=== PATIENT | female | born 1970 | race Hispanic/Latino ===

== ENCOUNTER 2019-10-20 04:06 | Inpatient (IN) | payer OTHER ==
[~2019-10-20] VITALS: Ht 162.6 cm; Wt 80.1 kg
[2019-10-20] VITALS (15 sets, daily range): BP systolic 99–137; BP diastolic 60–88
[2019-10-20] MEDS ORDERED: SODIUM CHLORIDE 0.9% 1000ML 1,000 ML IV STA ×3 (04:18→04:50)
[2019-10-20] MEDS ORDERED: ACETAMINOPHEN 1000 MG/100 ML IV STA (04:18)
[2019-10-20] MEDS ORDERED: ACETAMINOPHEN 1000 MG/100 ML 100 ML IV ONE (04:24)
[2019-10-20] MEDS ORDERED: SODIUM CHLORIDE 0.9% 1000ML 1,000 ML ONE (04:26)
--- NOTE | 2019-10-20 04:26 | Emergency Department Note ---
History of Present Illnes History of Present Illness History of Present Illness This is a 49 year old female invalid patient with tracheostomy brought from [facility] for evaluation of hypoxia . Patient was noted to be desaturating at 78% and interventions such as suction and nebulizer was minimally successful in maintaining adequate oxygenation. Patient brought by EMS , patient alert . Historian: Manager Forms/EMS Arrival Mode: [facility] Treatment NEON PUMPER: IV, O2, See EMS Report History limited by: condition of the patient [employer] Technician Required: No Onset (how long ago): hour(s) (q) Severity: severe Duration (how long): hour(s) (1) Progression: worsening Chronicity: new Context: Reports recent illness Exacerbating factors: none Associated symptoms: Reports shortness of breath Past Medical/Family History Physician Review I have reviewed the patient's past medical and family history. Any updates have been documented here. Past Medical History Recent Fever: Yes Clinical Suspicion of Infectio: Yes New/Unexplained Change in Ment: No Past Medical History: Hypertension, Depression Other Medical History: respiratory failure Other Surgery: tracheostomy Social History Smoking Cessation: Former smoker Alcohol Use: None Any Illegal Drug Use: No Review of Systems ROS Narrative Unable to obtain ROS: critical patient Physical Exam Related Data Allergies: Coded Allergies: No Known Allergies (Unverified , 10/20/19) Triage Vital Signs Vital Signs Date Time Temp Pulse Resp B/P (MAP) Pulse Ox O2 Delivery O2 Flow Rate FiO2 10/20/19 04:10 133 27 100 10/20/19 04:15 102.7 134/97 Mechanical Ventilator 10/20/19 07:10 30.0 100 Vital signs reviewed: Yes Physical Exam CONSTITUTIONAL Constitutional: Present well-developed, Present well-nourished, Present obese, Present distressed HENT HENT: Present normocephalic, Present atraumatic, Present oropharynx clear/moist, Present nose normal HENT L/R: Present left ext ear normal, Present right ext ear normal EYES Eyes: Reports PERRL, Reports conjunctivae normal NECK Neck: Present ROM normal PULMONARY Pulmonary: Present other (decreased breathsounds with tachypnea) CARDIOVASCULAR Cardiovascular: Present heart sounds normal, Present tachycardia GASTROINTESTINAL Abdominal: Present soft, Present nontender, Present bowel sounds normal GENITOURINARY Genitourinary: Present exam deferred SKIN Skin: Present warm, Present dry MUSCULOSKELETAL Musculoskeletal: Present ROM normal NEUROLOGICAL Neurological: Present alert, Present oriented x 3, Present no gross motor or sensory deficits PSYCHOLOGICAL Psychological: Present mood/affect normal, Present judgement normal Results Laboratory Lab results reviewed: Yes Imaging Imaging results reviewed: Yes Impressions [place] [id number] Patient Name: NELSON QUINONES MR #: [id number] : 1970 Age/Sex: 49/F Req #: [id number] Adm Physician: KARLA HODGES MD Ordered by: ISRAEL MINOR DO Report #: [id number] Location: [facility] Room/Bed: [place] [address] Procedure: [id number] CT/CT CHEST WO Exam Date: 10/20/19 Exam Time: 614 REPORT STATUS: Signed EXAM: CT Chest WITHOUT contrast INDICATION: ^dx ^[id number] ^0615 ^Y COMPARISON: Same day chest x-ray TECHNIQUE: Chest was scanned utilizing a multidetector helical scanner from the lung apex through the level of the adrenal glands without administration of IV contrast. Absence of intravenous contrast decreases sensitivity for detection of lymphadenopathy and vascular pathology. Coronal and sagittal reformations were obtained. Routine protocol was performed. IV CONTRAST: None COMPLICATIONS: None RADIATION DOSE: Total DLP: 435.25 mGy*cm Estimated effective dose: (DLP x 0.014 x size factor) mSv CTDIvol has been reviewed. It is below the limits set by the Radiation Protocol Committee (RPC). FINDINGS: LINES/ TUBES: Tracheostomy tube in place with tip in mid to superior trachea. Percutaneous gastrostomy tube in place. LUNGS AND AIRWAYS: Diffuse bilateral airspace opacities. Intralobular septal thickening. Bronchiectasis, right lung greater than left. Anterior right middle lobe cysts/pneumatoceles. Airways are normal. PLEURA: Trace bilateral pleural effusions. Trace left pneumothorax. HEART AND MEDIASTINUM: The visualized thyroid gland is normal. Mediastinal lymphadenopathy. No axillary lymphadenopathy. The heart is borderline in size.. Small pericardial effusion. Main pulmonary artery measures 3.4 cm, suggestive of pulmonary hypertension. Mildly hypodense blood pool, indicative of anemia. UPPER ABDOMEN: Unremarkable. BONES: The visualized bony thorax is within normal limits. SOFT TISSUES: Unremarkable. IMPRESSION: Diffuse bilateral interstitial and airspace opacities, along with interlobular septal thickening, representing combination of edema and pneumonia. Trace bilateral pleural effusions. Trace left pneumothorax. Mediastinal lymphadenopathy. Borderline cardiomegaly and trace pericardial effusion. Enlargement of the MA trunk, suggestive of pulmonary hypertension. Findings discussed with Dr. Mcleod at 7:00 AM, 10/20/2019. Signed by: Dr. Donald Garcia MD on 10/20/2019 7:07 AM Dictated By: DONALD GARCIA MD 6 Transcribed By: KAVYA on 10/20/19706 COPY TO: ISRAEL MINOR DO~ Procedures ABG Interpretation ABG Results: ABG 1 Interpretation: respiratory acidosis Central Line Placement Central Line Location: right femoral MD Prep: mask, gown, gloves, other Central Line Prep: Povidone-Iodine 1% Central Line Lumen Inserted: triple Post Procedure: sutured in place, good blood return, all ports aspirated/flushed/capped, sterile dressing applied Post Procedure X-ray: tip of catheter in good condition Patient tolerated procedure: well Complications: none Critical Care Time Total Critical Care Time (min): 31 Critical care time exclusive o: separately billable procedures Critcal care necessary due to: sepsis Critcal care time spent by me: blood dram for specimens, develop tx plan w patient/surrogate, evaluation patient response to tx, examination of patient, obtaining hx from patient/surrogate, order/perform tx or interventions, order/review laboratory studies, order/review radiographic studies, pulse oximetry, review of old charts, vascular access procedures Assessment & Plan Medical Decision Making MDM Diff dx : tracheostomy obstruction, Sepsis, Pneumonia, COVID-19 URI, Fluid overload, PE Reassessment Reassessment time: 05:45 Reassessment Volume reassessment at bedside. Patient continues to be hypotensive despite aggressive fluid therapy. Plan to initiate vasopressor Levophed Assessment & Plan Final Impression: (1) Septic shock (2) Pneumonia (3) Pulmonary edema (4) Hypoxia Depart Disposition: ADMITTED Home Meds Reported Medications Hydrocodone/Acetaminophen (Lortab 10 mg-300 mg/15 ml Elxr) 473 Ml Solution, 5 ML PO Q4H PRN for SEVERE PAIN (7-10), ML 10/20/19 Ferrous Sulfate (FERROUS SULFATE) 325 Mg Tablet, 220 MG GT DAILY 10/20/19 Famotidine (PEPCID) 20 Mg Tablet, 20 MG PO BID, #60 TAB 10/20/19 Enoxaparin Sodium (ENOXAPARIN SODIUM) 40 Mg/0.4 Ml Disp.syrin, 40 MG SC, SYR 10/20/19 Clonazepam (CLONAZEPAM) 0.5 Mg Tablet, 0.5 MG PO Q8HR PRN for ANXIETY, TAB 10/20/19 Chlorhexidine Gluconate (Peridex) 473 Ml Mouthwash, 10 ML PO DAILY, ML 10/20/19 Chlorhexidine Gluconate (CHLORHEXIDINE GLUCONATE) 1 Each Towelette 10/20/19 Cetirizine Hcl (CETIRIZINE HCL) 10 Mg Tab.chew, 10 MG GT DAILY PRN for ALLERGY 10/20/19 Cefepime Hcl/D5w (CEFEPIME-DEXTROSE 1 GM/50 ML) 1 Gm/50 Ml Piggyback, 1 GM IVP Q8HR for 7 Days, #20 PIGGYBACK 10/20/19 Baclofen (BACLOFEN) 10 Mg Tablet, 10 MG PO BID PRN for MUSCLE SPASMS, TAB 10/20/19 Lorazepam (LORAZEPAM) 2 Mg/1 Ml Vial, 0.5 MG PO BID, VIAL 10/20/19 Dextran 70/Hypromellose (ARTIFICIAL TEARS EYE DROPS) 15 Ml Drops, 15 ML OP Q6H, #1 BOTTLE 10/20/19 Acetaminophen (ACETAMINOPHEN) 325 Mg Tablet, 325 MG PO Q4HR PRN for MILD PAIN (1-3) for 5 Days, TAB 10/20/19 Aripiprazole (ABILIFY) 5 Mg Tablet, 5 MG PO DAILY, #30 TAB 10/20/19 Medications in the ED Acetaminophen 100 ml @ ud STK-MED ONCE IV ; Start 10/20/19 at 04:24; Stop 10/20/19 at 04:18; Status DC Sodium Chloride 1,000 ml @ 0 mls/hr Q0M STAT IV ; Start 10/20/19 at 04:18; Stop 10/20/19 at 04:21; Status DC Piperacillin Sod/ Tazobactam Sod 100 ml @ 100 mls/hr Q6H IV ; Start 10/20/19 at 04:30; Stop 10/27/19 at 04:29; Status UNV Acetaminophen 1,000 mg NOW STAT IV ; Start 10/20/19 at 04:18; Stop 10/20/19 at 04:19; Status UNV Sodium Chloride 1,000 ml @ ud STK-MED ONCE .ROUTE ; Start 10/20/19 at 04:26; Stop 10/20/19 at 04:20; Status DC Piperacillin Sod/ Tazobactam Sod 0 ml @ ud STK-MED ONCE .ROUTE ; Start 10/20/19 at 04:27; Stop 10/20/19 at 04:20; Status DC ISRAEL MINOR DO Oct 20, 2019 04:26
[2019-10-20] MEDS ORDERED: PIPER-TAZ 3.375 GM 0 ML ONE (04:27)
[2019-10-20] MEDS ORDERED: PIPERACILLIN/TAZO 4.5 GM 100 ML IV SCH (04:30)
[2019-10-20 04:33] LABS: BASOPHILS % 0.2 % (0.0-1.0); EOSINOPHILS % 0.1 % (0.0-6.0); HEMATOCRIT 34.5 % (34.2-44.1); HEMOGLOBIN 10.6 g/dL (12.0-16.0); LYMPHOCYTES # (AUTO) 0.3 (1.0-3.2); LYMPHOCYTES % 1.5 % (18.0-39.1); MEAN CORPUSCULAR HEMOGLOBIN 27.5 pg (28-32); MEAN CORPUSCULAR HGB CONC 30.7 g/dL (31-35); MEAN CORPUSCULAR VOLUME 89.6 fL (81-99); MONOCYTES # (AUTO) 0.6 (0.2-0.8); MONOCYTES % 3.1 % (4.4-11.3); NEUTROPHILS # (AUTO) 17.4 (2.1-6.9); NEUTROPHILS % 93.8 % (38.7-80.0); PLATELET COUNT 232 x10e3/uL (140-360); RED BLOOD COUNT 3.85 x10e6/uL (3.6-5.1); RED CELL DISTRIBUTION WIDTH 17.2 % (11.7-14.4)
[2019-10-20 04:48] LABS: INR 1.14; PROTHROMBIN TIME 15.2 seconds (11.9-14.5)
[2019-10-20] MEDS ORDERED: NOREPINEPHRINE INJ 4MG/4ML 8 MG in DEXTROSE 5% 250ML 250 ML IV STA (04:50)
[2019-10-20 04:54] LABS: ALBUMIN 3.7 g/dL (3.5-5.0); ALBUMIN/GLOBULIN RATIO 0.8 (0.8-2.0); ANION GAP 19.7 mmol/L (8-16); CALCIUM 10.4 mg/dL (8.4-10.2); CREATININE, SERUM 1.55 mg/dL (0.57-1.11); POTASSIUM 4.7 mmol/L (3.5-5.1)
[2019-10-20] MEDS ORDERED: NOREPINEPHRINE 8 MG/D5W 250 ML 250 ML ONE ×2 (04:58→11:02)
[2019-10-20 05:00] LABS: CREATINE KINASE MB 3.4 ng/mL (0-5.0)
[2019-10-20 05:08] LABS: B-TYPE NATRIURETIC PEPTIDE2 2244.9 pg/mL (0-100)
--- NOTE | 2019-10-20 05:20 | NUR ---
bp 78/62. levophed increased to 15mcg/min.
--- NOTE | 2019-10-20 05:43 | NUR ---
bp 87/68. levophed increased to 20mcg/min.
[2019-10-20 06:25] LABS: COLOR,URINE YELLOW (YELLOW)
[2019-10-20 06:26] LABS: BILIRUBIN,URINE NEGATIVE (NEGATIVE); CLARITY,URINE SL CLOUDY (CLEAR); KETONES,URINE NEGATIVE (NEGATIVE); LEUKOCYTE ESTERASE ,URINE TRACE (NEGATIVE); NITRITE,URINE NEGATIVE (NEGATIVE); PROTEIN,URINE DIPSTICK >=300 (NEGATIVE); URINE UROBILINOGEN 0.2 mg/dL (0.2 - 1)
--- NOTE | 2019-10-20 06:50 | Diagnostic Imaging Report ---
EXAMINATION: CHEST SINGLE (PORTABLE) INDICATION: ^Y ^ERMD ORDER ^[id number] ^0450 ^Y COMPARISON: None FINDINGS: Right PICC in place. The tip is obscured. TUBES and LINES: Tracheostomy tube in place with tip at the level of the clavicles. LUNGS: Lungs are well inflated. Diffuse bilateral airspace opacities. PLEURA: Suspected small bilateral pleural effusions. No visible pneumothorax. HEART AND MEDIASTINUM: The cardiomediastinal silhouette is obscured. BONES AND SOFT TISSUES: No acute osseous lesion. Soft tissues are unremarkable. UPPER ABDOMEN: No free air under the diaphragm. IMPRESSION: Diffuse bilateral airspace opacities, representing severe edema and/or multifocal pneumonia. Small bilateral pleural effusions. Signed by: Dr. Donald Louise MD on 10/20/2019 6:46 AM
[2019-10-20 07:04] LABS: BACTERIA,URINE FEW /HPF; EPITHELIAL CELLS,URINE FEW /LPF; MUCUS,URINE FEW (RARE); RBC,URINE 0-5 /HPF (0-5); WBC,URINE (MAN) 21-50 /HPF (0-5)
--- NOTE | 2019-10-20 07:05 | NUR ---
bedside report received from Devon Baumann RN, vital signs are as follows BP 112/75, Temp 98.3, HR 99, O2 Sat 100
--- NOTE | 2019-10-20 07:10 | Diagnostic Imaging Report ---
EXAM: CT Chest WITHOUT contrast INDICATION: ^dx ^[id number] ^0615 ^Y COMPARISON: Same day chest x-ray TECHNIQUE: Chest was scanned utilizing a multidetector helical scanner from the lung apex through the level of the adrenal glands without administration of IV contrast. Absence of intravenous contrast decreases sensitivity for detection of lymphadenopathy and vascular pathology. Coronal and sagittal reformations were obtained. Routine protocol was performed. IV CONTRAST: None COMPLICATIONS: None RADIATION DOSE: Total DLP: 435.25 mGy*cm Estimated effective dose: (DLP x 0.014 x size factor) mSv CTDIvol has been reviewed. It is below the limits set by the Radiation Protocol Committee (RPC). FINDINGS: LINES/ TUBES: Tracheostomy tube in place with tip in mid to superior trachea. Percutaneous gastrostomy tube in place. LUNGS AND AIRWAYS: Diffuse bilateral airspace opacities. Intralobular septal thickening. Bronchiectasis, right lung greater than left. Anterior right middle lobe cysts/pneumatoceles. Airways are normal. PLEURA: Trace bilateral pleural effusions. Trace left pneumothorax. HEART AND MEDIASTINUM: The visualized thyroid gland is normal. Mediastinal lymphadenopathy. No axillary lymphadenopathy. The heart is borderline in size.. Small pericardial effusion. Main pulmonary artery measures 3.4 cm, suggestive of pulmonary hypertension. Mildly hypodense blood pool, indicative of anemia. UPPER ABDOMEN: Unremarkable. BONES: The visualized bony thorax is within normal limits. SOFT TISSUES: Unremarkable. IMPRESSION: Diffuse bilateral interstitial and airspace opacities, along with interlobular septal thickening, representing combination of edema and pneumonia. Trace bilateral pleural effusions. Trace left pneumothorax. Mediastinal lymphadenopathy. Borderline cardiomegaly and trace pericardial effusion. Enlargement of the MA trunk, suggestive of pulmonary hypertension. Findings discussed with Dr. Mcleod at 7:00 AM, 10/20/2019. Signed by: Dr. Donald Louise MD on 10/20/2019 7:07 AM
--- NOTE | 2019-10-20 07:49 | NUR ---
repeat lactic acid level of 3.4, per policy, no further repeat lactic acid levels to be drawn, VS are as follows BP or 126/76. HR 94, Temp 98.4, O2 Sat 100%
--- NOTE | 2019-10-20 07:52 | NUR ---
Dr. Melvin at bedside
[2019-10-20] MEDS ORDERED: VANCOMYCIN 1GM/NS 250 ML 250 ML IV ONE ×2 (08:00→13:15)
--- NOTE | 2019-10-20 08:15 | NUR ---
Right PICC Line removed per Dr. Melvin's orders, catheter tip sent to lab for cultures
--- NOTE | 2019-10-20 09:06 | Consultation ---
DATE OF CONSULTATION: Pulmonary Critical Care Consultation CHIEF COMPLAINT: Chronic respiratory failure with temperature, tachycardia, and sepsis. REFERRING PHYSICIAN: Dr. Ciro Grant. HISTORY OF PRESENT ILLNESS: The patient is a 49-year-old woman. She has a history of some chronic respiratory failure of unclear etiology. According to the medical record, she also had a previous episode of methicillin-resistant Staph aureus pneumonia. She was hospitalized recently at [facility] and subsequently transferred to the [facility]. At the [facility], she developed a worsening tachycardia and temperature. She was sent to our hospital for further evaluation. PAST SURGICAL HISTORY: Status post tracheostomy. PAST MEDICAL HISTORY: 1. Chronic respiratory failure. 2. Chronic neurological impairment. 3. Recent Staph aureus pneumonia. SOCIAL HISTORY: The patient came from [facility]. Her smoking and drinking history is unknown. ALLERGIES: NO REPORTED DRUG ALLERGIES. FAMILY HISTORY: Unknown. REVIEW OF SYSTEMS: The patient has had fevers. She is not responsive. Apparently, this is close to her baseline. She has a tracheostomy. She had a PICC line upon arrival. There was no reports of nausea, vomiting, or diarrhea. She had a Palm placed in our emergency department and has some urine output. PHYSICAL EXAMINATION: VITAL SIGNS: The blood pressure is 117/78, saturation is 98%. She is currently on a PRVC mode of ventilation at a rate of 20 with an FiO2 of 70%, and the tidal volume of 450. Her PEEP is set at 8. HEENT: Shows no facial swelling or erythema. LYMPHATIC: Shows no submandibular, cervical, or supraclavicular adenopathy. CARDIAC: Reveals there is a tracheostomy. The site is clean. There is no drainage. CARDIAC: Reveals regular rate and rhythm with normal S1, S2. LUNGS: Auscultation of lungs reveals crackles at the bases. There is no wheezing. ABDOMEN: Soft and nontender. There is no rebound or guarding. EXTREMITIES: Shows no leg edema. She has no rigidity. LABORATORY DATA: Lactic acid was initially 3.7 and is decreased to 3.4. BUN to creatinine ratio is 35 to 1.55. Other electrolytes are within normal limits. The BNP is 2244. Total bilirubin is 1.0. AST is 37. White blood cell count is 18.55, hemoglobin is 10.6, and the platelet count is 232. RADIOGRAPHIC DATA: Chest x-ray and chest CT showed bilateral diffuse airspace opacities. There is a trace left pneumothorax. There is some mediastinal adenopathy. There is some enlarged pulmonary artery. IMPRESSION: 1. Septic shock secondary to pneumonia or PICC line infection, urinary source. 2. Chronic respiratory failure. 3. Acute kidney injury. 4. Anemia, unspecified. 5. Acute on chronic heart failure unspecified. 6. Chronic neurological impairment. PLAN: 1. The patient has received 30 mL/kg of IV fluid. 2. Cultures of blood, urine, sputum have been performed. 3. Remove PICC line and send tip for culture. 4. Repeat chest x-ray at 3:00 p.m. to evaluate for any worsening pneumothorax. 5. Echocardiogram with Cardiology evaluation. The patient may also require some Lasix. 6. Repeat ABG. 7. Obtain records from [facility]. MD SOCORRO [facility]/MAREK /[id number]
[2019-10-20] MEDS ORDERED: MEROPENEM 1 GM VIAL ONE ×2 (09:15→22:29)
[2019-10-20] MEDS: HEPARIN SOD (PORCINE) 5,000 UNIT/ML VIAL SC SCH ×2 (09:16→22:24)
[2019-10-20] MEDS: MEROPENEM 1GRAM 1 GM in SODIUM CHLORIDE 0.9% 100 ML 100 ML IV SCH ×2 (09:16→22:30)
--- NOTE | 2019-10-20 11:06 | NUR ---
NEW BAG OF LEVOPHED STARTED, CURRENT RATE AT 20 MCH/HR
[2019-10-20] MEDS ORDERED: MIDAZOLAM HCL 2 MG/2 ML VIAL IV STA (12:00)
[2019-10-20] MEDS: MIDAZOLAM HCL 2 MG/2 ML VIAL IV NR (12:28)
[2019-10-20] MEDS: FAMOTIDINE 20 MG/2 ML VIAL IV SCH ×2 (13:29→18:38)
[2019-10-20] MEDS: MIDAZOLAM HCL 5MG/ML 10ML VIAL 100 ML IV PRN ×2 (13:29→20:20)
[2019-10-20] MEDS ORDERED: DEXTROSE 50% SYRINGE 50 ML IV PRN (14:15)
[2019-10-20 14:31] LABS: CREATINE KINASE MB 7.3 ng/mL (0-5.0)
[2019-10-20] MEDS: PIPERACILLIN/TAZO 4.5 GM 100 ML IV SCH ×2 (15:02→18:38)
[2019-10-20] MEDS ORDERED: NOREPINEPHRINE INJ 4MG/4ML 8 MG in DEXTROSE 5% 250ML 250 ML IV PRN (15:30)
[2019-10-20 16:20] LABS: ABG HCO3 24 mmol/L (22-26); ABG PCO2 37 mmHg (35-45); ABG PH 7.42 (7.35-7.45); ABG PO2 109 mmHg (80-105); ABG TCO2 25
[2019-10-20] MEDS: INSULIN REGULAR, HUMAN 100 UNIT/1 ML 3ML VIAL SQ SCH ×2 (16:30→20:19)
[2019-10-20] MEDS ORDERED: FENTANYL 50 MCG/HR PATCH TOP SCH (16:30)
[2019-10-20] MEDS ORDERED: ABILIFY5 MG PO (16:32)
[2019-10-20] MEDS ORDERED: ACETAMINOPHEN325 M1 PO (16:34)
[2019-10-20] MEDS ORDERED: ARTIFICIAL TEAR15 ML OP (16:38)
[2019-10-20] MEDS ORDERED: LORAZEPAM2 MG/1 M1 PO (16:41)
--- NOTE | 2019-10-20 16:41 | Diagnostic Imaging Report ---
EXAMINATION: CHEST SINGLE (PORTABLE) INDICATION: resp failure COMPARISON: Chest x-ray dated 10/20/2019. CT chest dated 10/20/2019. FINDINGS: TUBES and LINES: Right PICC not seen on this exam. Tracheostomy tube in place with tip at the level of the clavicles. LUNGS/PLEURA: Diffuse bilateral interstitial and airspace opacities representing combination of edema and pneumonia, unchanged. Trace bilateral pleural effusions and a small left pneumothorax with air seen on prior CT chest. HEART AND MEDIASTINUM: The cardiomediastinal silhouette is obscured. BONES AND SOFT TISSUES: No acute osseous lesion. Soft tissues are unremarkable. UPPER ABDOMEN: No free air under the diaphragm. IMPRESSION: No significant change in diffuse bilateral airspace opacities, representing severe edema and/or multifocal pneumonia. Unchanged small bilateral pleural effusions. Signed by: Kranthi Nation MD on 10/20/2019 4:38 PM
[2019-10-20] MEDS ORDERED: BACLOFEN10 MG PO (16:42)
[2019-10-20] MEDS ORDERED: CEFEPIME-D1 GM/50 ML IVP (16:44)
[2019-10-20] MEDS ORDERED: CLONAZEPAM0.5 MG PO (16:51)
[2019-10-20] MEDS ORDERED: ENOXAPARIN40 MG/0.4 SC (16:51)
[2019-10-20] MEDS ORDERED: CETIRIZINE HCL10 M1 GT (16:51)
[2019-10-20] MEDS ORDERED: PERIDEX473 M1 PO (16:51)
[2019-10-20] MEDS ORDERED: CHLORHEXIDINE1 EACH (16:51)
[2019-10-20] MEDS ORDERED: LORTAB 10 MG-3473 ML PO (16:57)
[2019-10-20] MEDS ORDERED: FERROUS SULFAT325 MG GT (16:57)
[2019-10-20] MEDS ORDERED: PEPCID20 MG PO (16:57)
[2019-10-20] MEDS ORDERED: MIDAZOLAM HCL 5 MG/ML VIAL ONE (19:17)
[2019-10-20 21:40] LABS: CREATINE KINASE MB 4.9 ng/mL (0-5.0)
[2019-10-20] MEDS ORDERED: SODIUM CHLORIDE 0.9% 100 ML ONE (22:29)
[2019-10-20] MEDS ORDERED: ARIPIPRAZOLE 5 MG TABLET PO ONE (23:45)
[2019-10-20] MEDS ORDERED: FENTANYL CITRATE INJ 2,000 MCG in SODIUM CHLORIDE 0.9% 250ML 210 ML IV PRN (23:45)
--- NOTE | 2019-10-20 23:53 | Diagnostic Imaging Report ---
EXAMINATION: CHEST SINGLE (PORTABLE) INDICATION: ^tachypnea ^Y COMPARISON: Same day x-ray FINDINGS: AP view TUBES and LINES: Stable tracheostomy tube. LUNGS: Lungs are well inflated. Unchanged diffuse bilateral airspace opacities. PLEURA: Small bilateral pleural effusions. No visible pneumothorax. HEART AND MEDIASTINUM: The cardiomediastinal silhouette is obscured. BONES AND SOFT TISSUES: No acute osseous lesion. Soft tissues are unremarkable. UPPER ABDOMEN: No free air under the diaphragm. IMPRESSION: No significant interval change from prior exam. Signed by: Dr. Donald Louise MD on 10/20/2019 11:49 PM
[2019-10-21] VITALS (23 sets, daily range): BP systolic 87–136; BP diastolic 53–94
[2019-10-21 00:08] LABS: BASOPHILS % 0.2 % (0.0-1.0); EOSINOPHILS # (AUTO) 0.1 (0.0-0.4); EOSINOPHILS % 0.4 % (0.0-6.0); HEMATOCRIT 28.4 % (34.2-44.1); HEMOGLOBIN 8.8 g/dL (12.0-16.0); LYMPHOCYTES # (AUTO) 0.8 (1.0-3.2); LYMPHOCYTES % 5.2 % (18.0-39.1); MEAN CORPUSCULAR HEMOGLOBIN 27.3 pg (28-32); MEAN CORPUSCULAR VOLUME 88.2 fL (81-99); MONOCYTES # (AUTO) 1.1 (0.2-0.8); MONOCYTES % 7.1 % (4.4-11.3); NEUTROPHILS # (AUTO) 13.4 (2.1-6.9); NEUTROPHILS % 86.3 % (38.7-80.0); PLATELET COUNT 218 x10e3/uL (140-360); RED BLOOD COUNT 3.22 x10e6/uL (3.6-5.1); RED CELL DISTRIBUTION WIDTH 17.4 % (11.7-14.4)
[2019-10-21] MEDS ORDERED: FENTANYL 2000MCG/NS 250 250 ML ONE (00:40)
[2019-10-21] MEDS ORDERED: MEROPENEM 1GM 100 ML IV ONE (05:52)
[2019-10-21 05:57] LABS: ALANINE AMINOTRANSFERASE 46 IU/L (0-55); ALBUMIN 3.3 g/dL (3.5-5.0); ALBUMIN/GLOBULIN RATIO 0.8 (0.8-2.0); ALKALINE PHOSPHATASE 134 IU/L (40-150); ANION GAP 14.7 mmol/L (8-16); BLOOD UREA NITROGEN 17 mg/dL (7-26); BUN/CREATININE RATIO 20 (6-25); CALCIUM 9.5 mg/dL (8.4-10.2); CARBON DIOXIDE 22 mmol/L (22-29); CHLORIDE 106 mmol/L (98-107); CREATININE, SERUM 0.84 mg/dL (0.57-1.11); EST GLOMERULAR FILTRATION RATE > 60 ML/MIN (60-); GLUCOSE 153 mg/dL (74-118); POTASSIUM 3.7 mmol/L (3.5-5.1); SODIUM 139 mmol/L (136-145)
[2019-10-21] MEDS: MEROPENEM 1GRAM 1 GM in SODIUM CHLORIDE 0.9% 100 ML 100 ML IV SCH (07:12)
[2019-10-21] MEDS: MIDAZOLAM HCL 5MG/ML 10ML VIAL 100 ML IV PRN ×2 (07:13→07:15)
--- NOTE | 2019-10-21 08:23 | Diagnostic Imaging Report ---
EXAMINATION: CHEST SINGLE (PORTABLE) INDICATION: resp failure COMPARISON: Chest x-ray dated 10/20/2019. FINDINGS: AP view TUBES and LINES: Stable tracheostomy tube. LUNGS: Lungs are well inflated. Unchanged diffuse bilateral airspace opacities. PLEURA: Unchanged bilateral pleural effusions. No visible pneumothorax. HEART AND MEDIASTINUM: The cardiomediastinal silhouette is obscured. BONES AND SOFT TISSUES: No acute osseous lesion. Soft tissues are unremarkable. UPPER ABDOMEN: No free air under the diaphragm. IMPRESSION: No significant interval change from prior exam. Signed by: Kranthi Nation MD on 10/21/2019 8:20 AM
[2019-10-21] MEDS: INSULIN REGULAR, HUMAN 100 UNIT/1 ML 3ML VIAL SQ SCH ×4 (09:09→21:25)
[2019-10-21] MEDS: ARIPIPRAZOLE 5 MG TABLET PO SCH (09:10)
[2019-10-21] MEDS: FAMOTIDINE 20 MG/2 ML VIAL IV SCH ×2 (09:10→17:25)
[2019-10-21] MEDS: HEPARIN SOD (PORCINE) 5,000 UNIT/ML VIAL SC SCH (09:11)
[2019-10-21] MEDS: ACETAMINOPHEN 325 MG TAB PO PRN ×3 (10:00→20:49)
[2019-10-21 10:57] LABS: ABG HCO3 26 mmol/L (22-26); ABG PCO2 59 mmHg (35-45); ABG PH 7.27 (7.35-7.45); ABG PO2 59 mmHg (80-105); ABG TCO2 28
[2019-10-21] MEDS: MEROPENEM 1GM 100 ML IV SCH ×2 (14:43→21:49)
[2019-10-21] MEDS: VANCOMYCIN 1GM/NS 250 ML 250 ML IV SCH (14:43)
--- NOTE | 2019-10-21 15:11 | Progress Note ---
DATE: SUBJECTIVE: The patient is more awake today, but complains of anxiety. She is requiring Versed at 5 mg along with fentanyl intravenously. She remains on a mechanical ventilator with a PRVC set at a rate of 20 and tidal volume of 400. FiO2 is set at 85% and PEEP is set at 10. She is breathing over the vent in the mid 20s. Her Levophed is down to 10 mcg. PHYSICAL EXAMINATION: VITAL SIGNS: The patient is afebrile. The blood pressure is 96/63 and pulse is 101. Saturation is 94%. HEENT: Shows no facial swelling or erythema. LYMPHATIC: Shows no submandibular, cervical, or supraclavicular adenopathy. CARDIAC: Reveals regular rate and rhythm with normal S1 and S2. LUNGS: Auscultation of lungs reveals clear breath sounds bilaterally. There is no wheezing. ABDOMEN: Soft and nontender. There is no rebound or guarding. EXTREMITIES: Show no leg edema or calf tenderness. There is no cyanosis or clubbing. SKIN: Shows no rashes. NEUROLOGICAL: Shows no focal abnormalities. LABORATORY DATA: White blood cell count is 15.6 and the hemoglobin is 8.8. The platelet count is 218. The BUN to creatinine ratio is 17 to 0.84. The other electrolytes are within normal limits. The albumin is 3.3. MICROBIOLOGICAL DATA: Catheter tip is growing Staph aureus. Blood cultures are still pending. Sputum is showing gram-negative rods. IMPRESSION: 1. [id number] respiratory failure. 2. Gram-negative giana pneumonia with severe sepsis, present on admission. 3. Staph aureus bacteremia with severe sepsis, present on admission. 4. Acute kidney injury. 5. Anemia, unspecified. 6. Mvgua-ut-qbufclp heart failure, unspecified. PLAN: 1. Continue current ventilator settings and monitor ABGs. 2. Continue vancomycin and meropenem. 3. Await echocardiogram results. 4. Repeat blood cultures and await final sputum sensitivities. 5. Tracheostomy changed today. 6. Continue Versed and fentanyl in addition to Abilify. 7. Enteral feedings. 8. Lovenox for DVT prophylaxis. Greater than 35 minutes in direct critical care time. Jorge Luis Melvin MD [facility] /[id number]
[2019-10-21] MEDS: FENTANYL 2000MCG/NS 250 250 ML IV PRN (15:36)
--- NOTE | 2019-10-21 16:00 | NUR ---
MD STEINBERG AWARE OF LOW URINE OUTPUT, ELEVATED TEMP AND INCREASING HEART RATE. 500CC BOLUS ORDERED. RN WILL CONTINUE TO MONITOR FOR CHANGES.
[2019-10-21] MEDS ORDERED: LACTATED RINGER'S 500 ML INJ ONE (16:15)
[2019-10-21] MEDS: ENOXAPARIN SOD INJ 40 MG/0.4 ML SYR SC SCH (17:25)
[2019-10-21] MEDS: MIDAZOLAM HCL 2 MG/2 ML VIAL IV NR (17:25)
[2019-10-22] VITALS (25 sets, daily range): BP systolic 85–125; BP diastolic 52–89
[2019-10-22] MEDS: VANCOMYCIN 1GM/NS 250 ML 250 ML IV SCH ×2 (01:13→15:18)
[2019-10-22] MEDS: ACETAMINOPHEN 325 MG TAB PO PRN ×3 (01:14→17:33)
[2019-10-22] MEDS: MIDAZOLAM HCL 5MG/ML 10ML VIAL 100 ML IV PRN ×2 (02:54→13:54)
[2019-10-22] MEDS: MEROPENEM 1GM 100 ML IV SCH ×3 (05:31→21:07)
--- NOTE | 2019-10-22 06:34 | Diagnostic Imaging Report ---
EXAMINATION: CHEST SINGLE (PORTABLE) INDICATION: ^resp failure ^[id number] ^0550 COMPARISON: 10/21/2019 FINDINGS: AP view TUBES and LINES: Stable tracheostomy tube. LUNGS: Lungs are well inflated. Redemonstration of diffuse bilateral airspace opacities. PLEURA: No pneumothorax. Suspected small bilateral pleural effusions. HEART AND MEDIASTINUM: The cardiomediastinal silhouette is obscured. BONES AND SOFT TISSUES: No acute osseous lesion. Soft tissues are unremarkable. UPPER ABDOMEN: No free air under the diaphragm. IMPRESSION: No interval change from prior exam. Signed by: Dr. Donald Louise MD on 10/22/2019 6:30 AM
[2019-10-22 07:14] LABS: BASOPHILS # (AUTO) 0.1 (0.0-0.1); BASOPHILS % 0.4 % (0.0-1.0); EOSINOPHILS # (AUTO) 0.3 (0.0-0.4); HEMATOCRIT 31.5 % (34.2-44.1); HEMOGLOBIN 8.9 g/dL (12.0-16.0); LYMPHOCYTES # (AUTO) 1.4 (1.0-3.2); LYMPHOCYTES % 9.5 % (18.0-39.1); MEAN CORPUSCULAR HEMOGLOBIN 26.8 pg (28-32); MEAN CORPUSCULAR HGB CONC 28.3 g/dL (31-35); MEAN CORPUSCULAR VOLUME 94.9 fL (81-99); MONOCYTES # (AUTO) 1.1 (0.2-0.8); MONOCYTES % 7.5 % (4.4-11.3); NEUTROPHILS # (AUTO) 11.1 (2.1-6.9); NEUTROPHILS % 78.3 % (38.7-80.0); PLATELET COUNT 274 x10e3/uL (140-360); RED BLOOD COUNT 3.32 x10e6/uL (3.6-5.1); RED CELL DISTRIBUTION WIDTH 18.1 % (11.7-14.4)
[2019-10-22] MEDS: INSULIN REGULAR, HUMAN 100 UNIT/1 ML 3ML VIAL SQ SCH ×4 (07:17→22:17)
[2019-10-22 07:21] LABS: ALBUMIN 3.3 g/dL (3.5-5.0); ALBUMIN/GLOBULIN RATIO 0.8 (0.8-2.0); ANION GAP 15.6 mmol/L (8-16); CREATININE, SERUM 1.09 mg/dL (0.57-1.11); POTASSIUM 4.6 mmol/L (3.5-5.1)
[2019-10-22 07:45] LABS: ABG HCO3 27 mmol/L (22-26); ABG PCO2 71 mmHg (35-45); ABG PH 7.18 (7.35-7.45); ABG PO2 50 mmHg (80-105); ABG TCO2 29
[2019-10-22 09:30] LABS: ABG HCO3 27 mmol/L (22-26); ABG PCO2 64 mmHg (35-45); ABG PH 7.24 (7.35-7.45); ABG PO2 96 mmHg (80-105); ABG TCO2 29
[2019-10-22] MEDS: FAMOTIDINE 20 MG/2 ML VIAL IV SCH ×2 (10:10→17:00)
[2019-10-22] MEDS: ARIPIPRAZOLE 5 MG TABLET PO SCH (10:10)
[2019-10-22] MEDS ORDERED: DEXMEDETOMIDINE HCL 200 MCG in SODIUM CHLORIDE 0.9% 50ML 48 ML IV PRN (13:30)
--- NOTE | 2019-10-22 13:50 | NUR ---
Per MD Ike Gregorio was consulted for infectious disease. RN called ID office and spoke with Sivan zhang consult.
[2019-10-22] MEDS: FENTANYL 2000MCG/NS 250 250 ML IV PRN (13:55)
--- NOTE | 2019-10-22 14:44 | NUR ---
INFECTIOUS DISEASE CONSULT DR. BOO CC: Bacteremia HPI: This is a 49 year old female well [facility]. She has a PMH of anoxic brain injury and chronic trach. Of note, she was on trach co llar [facility], and is vent dependent here. She was admitted to [facility] with worsening respiratory status. She was found to be septic on admission. She was admitted with septic shock present upon arrival to the ED. We were consulted for the antibiotic management. PMH: Anoxic brain injury, Acute on chronic hypercapnic/hypoxic resp. fx, trach status PAST SURGICAL HX: trach/peg SOCIAL HX: non contributory ROS unobtainable due to trach/PEG ALL 14 POINT ROS NEG UNLESS OTHERWISE NOTED PHYSICAL EXAM GENERAL: sedated, trach status, vent in ICU HEENT: chronically ill appearing, atraumatic, normocephalic CV: s1, s2, without s3, s4 CHEST: rhonchi, shiley 6 ABD: soft, non-tender, PEG EXT: no joint swelling NEURO: unable to obtain LABS: reviewed RADIOLOGY: reviewed IMPRESSION: 1. Aspiration PNA vs HAP 2. Bacteremia- coag neg staph and enterococcus -PICC line present on admission 3. Pseudomonas 4. chronic trach 5. anemia of chronic disease 6. anoxic brain injury 7. acute on chronic respiratory failure PLAN: Vanco/Merrem, line removal, blood cultures repeat in 48 hrs. Plan for 14 days of both ABT if repeat blood cultures are negative DISCUSSED WITH RT/RN Leda Fowler MSN, ADMINISTRATIVE OFFICE MANAGER, [facility]
[2019-10-22] MEDS ORDERED: VASOPRESSIN 60 UNIT in DEXTROSE 5% 50ML 57 ML IV SCH (15:15)
[2019-10-22] MEDS: CLONAZEPAM 0.5 MG TAB PO SCH ×2 (15:18→21:07)
--- NOTE | 2019-10-22 16:20 | NUR ---
Nutrition Intervention Note RD Recommendation(s) for Physician: -Recommend to continue Vital AF 1.2 and increase goal rate to 50 mL/hr (provides 1440 kcal, 90 g protein) -Water/fluid management per MD Plan of Care: RD following, monitoring for tolerance and adequacy, tube feed recommendation Nutrition reason for involvement: Nutrition Risk Trigger, enteral nutrition RD Assessment (10/22/19) Pt is a 49 year old female admitted with septic shock and pneumonia. Pt is from a LTAC facility. Pt is mechanically ventilated and has a tracheostomy. Unable to obtain nutrition history from pt. There are no previous weights in chart. Pt is receiving Vital AF 1.2 @ 30 mL/hr through PEG tube. Recommendations provided. RD to manage TF order per Dr. Melvin. Will continue to monitor. Principal Problems/Diagnoses: septic shock and pneumonia. PMH: Chronic respiratory failure, Chronic neurological impairment, Recent Staph aureus pneumonia. GI: last recorded BM 10/20, round abdomen Skin: intact Labs: (10/21) Na 138, K 4.6, BUN 23, Cr 1.09, Glu 182 Meds: norepinephrine, pepcid, insulin, antibiotic, fentanyl Ht: 64 inches Wt: 160 lbs BMI: 27.5 kg/m2 IBW: 120 lbs Malnutrition Evaluation (10/22/19) The patient does not meet criteria for a specified degree of malnutrition. Unable to fully assess at this time. Will re-evaluate at follow-up as appropriate. Nutrition Prescription (Diet Order): Vital AF 1.2 @ 30 mL/hr (provides 864 kcal, 54 g protein) Estimated Nutritional Needs: 5950-8118 calories/day (18-20 kcal/kg CBW) 87-145 g protein/day (1.2-2g pro/kg CBW) Diet Adequacy: Not meeting calorie needs, Not meeting protein needs Tolerance: Tolerating TF Diet Education Needs Assessment: Diet education not indicated, patient is mechanically ventilated Nutrition Care Level: moderate Nutrition Diagnosis: Inadequate oral intake related to trach/mechanical ventilation as evidenced by pt requiring enteral nutrition. Goal: Patient will meet 75-100% of estimated needs by follow up Progress: N/A Interventions: - Composition, Rate, Route, Recommended Modifications, Collaboration with other providers Monitoring/Evaluation: -Total energy intake, Total protein intake, Formula/Solution, Weight change Signed: Devi Nelson RD, LD
[2019-10-22] MEDS: ENOXAPARIN SOD INJ 40 MG/0.4 ML SYR SC SCH (17:00)
[2019-10-22] MEDS: VASOPRESSIN 60 UNIT in DEXTROSE 5% 50ML 57 ML IV SCH (17:32)
[2019-10-23] VITALS (30 sets, daily range): BP systolic 91–146; BP diastolic 48–106
[2019-10-23] MEDS: ACETAMINOPHEN 325 MG TAB PO PRN ×3 (00:23→14:20)
[2019-10-23] MEDS: VANCOMYCIN 1GM/NS 250 ML 250 ML IV SCH ×2 (03:13→14:20)
[2019-10-23] MEDS: MEROPENEM 1GM 100 ML IV SCH ×3 (05:07→21:42)
[2019-10-23 05:51] LABS: BASOPHILS # (AUTO) 0.1 (0.0-0.1); BASOPHILS % 0.3 % (0.0-1.0); EOSINOPHILS # (AUTO) 0.1 (0.0-0.4); EOSINOPHILS % 0.4 % (0.0-6.0); HEMATOCRIT 30.7 % (34.2-44.1); LYMPHOCYTES # (AUTO) 1.5 (1.0-3.2); MEAN CORPUSCULAR HEMOGLOBIN 27.9 pg (28-32); MEAN CORPUSCULAR HGB CONC 29.3 g/dL (31-35); MONOCYTES # (AUTO) 1.3 (0.2-0.8); MONOCYTES % 8.2 % (4.4-11.3); NEUTROPHILS % 79.4 % (38.7-80.0); PLATELET COUNT 292 x10e3/uL (140-360); RED BLOOD COUNT 3.23 x10e6/uL (3.6-5.1); RED CELL DISTRIBUTION WIDTH 17.7 % (11.7-14.4)
[2019-10-23 06:21] LABS: ALBUMIN 3.3 g/dL (3.5-5.0); ALBUMIN/GLOBULIN RATIO 0.8 (0.8-2.0); ANION GAP 15.4 mmol/L (8-16); CALCIUM 9.4 mg/dL (8.4-10.2); CREATININE, SERUM 0.99 mg/dL (0.57-1.11); POTASSIUM 5.4 mmol/L (3.5-5.1)
[2019-10-23] MEDS: DEXMEDETOMIDINE 200MCG/NS 50ML 50 ML IV PRN ×2 (07:00→12:25)
--- NOTE | 2019-10-23 08:53 | NUR ---
FROM [facility]
[2019-10-23] MEDS ORDERED: SODIUM CHLORIDE 0.9% 500ML 500 ML IV ONE (09:00)
[2019-10-23] MEDS ORDERED: SODIUM BICARBONATE 8.4% INJ 50 ML SYR IV ONE (09:15)
[2019-10-23 09:18] LABS: ABG HCO3 25 mmol/L (22-26); ABG PCO2 65 mmHg (35-45); ABG PH 7.23 (7.35-7.45); ABG PO2 68 mmHg (80-105); ABG TCO2 27
[2019-10-23] MEDS: INSULIN REGULAR, HUMAN 100 UNIT/1 ML 3ML VIAL SQ SCH ×4 (09:25→21:35)
[2019-10-23] MEDS: SERTRALINE HCL 50 MG TAB PO SCH (09:25)
[2019-10-23] MEDS: FAMOTIDINE 20 MG/2 ML VIAL IV SCH ×2 (09:25→17:00)
[2019-10-23] MEDS: CLONAZEPAM 0.5 MG TAB PO SCH ×3 (09:25→20:34)
[2019-10-23] MEDS: ARIPIPRAZOLE 5 MG TABLET PO SCH (09:25)
--- NOTE | 2019-10-23 10:00 | NUR ---
MD LOZANO AWARE OF INCREASED TEMPS, HR AND LOW BLOOD PRESSURE. 500CC BOLUS ORDERED
--- NOTE | 2019-10-23 14:49 | NUR ---
WOUND CARE CONSULT 49 YO FEMALE HX OF SEPTIC SHOCK ,PNEU CHARLETTE 15 0N MODERATE PUP STATUS AND INTERVENTIONS ALTERNATING PRESSURE MATTRESS LABS: WBC- 16.40 HGB- 9 GLUCOSE-186 SKIN ASSESSMENT COMPLETE PATIENT PRESENTS WITH RED IRRITATED SACRAL CREASE R/T MOISTURE RECOMMENDATIONS: NURSING TO CONTINUE TO MONITOR PATIENT AND KEEP SKIN CLEAN AND FREE FROM LOOSE STOOL OR IRRITATING MOISTURE AND CONTINUE TO FOLLOW MODERATE PUP INTERVENTIONS NURSING TO CONTINUE TO GET PATIENT OUT OF BED FOR MEALS AND MUCH TOLERATED NURSING TO CLEAN RED IRRITATED SACRAL CREASE WITH NORMAL SALINE DAILY AND APPLY VENELEX OINTMENT TO .. AND COVER WITH ALLEVYN FOAM DRESSING Addendum: 10/23/19 at 1453 by Ezra Fuentes RN Amended: Links added.
--- NOTE | 2019-10-23 16:01 | NUR ---
progress note patient is worse on vent on vasopressors with fever resp failure noncommunicative HEENT NOT PALE nort icteric chest rhonchi cor S1S2 ABDOMEN SOFT diffuse discomfort ext no edema sepsis r/o intraabdominal infection \too ill for CT ABDOMEN DISCUSSED
[2019-10-23] MEDS ORDERED: DIATRIZOATE MEGL/DIATRIZOA SOD 30 ML BTL PO ONE (16:43)
[2019-10-23] MEDS: ENOXAPARIN SOD INJ 40 MG/0.4 ML SYR SC SCH (17:00)
[2019-10-23] MEDS: VASOPRESSIN 60 UNIT in DEXTROSE 5% 50ML 57 ML IV SCH (17:01)
[2019-10-23] MEDS: FENTANYL 2000MCG/NS 250 250 ML IV PRN (17:01)
--- NOTE | 2019-10-23 18:00 | NUR ---
MD BOO AWARE OF INCREASED TEMPS, HR, LOW BLOOD PRESSURE AND PRESSOR USE. PT WAS PLACED ON COOLING BLANKET IN MORNING TO HELP DECREASE TEMPS. MD BOO ALSO MADE AWARE OF LOW URINE OUTPUT. ORDERED CT SCAN OF ABDOMEN AND PELVIS. PT TOLERATED CT SCAN WELL. RN WILL CONTINUE TO MONITOR.
--- NOTE | 2019-10-23 18:06 | Progress Note ---
DATE: SUBJECTIVE: Ms. Dick remains in intensive care unit. She is having fever. She is extremely ill today. I called the daughter to discuss with her that the patient apparently in 2016 she was diagnosed with colon cancer. She received surgery as well as chemo. She did well she was told and then in 2018, she was diagnosed with lung cancer. In January 06, she was admitted for surgery. Apparently during her stay, she had a very prolonged hospitalization and complication. She had to be intubated again. She was in coma for six months according to the family. She had to be trached and the patient was transferred recently to [facility] and she was transferred here for altered mental status. The patient, who does not really provide any further information. She was transferred here. We started IV antibiotic. She was bacteremic. PHYSICAL EXAMINATION: GENERAL: Today, she is intubated and sedated. HEENT: She is not icteric. NECK: Supple. CHEST: Rhonchi. HEART: S1, S2. ABDOMEN: Soft. IMPRESSION: 1. Sepsis on admission, bacteremia with MRSA, line related, present on admission, Enterococcus bacteremia, pneumonia, aspiration pneumonia, probably Pseudomonas aeruginosa, aspiration. She is currently on vancomycin, currently on meropenem. I am concerned at present in she is deteriorating, concerned about an abdominal sepsis. We will get CT abdomen and pelvis. She is extremely ill followed by elevated liver enzyme today could be from sepsis, anemia of chronic disease. 2. Metabolic encephalopathy, anoxic brain injury probably. We will recheck CBC. Recheck Chem panel in the morning. CAT scan of the abdomen and pelvis today. Discussed with the family at length. Answered all their questions. MD CARLOS Braswell/MAREK /[id number]
[2019-10-23] MEDS ORDERED: IOPAMIDOL 370 MG/ML 200 ML INFUS..BTL INJ ONE (18:39)
--- NOTE | 2019-10-23 18:43 | Diagnostic Imaging Report ---
EXAM: CT Abdomen and Pelvis WITH contrast INDICATION: Abdominal pain concerning for infection. COMPARISON: Multiple prior chest x-rays including most recent on 10/22/2019. TECHNIQUE: Abdomen and pelvis were scanned utilizing a multidetector helical scanner from the lung base to the pubic symphysis after administration of IV contrast. Coronal and sagittal reformations were obtained. Routine protocol was performed. Scan was performed when during portal venous phase. IV CONTRAST: 100 mL of Isovue 370 ORAL CONTRAST: None COMPLICATIONS: None RADIATION DOSE: Total DLP: 845.84 mGy*cm Estimated effective dose: (DLP x 0.015 x size factor) mSv CTDIvol has been reviewed. It is below the limits set by the Radiation Protocol Committee (RPC). Dose modulation, iterative reconstruction, and/or weight based adjustment of the mA/kV was utilized to reduce the radiation dose to as low as reasonably achievable. FINDINGS: LINES and TUBES: Right femoral venous central catheter. LOWER THORAX: There is diffuse groundglass and consolidative opacity at the lung bases compatible with known multifocal pneumonia. The right ventricle appears larger than the left ventricle. No filling defects identified within the partially imaged pulmonary arteries. HEPATOBILIARY: The liver is diffuse hypodense compared to the spleen, consistent with diffuse hepatic diffuse hepatic steatosis. No focal hepatic lesions. No biliary ductal dilation. GALLBLADDER: No radio-opaque stones or sludge. No wall thickening. SPLEEN: No splenomegaly. PANCREAS: No focal masses or ductal dilatation. ADRENALS: No adrenal nodules KIDNEYS/URETERS: Kidneys enhance symmetrically. No hydronephrosis. No cystic or solid mass lesions. There is a nonobstructive stone in the inferior pole the left kidney. GI TRACT: There are postoperative changes of partial colectomy. No abnormal distention, wall thickening, or evidence of bowel obstruction. Appendix is not visualized, however no secondary signs of appendicitis. PELVIC ORGANS/BLADDER: The urinary bladder is decompressed with a Palm catheter in place. There is small amount of free fluid in the pelvis around the uterus and urinary bladder. There is an ill-defined focus of hyperdensity in the uterine fundus (series 4 image 81). LYMPH NODES: No lymphadenopathy. VESSELS: Unremarkable. PERITONEUM / RETROPERITONEUM: Small amount of free fluid in the lower abdomen. No free air. BONES: There are mild degenerative changes in the spine. SOFT TISSUES: Punctate soft tissue density in the anterior subcutaneous tissues, likely self injection. IMPRESSION: 1. No evidence of intra-abdominal abscess. 2. Small amount of free fluid in the lower abdomen and pelvis surrounding the uterus and urinary bladder is indeterminate. This can be correlated with urinalysis and dedicated pelvic ultrasound if clinically indicated. 3. Diffuse groundglass and consolidative opacity at the lung bases compatible with known multifocal pneumonia. 4. Findings suggestive of right ventricular strain in the partially imaged heart, which is indeterminate. No filling defects identified within the partially imaged pulmonary arteries. Consider cardiac workup. 5. Nonobstructive left nephrolithiasis. 6. Indeterminate, ill-defined focus of hyperdensity in the uterine fundus which likely represents calcified fibroid. Signed by: Lucho Archibald MD on 10/23/2019 6:39 PM
--- NOTE | 2019-10-23 19:00 | NUR ---
Bedside Report Received. Patient in bed with HOB elevated. PUPILS 2mm and Sluggish. Patient noted on Vent Fio2 80% PEEP8 20RR 400 TV. Patient noted on Cooling [place] with a Temperature of 99.6 Patient noted on Levophed at 20mcg/min Precedex at 0.7 mcg xkg xhr Vasopressin at 0.07 units/min and Fentanyl at 50mcg. Safety Maintained. Will continue to Monitor Patient.
--- NOTE | 2019-10-23 22:00 | NUR ---
Patient temperature Noted dropping from 99.6 to 97.6 SET POINT was 98.2 on the MACHINE. Charge NURSE at bedside helping. WARMING blanket with OMKAR-HUGGER applied to Patient. Will continue to monitor Patient.
--- NOTE | 2019-10-23 23:00 | NUR ---
Core temperature from VARGAS probe 96.5 Oral temperature from Thermometer 97.5 Will continue to Monitor Closely. Safety Maintained.
[2019-10-24] VITALS (23 sets, daily range): BP systolic 83–122; BP diastolic 29–90
[2019-10-24] MEDS: VANCOMYCIN 1GM/NS 250 ML 250 ML IV SCH ×2 (01:10→13:26)
[2019-10-24] MEDS: ACETAMINOPHEN 325 MG TAB PO PRN (04:01)
[2019-10-24 04:50] LABS: BASOPHILS # (AUTO) 0.2 (0.0-0.1); BASOPHILS % 0.6 % (0.0-1.0); EOSINOPHILS # (AUTO) 0.1 (0.0-0.4); EOSINOPHILS % 0.6 % (0.0-6.0); HEMATOCRIT 29.6 % (34.2-44.1); HEMOGLOBIN 8.6 g/dL (12.0-16.0); LYMPHOCYTES # (AUTO) 1.2 (1.0-3.2); LYMPHOCYTES % 4.6 % (18.0-39.1); MEAN CORPUSCULAR HGB CONC 29.1 g/dL (31-35); MEAN CORPUSCULAR VOLUME 93.1 fL (81-99); MONOCYTES # (AUTO) 1.8 (0.2-0.8); MONOCYTES % 7.1 % (4.4-11.3); NEUTROPHILS # (AUTO) 20.7 (2.1-6.9); NEUTROPHILS % 82.3 % (38.7-80.0); PLATELET COUNT 229 x10e3/uL (140-360); RED BLOOD COUNT 3.18 x10e6/uL (3.6-5.1); RED CELL DISTRIBUTION WIDTH 17.9 % (11.7-14.4)
[2019-10-24 05:11] LABS: ANION GAP 18.1 mmol/L (8-16); CREATININE, SERUM 1.04 mg/dL (0.57-1.11); POTASSIUM 5.1 mmol/L (3.5-5.1)
[2019-10-24] MEDS ORDERED: NOREPINEPHRINE 8 MG/D5W 250 ML 250 ML ONE (05:32)
[2019-10-24] MEDS: MEROPENEM 1GM 100 ML IV SCH ×3 (06:06→21:40)
--- NOTE | 2019-10-24 07:00 | NUR ---
Bedside Report given to RN. No acute changes noted VSS. BP 108/88 MAP 96 HR 110 Sat 96% RR 18
[2019-10-24 07:28] LABS: ANISOCYTOSIS SLIGHT; BAND NEUTROPHILS % (MANUAL) 1 %; LYMPHOCYTES % (MANUAL) 7 % (19-48); MONOCYTES % (MANUAL) 4 % (3.4-9.0); MYELOCYTES % (MANUAL) 3 % (0-0); NEUTROPHILS % (MANUAL) 85 % (40-74); NUCLEATED RED BLOOD CELLS 1; PLATELET ESTIMATE ADEQUATE; PLATELET MORPHOLOGY COMMENT NORMAL
[2019-10-24 07:29] LABS: RBC MORPHOLOGY COMMENT NORMAL
[2019-10-24 08:13] LABS: ABG PCO2 57 mmHg (35-45); ABG PH 7.22 (7.35-7.45)
[2019-10-24 08:14] LABS: ABG HCO3 23 mmol/L (22-26); ABG PO2 68 mmHg (80-105); ABG TCO2 25
--- NOTE | 2019-10-24 08:24 | Diagnostic Imaging Report ---
EXAM: CHEST SINGLE (PORTABLE) DATE: 10/24/2019 5:00 AM INDICATION: ARDS COMPARISON: 10/22/2019 FINDINGS: Tracheostomy cannula identified in stable position. Again identified are airspace opacities throughout the lungs bilaterally, similar to the prior examination. There is no evidence for pneumothorax or significant bony pleural effusion. The cardiomediastinal silhouette is partially obscured but appears grossly stable in appearance. No acute osseous abnormality is identified. IMPRESSION: No significant interval change from 10/22/2019. Signed by: Dr. Noel Paez MD on 10/24/2019 8:20 AM
[2019-10-24] MEDS ORDERED: SODIUM CHLORIDE 0.9% 500ML 500 ML IV ONE (09:00)
[2019-10-24] MEDS: SERTRALINE HCL 50 MG TAB PO SCH (09:21)
[2019-10-24] MEDS: CLONAZEPAM 0.5 MG TAB PO SCH ×3 (09:21→21:40)
[2019-10-24] MEDS: FAMOTIDINE 20 MG/2 ML VIAL IV SCH ×2 (09:21→17:20)
[2019-10-24] MEDS: ARIPIPRAZOLE 5 MG TABLET PO SCH (09:21)
[2019-10-24] MEDS: BALSAM PERU/CASTOR OIL 60 GM OINT...G. TP SCH (09:21)
[2019-10-24] MEDS: INSULIN REGULAR, HUMAN 100 UNIT/1 ML 3ML VIAL SQ SCH ×4 (09:22→21:00)
--- NOTE | 2019-10-24 09:37 | Diagnostic Imaging Report ---
EXAM: US PELVIS COMPLETE NON OB DATE: 10/24/2019 8:38 AM INDICATION: Abnormal CT COMPARISON: CT abdomen/pelvis from 10/23/2019 FINDINGS: Transabdominal images were obtained of the pelvis. Please note the examination is limited secondary to body habitus and decompressed urinary bladder. The uterus measures 9.4 x 4.0 x 4.3 cm. No focal uterine lesion is identified sonographically to correlate with a hyperdense focus noted within the uterine fundus on the recent prior CT examination. The endometrial stripe is not well visualized transabdominally. The ovaries are not visualized transabdominally which may be secondary to their small size and overlying bowel gas. No abnormal adnexal masses are identified. IMPRESSION: Limited transabdominal pelvic ultrasound examination demonstrates no focal abnormality within the uterus. Nonvisualization of the ovaries which may be secondary to their small size/overlying bowel gas. Signed by: Dr. Noel Paez MD on 10/24/2019 9:33 AM
[2019-10-24] MEDS: DEXMEDETOMIDINE 200MCG/NS 50ML 50 ML IV PRN ×2 (15:56→15:57)
[2019-10-24] MEDS ORDERED: NOREPINEPHRINE 8 MG/D5W 250 ML 250 ML IV PRN (16:15)
[2019-10-24] MEDS: ENOXAPARIN SOD INJ 40 MG/0.4 ML SYR SC SCH (17:20)
[2019-10-24] MEDS: VASOPRESSIN 60 UNIT in DEXTROSE 5% 50ML 57 ML IV SCH (18:16)
[2019-10-24] MEDS: FLUCONAZOLE 200 MG/100 ML 100 ML IV SCH (18:16)
--- NOTE | 2019-10-24 19:00 | NUR ---
Bedside Report Received. Patient in bed with HOB elevated at 30 degrees. PUPILS 2mm and Sluggish. Patient noted on Vent Fio2 80% PEEP8 24RR 380TV. Patient noted on Cooling [place] with a Temperature of 98.7 WITH A SET point OF 75F* Patient noted ON Precedex at 1 mcg/kg/hr Vasopressin at 0.07 units/min and Fentanyl at 75 mcg.on Levophed at 22mcg/min Vital at 20cc via PEG TUBE. Palm draining clear yellow urine by Mcnabb. Safety Maintained.
[2019-10-24] MEDS: FENTANYL 2000MCG/NS 250 250 ML IV PRN (23:54)
[2019-10-25] VITALS (24 sets, daily range): BP systolic 48–122; BP diastolic 28–85
[2019-10-25] MEDS: DEXMEDETOMIDINE 200MCG/NS 50ML 50 ML IV PRN ×3 (01:24→23:18)
[2019-10-25] MEDS: VANCOMYCIN 1GM/NS 250 ML 250 ML IV SCH (01:57)
[2019-10-25] MEDS: NOREPINEPHRINE INJ 4MG/4ML 16 MG in DEXTROSE 5% 250ML 250 ML IV SCH ×2 (02:02→20:30)
[2019-10-25 04:51] LABS: BASOPHILS # (AUTO) 0.1 (0.0-0.1); BASOPHILS % 0.2 % (0.0-1.0); EOSINOPHILS # (AUTO) 0.1 (0.0-0.4); EOSINOPHILS % 0.2 % (0.0-6.0); LYMPHOCYTES # (AUTO) 1.2 (1.0-3.2); LYMPHOCYTES % 3.6 % (18.0-39.1); MEAN CORPUSCULAR HEMOGLOBIN 26.9 pg (28-32); MEAN CORPUSCULAR HGB CONC 28.6 g/dL (31-35); MEAN CORPUSCULAR VOLUME 94.3 fL (81-99); MONOCYTES # (AUTO) 3.1 (0.2-0.8); MONOCYTES % 9.3 % (4.4-11.3); NEUTROPHILS # (AUTO) 26.3 (2.1-6.9); PLATELET COUNT 194 x10e3/uL (140-360); RED BLOOD COUNT 2.97 x10e6/uL (3.6-5.1); RED CELL DISTRIBUTION WIDTH 18.5 % (11.7-14.4)
[2019-10-25] MEDS: MEROPENEM 1GM 100 ML IV SCH ×3 (05:25→22:29)
[2019-10-25 05:26] LABS: ANION GAP 22.1 mmol/L (8-16); CALCIUM 8.9 mg/dL (8.4-10.2); CREATININE, SERUM 1.15 mg/dL (0.57-1.11)
[2019-10-25 05:40] LABS: POTASSIUM 6.1 mmol/L (3.5-5.1)
[2019-10-25 05:55] LABS: ALBUMIN 3.3 g/dL (3.5-5.0); ALKALINE PHOSPHATASE 184 IU/L (40-150); BILIRUBIN,DIRECT 1.2 mg/dL (0.0-0.5)
--- NOTE | 2019-10-25 07:15 | NUR ---
Report given to RN. SEBASTIAN curran. Order received from DR MATTHEW for POTASSIUM 6.1 10 units of REGULAR INSULIN IV D50x2 CALCIUM GLUCONATE 1gm.
[2019-10-25 07:28] LABS: ALANINE AMINOTRANSFERASE > 4113 IU/L (0-55)
[2019-10-25] MEDS: INSULIN REGULAR, HUMAN 100 UNIT/1 ML 3ML VIAL SQ SCH ×3 (07:30→18:34)
[2019-10-25] MEDS ORDERED: INSULIN REGULAR, HUMAN 100 UNIT/1 ML 3ML VIAL IV ONE (07:45)
[2019-10-25] MEDS ORDERED: CALCIUM GLUCONATE 10% INJ 4.65 MEQ in SODIUM CHLORIDE 0.9% 50ML 50 ML IV ONE (07:45)
[2019-10-25] MEDS ORDERED: DEXTROSE 50% SYRINGE 50 ML IV ONE (07:45)
[2019-10-25] MEDS: CLONAZEPAM 0.5 MG TAB PO SCH ×3 (08:35→14:48)
[2019-10-25] MEDS: ARIPIPRAZOLE 5 MG TABLET PO SCH (08:35)
[2019-10-25] MEDS: FAMOTIDINE 20 MG/2 ML VIAL IV SCH ×2 (08:35→18:33)
[2019-10-25] MEDS: BALSAM PERU/CASTOR OIL 60 GM OINT...G. TP SCH (08:35)
[2019-10-25] MEDS: SERTRALINE HCL 50 MG TAB PO SCH (08:35)
--- NOTE | 2019-10-25 09:02 | Diagnostic Imaging Report ---
EXAMINATION: CHEST SINGLE (PORTABLE) INDICATION: ARDS COMPARISON: Chest radiograph of 10/24/2019 FINDINGS: LINES/TUBES:Tracheostomy tube unchanged. EKG leads overlie the chest. LUNGS:The lung volumes remain low. Unchanged bilateral airspace opacities. PLEURA:No pleural effusion or pneumothorax. MEDIASTINUM:The cardiomediastinal silhouette appears normal in size and shape. BONES/SOFT TISSUES:No acute osseous injury. ABDOMEN:No free air under the diaphragm. IMPRESSION: No significant interval change. Signed by: Shashi Norris MD on 10/25/2019 8:59 AM
[2019-10-25 09:28] LABS: ANISOCYTOSIS SLIGHT; HYPOCHROMASIA SLIGHT; LYMPHOCYTES % (MANUAL) 3 % (19-48); MONOCYTES % (MANUAL) 9 % (3.4-9.0); MYELOCYTES % (MANUAL) 3 % (0-0); NEUTROPHILS % (MANUAL) 85 % (40-74); NUCLEATED RED BLOOD CELLS 6; PLATELET ESTIMATE ADEQUATE
[2019-10-25 09:29] LABS: PLATELET MORPHOLOGY COMMENT FEW LARGE; POLYCHROMASIA FEW; RBC MORPHOLOGY COMMENT ABNORMAL
--- NOTE | 2019-10-25 09:39 | Progress Note ---
DATE: SUBJECTIVE: Ms. Dick remains on ventilator, intubated, sedated. Temperature 99.1, heart rate 109, respiration on the ventilator. LABORATORY DATA: Reviewed. White count went up to 25.1, hemoglobin 8.6. Sodium 136, potassium 5.1 with a creatinine of 1.04. CAT scan of abdomen and pelvis, no evidence of an abscess. Diffuse consolidation in the lung base. PHYSICAL EXAMINATION: GENERAL: She is noncommunicative. VITAL SIGNS: Stable, afebrile. HEENT: Normocephalic. NECK: Supple. CHEST: Crackles. HEART: S1 and S2. ABDOMEN: Soft. Bowel sounds present. EXTREMITIES: No edema. SKIN: No rash. IMPRESSION: Respiratory failure, bacteremia, line infection, present on admission. She is currently on vancomycin and meropenem. Recheck CBC. Recheck chem panel. Check blood cultures. She grew Pseudomonas from the sputum. Catheter tip showed MRSA Enterococcus. We will recheck CBC, recheck chem panel, blood cultures. Start on Diflucan for fungal infection. History of cancer, history of anoxic encephalopathy. Prognosis is poor. MD CARLOS Braswell/MAREK /[id number]
[2019-10-25] MEDS ORDERED: SOD POLYSTYRENE SULFONATE SUSP 15 GM/60 ML BTL PO ONE ×2 (09:45→16:15)
[2019-10-25] MEDS ORDERED: LACTULOSE SYRUP 20 GM/30 ML UDC PO ONE ×2 (09:45→16:15)
[2019-10-25] MEDS: PHENYLEPHRINE 10MG/ML VIAL 40 MG in DEXTROSE 5% 250ML 250 ML IV SCH (11:00)
--- NOTE | 2019-10-25 14:50 | NUR ---
Tube feeding on hold after shift stacker reported high residuals. PEG tube placed on LIS and 500cc of fluid pulled from stomach. Pt remained NPO except 100cc with AM medication. RN checked residuals again at 1430 and pt had >300cc removed. RN held oral medications and pt remains NPO at this time. RN will discuss findings with .
[2019-10-25] MEDS ORDERED: MINERAL OIL 132 ML BTL PR ONE (16:15)
[2019-10-25] MEDS ORDERED: FUROSEMIDE INJ 10 MG/ML 2 ML VIAL IV ONE (16:15)
--- NOTE | 2019-10-25 16:16 | NUR ---
discussed with family
--- NOTE | 2019-10-25 17:05 | NUR ---
Nutrition Intervention Note RD Recommendation(s) for Physician: -Recommend to resume Vital AF 1.2 when appropriate and increase goal rate to 50 mL/hr (provides 1440 kcal, 90 g protein) -Water/fluid management per MD Plan of Care: RD following, monitoring for tolerance and adequacy, tube feed recommendation Nutrition reason for involvement: follow up RD Assessment 10/24: Follow up. Chart reviewed. Pt remains on the ventilator and is sedated. Per nursing note, pts tube feeding has been on hold at this time due to high residuals. 550 mL residuals were recorded yesterday. Recommend increasing resuming TF medically appropriate. Will continue to monitor (10/22/19) Pt is a 49 year old female admitted with septic shock and pneumonia. Pt is from a LTAC facility. Pt is mechanically ventilated and has a tracheostomy. Unable to obtain nutrition history from pt. There are no previous weights in chart. Pt is receiving Vital AF 1.2 @ 30 mL/hr through PEG tube. Recommendations provided. RD to manage TF order per Dr. Melvin. Will continue to monitor. Principal Problems/Diagnoses: septic shock and pneumonia. PMH: Chronic respiratory failure, Chronic neurological impairment, Recent Staph aureus pneumonia. GI: last recorded BM 10/20, round abdomen Skin: intact Labs: 10/24: Na 134, K 5.5, BUN 49, Cr 1.15, Glu 141, Total Bili1.8, Direct Bili 1.2, AST > 4202, ALT > 4113 (10/21) Na 138, K 4.6, BUN 23, Cr 1.09, Glu 182 Meds: insulin, pepcid, antibiotic, norepinephrine, fentanyl, vasopressin, Ht: 64 inches Wt: 185 lbs (10/23) 160 lbs (10/19) Suspect possible weight error BMI: 27.5 kg/m2 using wt of 160 lbs IBW: 120 lbs Malnutrition Evaluation (10/22/19) The patient does not meet criteria for a specified degree of malnutrition at this time. Will re-evaluate at follow-up as appropriate. Nutrition Prescription (Diet Order): Vital AF 1.2 @ 20 mL/hr Estimated Nutritional Needs: 2499-5508 calories/day (18-20 kcal/kg CBW) 87-145 g protein/day (1.2-2g pro/kg CBW) Diet Adequacy: Not meeting calorie needs, Not meeting protein needs Tolerance: tube feeding is off Diet Education Needs Assessment: Diet education not indicated, patient is mechanically ventilated Nutrition Care Level: moderate Nutrition Diagnosis: Inadequate oral intake related to trach/mechanical ventilation as evidenced by pt requiring enteral nutrition. Goal: Patient will meet 75-100% of estimated needs by follow up Progress: goal not met Interventions: - Composition, Rate, Route, Recommended Modifications Monitoring/Evaluation: -Total energy intake, Total protein intake, Formula/Solution, Weight change Signed: Devi Nelson RD, LD
--- NOTE | 2019-10-25 17:20 | Diagnostic Imaging Report ---
EXAM: 2 view of the abdomen. COMPARISON: CT of the abdomen on 10/23/2019. INDICATION: Obstipation. FINDINGS: Lines/tubes: There is a Palm catheter projecting over the pelvis. Right femoral central venous catheter. Bowel: Nonobstructive bowel gas pattern. There is contrast material within the entire colon. Abnormal calcification: None. Pneumoperitoneum: None. Bones: Multilevel degenerative disease of the spine. Soft tissues: Within normal limits. Others: The partially imaged lower lungs demonstrate multifocal patchy airspace opacities. IMPRESSION: 1. Nonobstructive bowel gas pattern with contrast material throughout the entire colon. 2. Multifocal patchy airspace opacities in the partially imaged lower lungs. Signed by: Lucho Archibald MD on 10/25/2019 5:17 PM
--- NOTE | 2019-10-25 18:12 | Progress Note ---
DATE: SUBJECTIVE: Today again, I talked with the family. The patient is really not doing well at all. She is getting progressively worse. She is on multiple vasopressors. She is intubated and sedated. Her potassium was elevated earlier. She is showing sign of ischemic changes in both toes and fingers. The patient is noncommunicative. The patient was currently on meropenem and we had stopped the vancomycin because her potassium was elevated. The patient is currently intubated and sedated, on vasopressors, on the ventilator. Discussed with medical team. PHYSICAL EXAMINATION: HEENT: She is not icteric. NECK: Supple. CHEST: Clear. HEART: S1, S2. ABDOMEN: Soft. Bowel sounds present. EXTREMITIES: No edema, but there are signs of ischemic changes as mentioned above. IMPRESSION: Sepsis with septic shock, multiorgan failure. Continue meropenem. Continue fluconazole. Her white count is getting progressively worse. Discussed with family, her daughter, she is aware of her grim prognosis. We will follow. MD CARLOS Braswell/MODL /[id number]
[2019-10-25] MEDS: METOCLOPRAMIDE HCL 10 MG/2ML VIAL IV SCH (18:33)
[2019-10-25] MEDS: ENOXAPARIN SOD INJ 40 MG/0.4 ML SYR SC SCH (18:33)
[2019-10-25] MEDS: FLUCONAZOLE 200 MG/100 ML 100 ML IV SCH (18:33)
--- NOTE | 2019-10-25 22:15 | NUR ---
Dr. Hickey updated on current pt condition. O2 sats remain 88-90% with FiO2 at 100%. Notified MD of current VS, BP, and UO and drips. MD ordered to increase sedation and increase PEEP to 10. RT notified of changes per MD.
[2019-10-25] MEDS: ACETAMINOPHEN 325 MG TAB PO PRN (22:29)
[2019-10-25] MEDS: FENTANYL 2000MCG/NS 250 250 ML IV PRN (23:30)
[2019-10-26] VITALS (26 sets, daily range): BP systolic 88–128; BP diastolic 54–76
[2019-10-26] MEDS: METOCLOPRAMIDE HCL 10 MG/2ML VIAL IV SCH ×4 (00:17→17:05)
[2019-10-26] MEDS: VASOPRESSIN 60 UNIT in DEXTROSE 5% 50ML 57 ML IV SCH ×2 (01:35→01:48)
[2019-10-26] MEDS: DEXMEDETOMIDINE 200MCG/NS 50ML 50 ML IV PRN ×4 (01:45→20:14)
[2019-10-26] MEDS: NOREPINEPHRINE INJ 4MG/4ML 16 MG in DEXTROSE 5% 250ML 250 ML IV SCH (05:00)
[2019-10-26 05:49] LABS: BASOPHILS # (AUTO) 0.1 (0.0-0.1); BASOPHILS % 0.2 % (0.0-1.0); EOSINOPHILS # (AUTO) 0.2 (0.0-0.4); EOSINOPHILS % 0.4 % (0.0-6.0); HEMATOCRIT 26.1 % (34.2-44.1); HEMOGLOBIN 7.6 g/dL (12.0-16.0); LYMPHOCYTES # (AUTO) 1.5 (1.0-3.2); LYMPHOCYTES % 3.9 % (18.0-39.1); MEAN CORPUSCULAR HGB CONC 29.1 g/dL (31-35); MEAN CORPUSCULAR VOLUME 96.3 fL (81-99); MONOCYTES # (AUTO) 2.9 (0.2-0.8); MONOCYTES % 7.7 % (4.4-11.3); NEUTROPHILS # (AUTO) 28.6 (2.1-6.9); NEUTROPHILS % 75.3 % (38.7-80.0); PLATELET COUNT 171 x10e3/uL (140-360); RED BLOOD COUNT 2.71 x10e6/uL (3.6-5.1); RED CELL DISTRIBUTION WIDTH 18.9 % (11.7-14.4)
[2019-10-26] MEDS: INSULIN REGULAR, HUMAN 100 UNIT/1 ML 3ML VIAL SQ SCH ×4 (06:00→17:06)
[2019-10-26 06:02] LABS: ANION GAP 18.9 mmol/L (8-16); CALCIUM 8.8 mg/dL (8.4-10.2); CREATININE, SERUM 1.16 mg/dL (0.57-1.11); POTASSIUM 5.9 mmol/L (3.5-5.1)
[2019-10-26] MEDS: MEROPENEM 1GM 100 ML IV SCH ×2 (06:20→14:42)
[2019-10-26 06:34] LABS: BAND NEUTROPHILS % (MANUAL) 6 %; EOSINOPHILS % (MANUAL) 1 % (0-7); LYMPHOCYTES % (MANUAL) 4 % (19-48); METAMYELOCYTES % (MANUAL) 4 % (0-0); MONOCYTES % (MANUAL) 5 % (3.4-9.0); MYELOCYTES % (MANUAL) 2 % (0-0); NEUTROPHILS % (MANUAL) 78 % (40-74); NUCLEATED RED BLOOD CELLS 11
[2019-10-26 06:35] LABS: ANISOCYTOSIS SLIGHT; HYPOCHROMASIA SLIGHT; MICROCYTOSIS SLIGHT; PLATELET ESTIMATE ADEQUATE; PLATELET MORPHOLOGY COMMENT NORMAL; POLYCHROMASIA FEW; RBC MORPHOLOGY COMMENT NORMAL
[2019-10-26] MEDS: ARIPIPRAZOLE 5 MG TABLET PO SCH (09:27)
[2019-10-26] MEDS: BALSAM PERU/CASTOR OIL 60 GM OINT...G. TP SCH (09:27)
[2019-10-26] MEDS: FAMOTIDINE 20 MG/2 ML VIAL IV SCH ×2 (09:27→17:05)
[2019-10-26] MEDS: SERTRALINE HCL 50 MG TAB PO SCH (09:27)
[2019-10-26] MEDS ORDERED: LACTULOSE SYRUP 20 GM/30 ML UDC PO PRN (09:45)
[2019-10-26] MEDS ORDERED: LACTULOSE SYRUP 20 GM/30 ML UDC PO ONE ×2 (10:00→10:30)
--- NOTE | 2019-10-26 10:14 | Diagnostic Imaging Report ---
EXAMINATION: CHEST SINGLE (PORTABLE) INDICATION: ARDS COMPARISON: Chest radiograph 10/25/2019 FINDINGS: LINES/TUBES:Tracheostomy unchanged. EKG leads overlie the chest. LUNGS:The lung volumes remain low. Unchanged bilateral interstitial and airspace opacities. PLEURA:Likely small bilateral pleural effusions. No pneumothorax. MEDIASTINUM:The cardiomediastinal silhouette appears unchanged in size and shape. BONES/SOFT TISSUES:No acute osseous injury. ABDOMEN:No free air under the diaphragm. IMPRESSION: Unchanged bilateral interstitial and airspace opacities. Likely small bilateral pleural effusions. No pneumothorax. Signed by: Shashi Norris MD on 10/26/2019 10:11 AM
[2019-10-26] MEDS ORDERED: SOD POLYSTYRENE SULFONATE SUSP 15 GM/60 ML BTL PR ONE ×2 (10:15→10:30)
[2019-10-26] MEDS ORDERED: SODIUM BICARBONATE 8.4% INJ 50 ML SYR IV ONE (10:15)
[2019-10-26] MEDS ORDERED: SOD POLYSTYRENE SULFONATE SUSP 15 GM/60 ML BTL PO ONE (10:15)
[2019-10-26] MEDS ORDERED: DEXTROSE 50% SYRINGE 50 ML IV ONE (10:30)
[2019-10-26] MEDS ORDERED: INSULIN REGULAR, HUMAN 100 UNIT/1 ML 3ML VIAL IV ONE (10:30)
[2019-10-26] MEDS: PHENYLEPHRINE 10MG/ML VIAL 40 MG in DEXTROSE 5% 250ML 250 ML IV SCH (11:00)
[2019-10-26] MEDS ORDERED: ALBUMIN 5% 250ML 500 ML IV ONE (11:15)
[2019-10-26] MEDS ORDERED: BUMETANIDE INJ 0.25MG/ML 4ML VIAL IV ONE (11:20)
--- NOTE | 2019-10-26 12:00 | Consultation ---
DATE OF CONSULTATION: 10/26/2019 HISTORY OF PRESENT ILLNESS: A 49-year-old female with significant past medical history of lung cancer, colon cancer, anoxic brain injury, prior sepsis, multiorgan failure with anoxic brain injury at [facility], tracheostomy and PEG tube placement, presented with severe sepsis, septic shock. Renal has been consulted for refractory hyperkalemia as well as acute kidney injury, decreased urine output. History predominantly from notes and also I spoke to Francheska, the patient's daughter. The patient is completely unresponsive, comatose, intubated on Levophed 30 mcg. She is currently lying supine, in no apparent distress. Has evidence of cyanosis involving both hands, symmetric acrocyanosis predominantly as well as acrocyanosis of bilateral feet with mostly livedo reticular pattern, cyanotic toes and cyanotic fingertips. LABORATORY DATA: Show sodium 135, potassium 5.9, bicarbonate 17, BUN 55, creatinine 1.16, blood sugar 165 with anion gap of 19 and a blood gas 7.2, 257, 68 and 23. CBC shows white count 37,000, hemoglobin 7.6 with a platelet count of 171. Has had blood cultures done, shows Enterococcus species, Staphylococcus Simulans. Catheter tip shows Staphylococcus aureus. Sputum culture positive Pseudomonas aeruginosa. Chest x-ray by my exam shows evidence of ARDS. ALLERGIES: NO APPARENT DRUG ALLERGIES. CURRENT MEDICATIONS: The patient is on meropenem 1 g IV q.8. I have discussed with ID. He is going to adjust the dose. Vancomycin has been held. She is on Levophed as mentioned, Tylenol p.r.n. Abilify has been stopped. Clonazepam has been stopped. She is on enoxaparin subcutaneous. She is on Levophed 30 mcg/kg/minute. SOCIAL HISTORY: Lives at [facility]. Has a daughter, who makes decisions for her. PAST MEDICAL HISTORY: As above. Here, she underwent CT abdomen and pelvis with IV contrast. Her last vancomycin level was 47.8. Vancomycin has been held. Urinalysis initials 1.020 pH with 0-5 rbc, 21-50 wbc, dipstick positive proteins. PHYSICAL EXAMINATION: GENERAL: The patient unresponsive. HEENT: Pupils dilated, fixed. Tracheostomy noted. LUNGS: Harsh vesicular breath sounds. Air entry good bilaterally. No rales. HEART: S1 and S2 audible. Tachycardic rhythm. ABDOMEN: Soft, slightly distended. Flanks full, nontender. No masses. EXTREMITIES: Lower extremity, no edema. Acrocyanosis as mentioned above. IMPRESSION: Acute tubular necrosis, multifactorial, sepsis, multiorgan failure, septic shock, Pseudomonas pneumonia, bacteremia, lines changed, overall critically ill, extremely poor prognosis. PLAN: Diuretic trial, stress resuscitate volume, IV albumin. Start IV bicarbonate, Bumex drip, Kayexalate, lactulose, dextrose insulin, treatment of hyperkalemia. If refractory, may need dialysis. Discussed with daughter. The patient is an extremely poor candidate for dialysis, which I have explained to daughter. She is going to think about it. I will speak to the nurse to see if we can allow her to come and visit her mother. Overall, multiple comorbidities and extremely poor prognosis. Discussed with primary care, Dr. Marcial and Dr. Gregorio. MD YOLIS Sam/MODL /[id number]
[2019-10-26 12:02] LABS: ABG PCO2 78 mmHg (35-45); ABG PH 7.11 (7.35-7.45); ABG PO2 121 mmHg (80-105)
[2019-10-26 12:03] LABS: ABG HCO3 25 mmol/L (22-26); ABG TCO2 27
[2019-10-26] MEDS: BUMETANIDE 10 MG in SODIUM CHLORIDE 0.9% 100 ML 60 ML IV SCH ×2 (12:23→22:44)
[2019-10-26] MEDS: SODIUM BICARBONATE 8.4% SYRING 150 ML in DEXTROSE 5% 1,000 ML IV SCH ×2 (13:59→22:44)
[2019-10-26] MEDS: FENTANYL 2000MCG/NS 250 250 ML IV PRN (14:42)
[2019-10-26 16:04] LABS: CALCIUM 8.1 mg/dL (8.4-10.2); CREATININE, SERUM 1.08 mg/dL (0.57-1.11)
[2019-10-26] MEDS: ENOXAPARIN SOD INJ 40 MG/0.4 ML SYR SC SCH (17:05)
[2019-10-26 17:21] LABS: ABG HCO3 25 mmol/L (22-26); ABG PCO2 63 mmHg (35-45); ABG PH 7.21 (7.35-7.45); ABG PO2 92 mmHg (80-105); ABG TCO2 27
--- NOTE | 2019-10-26 18:37 | Progress Note ---
DATE: SUBJECTIVE: Ms. Dick remains intubated and sedated with acute kidney injury today. Discussed with Dr. Junior. The patient's condition is progressing, deteriorating. There are ischemic changes noted in her toes, I think this is progressing. The patient with septic shock. She is currently on Levophed at 30 mcg. LABORATORY DATA: Reviewed. Her sodium is 135, potassium 5.9, creatinine of 1.16. White count 37,000. PHYSICAL EXAMINATION: GENERAL: She is intubated and sedated. VITAL SIGNS: Stable. Currently afebrile. HEENT: She is not icteric. NECK: Supple. CHEST: Crackles. HEART: S1, S2. ABDOMEN: Soft. Her blood cultures on October 23 came back negative. Her white count is 37,000, which is worse today. Hemoglobin is 7.6. Sodium 41, potassium 4.0 with creatinine 1.08. IMPRESSION: 1. Sepsis, septic shock progressing getting worse, not responsive to treatment. 2. Acute kidney injury. We have to assume that she is having ischemic gut, also ischemic liver injury cannot probably explain her fever. She did have bacteremias with Staphylococcus simulans, line infection and MRSA all that seems to be doing okay at the present time. Her blood cultures are negative. I am concerned that her white count is progressing. It could be either ischemic or again and/or some point infection acute kidney injury. I am going to discontinue meropenem. We will change to daptomycin and cefepime. Reassess. Prognosis remains extremely poor. Family aware. We will follow. MD CARLOS Braswell/MODAlfredo /[id number]
[2019-10-26] MEDS: DAPTOMYCIN IV SCH (18:42)
[2019-10-26] MEDS: SODIUM CHLORIDE 0.9% IV SCH (18:42)
[2019-10-26 21:58] LABS: ANION GAP 13.9 mmol/L (8-16); CALCIUM 8.6 mg/dL (8.4-10.2); CREATININE, SERUM 1.05 mg/dL (0.57-1.11)
[2019-10-26 22:00] LABS: POTASSIUM 2.9 mmol/L (3.5-5.1)
[2019-10-26] MEDS: ACETAMINOPHEN 325 MG TAB PO PRN (22:19)
[2019-10-26] MEDS: POTASSIUM CHLORIDE 20MEQ/100ML 200 ML IV SCH (22:44)
--- NOTE | 2019-10-26 23:53 | NUR ---
Patient's core temperature at 102.2 F, after PRN Tylenol administration. Cooling blanket and ice pack initiated.
[2019-10-27] VITALS (25 sets, daily range): BP systolic 85–116; BP diastolic 52–67
[2019-10-27] MEDS: METOCLOPRAMIDE HCL 10 MG/2ML VIAL IV SCH ×4 (00:23→16:26)
[2019-10-27] MEDS: POTASSIUM CHLORIDE 20MEQ/100ML 200 ML IV SCH (00:27)
[2019-10-27 04:43] LABS: BASOPHILS # (AUTO) 0.1 (0.0-0.1); BASOPHILS % 0.5 % (0.0-1.0); EOSINOPHILS # (AUTO) 0.2 (0.0-0.4); EOSINOPHILS % 1.2 % (0.0-6.0); HEMATOCRIT 24.8 % (34.2-44.1); HEMOGLOBIN 7.3 g/dL (12.0-16.0); LYMPHOCYTES # (AUTO) 0.6 (1.0-3.2); LYMPHOCYTES % 4.6 % (18.0-39.1); MEAN CORPUSCULAR HGB CONC 29.4 g/dL (31-35); MEAN CORPUSCULAR VOLUME 91.9 fL (81-99); MONOCYTES % 7.5 % (4.4-11.3); NEUTROPHILS % 78.6 % (38.7-80.0); PLATELET COUNT 121 x10e3/uL (140-360); RED CELL DISTRIBUTION WIDTH 18.7 % (11.7-14.4)
[2019-10-27 05:05] LABS: ANION GAP 21.7 mmol/L (8-16); BLOOD UREA NITROGEN 40 mg/dL (7-26); BUN/CREATININE RATIO 47 (6-25); CALCIUM 8.4 mg/dL (8.4-10.2); CARBON DIOXIDE 29 mmol/L (22-29); CHLORIDE 99 mmol/L (98-107); CREATININE, SERUM 0.85 mg/dL (0.57-1.11); EST GLOMERULAR FILTRATION RATE > 60 ML/MIN (60-); GLUCOSE 193 mg/dL (74-118); SODIUM 147 mmol/L (136-145)
[2019-10-27 05:07] LABS: POTASSIUM 2.7 mmol/L (3.5-5.1)
[2019-10-27] MEDS: INSULIN REGULAR, HUMAN 100 UNIT/1 ML 3ML VIAL SQ SCH ×4 (05:52→17:22)
[2019-10-27] MEDS: POTASSIUM CHLORIDE 20MEQ/100ML 400 ML IV SCH ×4 (05:58→10:45)
--- NOTE | 2019-10-27 07:36 | Diagnostic Imaging Report ---
EXAMINATION: CHEST SINGLE (PORTABLE) INDICATION: ARDS. COMPARISON: Multiple prior chest radiographs including most recent on 10/25/2019. FINDINGS: TUBES and LINES: Tracheostomy which terminates approximately 5 cm above the jessica is unchanged. LUNGS: No interval change in multifocal interstitial and airspace opacities throughout both lungs. PLEURA: Probable small bilateral pleural effusion. No pneumothorax. HEART AND MEDIASTINUM: The cardiomediastinal silhouette is unchanged. BONES AND SOFT TISSUES: No acute osseous lesion. Soft tissues are unchanged. UPPER ABDOMEN: No free air under the diaphragm. IMPRESSION: 1. No significant interval change in multifocal airspace and interstitial opacities compatible with multifocal pneumonia with superimposed ARDS. 2. Probable small bilateral pleural effusion. Signed by: Lucho Archibald MD on 10/27/2019 7:33 AM
[2019-10-27] MEDS: FAMOTIDINE 20 MG/2 ML VIAL IV SCH ×2 (09:00→16:03)
[2019-10-27] MEDS: SERTRALINE HCL 50 MG TAB PO SCH (09:00)
[2019-10-27] MEDS: BALSAM PERU/CASTOR OIL 60 GM OINT...G. TP SCH (09:00)
[2019-10-27] MEDS: BUMETANIDE 10 MG in SODIUM CHLORIDE 0.9% 100 ML 60 ML IV SCH ×2 (09:00→16:03)
[2019-10-27] MEDS: PHENYLEPHRINE 10MG/ML VIAL 40 MG in DEXTROSE 5% 250ML 250 ML IV SCH (11:00)
[2019-10-27 11:44] LABS: ANION GAP 18.2 mmol/L (8-16); BLOOD UREA NITROGEN 34 mg/dL (7-26); BUN/CREATININE RATIO 43 (6-25); CALCIUM 8.3 mg/dL (8.4-10.2); CARBON DIOXIDE 37 mmol/L (22-29); CHLORIDE 96 mmol/L (98-107); EST GLOMERULAR FILTRATION RATE > 60 ML/MIN (60-); GLUCOSE 174 mg/dL (74-118); POTASSIUM 3.2 mmol/L (3.5-5.1); SODIUM 148 mmol/L (136-145)
[2019-10-27] MEDS: SODIUM BICARBONATE 8.4% SYRING 150 ML in DEXTROSE 5% 1,000 ML IV SCH (11:48)
--- NOTE | 2019-10-27 13:26 | Progress Note ---
DATE: 10/27/2019 CHIEF COMPLAINT/HISTORY OF PRESENT ILLNESS: This is a 49-year-old woman, whose primary treating diagnosis is Sepsis and inagf-vb-mosokni respiratory failure. The patient has bilateral Pseudomonasaeruginosa pneumonia as well as Enterococcus faecalis bacteremia. The patient is improving clinically with intravenous daptomycin for Enterococcus faecalis bacteremia and with meropenem in regard to pseudomonal pneumonia. The patient's BUN and creatinine today 34 and 0.8, respectively. The patient's potassium is 3.2, but she is on intravenous Bumex drip. The patient's white blood cell count today is 12,700 with 78% segmenters. The patient is on intravenous norepinephrine for blood pressure support. She is producing adequate amount of urine. Chest film performed today revealed multifocal airspace interstitial opacities consistent with multifocal pneumonia. REVIEW OF SYSTEMS: As per HPI. PHYSICAL EXAMINATION: GENERAL: She is somnolent. The patient is minimally arousable, but she does not follow directions. VITAL SIGNS: Height 5 feet 4 inches. Weight 180 pounds, BMI 33. Blood pressure is 90/55 (the patient is on norepinephrine), pulse 86, respiratory rate is 22, temperature 99.7, and oxygen saturation 98%. She is on a ventilator with FiO2 of 75%, she is on AC mode. INTEGUMENT: Skin is warm and dry. She does have numerous tattoos. HEENT: Anicteric sclerae. Moist mucous membranes. NECK: Supple. She has a tracheostomy tube in place, which is connected to ventilator. CARDIOVASCULAR: Tachycardic rate, regular rhythm. The patient has crackles in bilateral lung roldan. ABDOMEN: Soft. She has a PEG tube in place (high residuals, thus it is not being used). EXTREMITIES: No edema or deformity. NEUROLOGIC: No gross focal deficits appreciated, but she is minimally responsive to stimuli. DIAGNOSES: 1. Sepsis secondary to Enterococcus faecalis bacteremia. 2. Sepsis secondary to Pseudomonas aeruginosa pneumonia. 3. Wvfzm-lc-otqcwsz respiratory failure. 4. Acute renal insufficiency secondary to acute tubular necrosis, resolving. 5. Hypokalemia secondary to intravenous loop diuretics namely Bumex. 6. Anemia secondary to chronic disease. PLAN: 1. Continue intravenous daptomycin for the patient's Enterococcus faecalis bacteremia. 2. Continue intravenous meropenem for the patient's Pseudomonas aeruginosa pneumonia. 3. Continue intravenous vasopressin, namely norepinephrine. 4. Follow renal function. 5. Replete potassium level. 6. Follow renal function and electrolytes. 7. Poor overall prognosis. I spent 35 minutes in the care of this intensive care unit patient. MD SERVANDO Rios/MAREK /[id number] MTDGer
[2019-10-27] MEDS: MEROPENEM 500MG/ NS 50ML 50 ML IV SCH ×2 (13:29→21:45)
[2019-10-27] MEDS ORDERED: POTASSIUM CHLORIDE 20MEQ/100ML 200 ML IV ONE (13:30)
[2019-10-27 15:19] LABS: ABG PCO2 65 mmHg (35-45); ABG PH 7.48 (7.35-7.45)
[2019-10-27 15:20] LABS: ABG HCO3 48 mmol/L (22-26); ABG PO2 75 mmHg (80-105); ABG TCO2 50
--- NOTE | 2019-10-27 15:37 | Progress Note ---
DATE: 10/27/2019 SUBJECTIVE: With tracheostomy. On pressors, on IV antibiotics, good output with bumetanide. OBJECTIVE: VITAL SIGNS: Temperature is 99.7, blood pressure is 90/55, pulse 87, on pressors on and off. CHEST: Occasional rhonchi. NEURO: Sedate. SKIN: Showing early gangrenous changes/discoloration in the digits. EXTREMITIES: Remain cool. NEURO: Appears obtunded. LABORATORY DATA: White count 12,000, hemoglobin 7.3, and platelets are 121,000. K is up to 3.2, sodium 148, creatinine 0.8, and BUN 34. ASSESSMENT AND PLAN: 1. Fluid overload. 2. Hypophosphatemia. 3. Hypokalemia. 4. Good response to bumetanide. 5. Cut down the Bumex drip to 0.5 mg an hour. Potassium replacement has already been ordered, I believe. 6. Recheck labs. 7. Replace phosphorus. MD JENNIFER Ocasio/MODL /[id number]
[2019-10-27] MEDS: VASOPRESSIN 60 UNIT in DEXTROSE 5% 50ML 57 ML IV SCH (16:03)
[2019-10-27] MEDS: ENOXAPARIN SOD INJ 40 MG/0.4 ML SYR SC SCH (16:03)
[2019-10-27] MEDS ORDERED: POTASSIUM PHOSPHATE 20 MM in SODIUM CHLORIDE 0.9% 250ML 250 ML IV SCH (16:30)
--- NOTE | 2019-10-27 16:42 | Progress Note ---
DATE: SUBJECTIVE: Ms. Dick remains in intensive care unit, intubated and sedated. OBJECTIVE: VITAL SIGNS: Stable. HEENT: Normocephalic. NECK: Supple. CHEST: Few rhonchi. HEART: S1 and S2. ABDOMEN: Soft. Bowel sounds present. EXTREMITIES: There is sign of early ischemia. LABORATORY DATA: The patient's white count did go down to 12.7 and hemoglobin 7.3. Her sodium 138 and potassium 3.2. IMPRESSION: Sepsis septic shock, respiratory failure, pneumonia, healthcare-associated pneumonia, bacteremia, and line infection, present on admission. The patient with acute kidney injury, Pseudomonas aeruginosa pneumonia, coagulase-negative Staph bacteremia, line-related. Sepsis and septic shock, slowly getting better. She is currently on meropenem and daptomycin. Continue supportive care. Continue with antibiotic as ordered for the time being, probably do 15 days of meropenem and 10 days of daptomycin. MD CARLOS Braswell/MODL /[id number]
[2019-10-27 17:44] LABS: ANION GAP 17.1 mmol/L (8-16); BLOOD UREA NITROGEN 30 mg/dL (7-26); BUN/CREATININE RATIO 41 (6-25); CALCIUM 8.2 mg/dL (8.4-10.2); CHLORIDE 93 mmol/L (98-107); CREATININE, SERUM 0.74 mg/dL (0.57-1.11); EST GLOMERULAR FILTRATION RATE > 60 ML/MIN (60-); GLUCOSE 136 mg/dL (74-118); POTASSIUM 3.1 mmol/L (3.5-5.1); SODIUM 148 mmol/L (136-145)
[2019-10-27 17:48] LABS: CARBON DIOXIDE 41 mmol/L (22-29)
[2019-10-27] MEDS: NOREPINEPHRINE INJ 4MG/4ML 16 MG in DEXTROSE 5% 250ML 250 ML IV SCH (18:30)
--- NOTE | 2019-10-27 18:45 | NUR ---
Critical CO2 reported to MD Renner. Jenniffer Hendricks. MD Renner stated that he would readdress in morning after repeat labs.
[2019-10-27] MEDS: DEXMEDETOMIDINE 200MCG/NS 50ML 50 ML IV PRN (20:19)
[2019-10-27] MEDS: DAPTOMYCIN IV SCH (21:03)
[2019-10-27] MEDS: SODIUM CHLORIDE 0.9% IV SCH (21:03)
[2019-10-27] MEDS ORDERED: MAGNESIUM SULFATE 2GM/50ML 50 ML IV ONE ×2 (22:00→23:15)
[2019-10-27] MEDS: FENTANYL 2000MCG/NS 250 250 ML IV PRN (22:44)
[2019-10-28] VITALS (25 sets, daily range): BP systolic 80–119; BP diastolic 46–67
[2019-10-28] MEDS: METOCLOPRAMIDE HCL 10 MG/2ML VIAL IV SCH ×5 (00:01→23:51)
[2019-10-28] MEDS: INSULIN REGULAR, HUMAN 100 UNIT/1 ML 3ML VIAL SQ SCH ×5 (00:14→23:52)
[2019-10-28] MEDS: ACETAMINOPHEN 325 MG TAB PO PRN ×3 (02:31→21:54)
[2019-10-28] MEDS: MEROPENEM 500MG/ NS 50ML 50 ML IV SCH ×3 (05:13→21:53)
[2019-10-28 05:39] LABS: BASOPHILS % 0.4 % (0.0-1.0); EOSINOPHILS # (AUTO) 0.1 (0.0-0.4); EOSINOPHILS % 0.6 % (0.0-6.0); HEMATOCRIT 27.1 % (34.2-44.1); HEMOGLOBIN 7.9 g/dL (12.0-16.0); LYMPHOCYTES # (AUTO) 0.8 (1.0-3.2); LYMPHOCYTES % 8.6 % (18.0-39.1); MEAN CORPUSCULAR HEMOGLOBIN 26.8 pg (28-32); MEAN CORPUSCULAR HGB CONC 29.2 g/dL (31-35); MEAN CORPUSCULAR VOLUME 91.9 fL (81-99); MONOCYTES # (AUTO) 1.1 (0.2-0.8); MONOCYTES % 11.4 % (4.4-11.3); NEUTROPHILS # (AUTO) 6.9 (2.1-6.9); NEUTROPHILS % 72.9 % (38.7-80.0); PLATELET COUNT 115 x10e3/uL (140-360); RED BLOOD COUNT 2.95 x10e6/uL (3.6-5.1)
[2019-10-28 06:54] LABS: ALANINE AMINOTRANSFERASE 1870 IU/L (0-55); ALBUMIN 2.8 g/dL (3.5-5.0); ALBUMIN/GLOBULIN RATIO 0.8 (0.8-2.0); ALKALINE PHOSPHATASE 204 IU/L (40-150); ANION GAP 16.5 mmol/L (8-16); BLOOD UREA NITROGEN 30 mg/dL (7-26); BUN/CREATININE RATIO 38 (6-25); CHLORIDE 90 mmol/L (98-107); CREATININE, SERUM 0.79 mg/dL (0.57-1.11); EST GLOMERULAR FILTRATION RATE > 60 ML/MIN (60-); GLUCOSE 149 mg/dL (74-118); SODIUM 151 mmol/L (136-145)
[2019-10-28 07:00] LABS: POTASSIUM 2.5 mmol/L (3.5-5.1)
[2019-10-28 07:01] LABS: CARBON DIOXIDE 47 mmol/L (22-29)
[2019-10-28 07:31] LABS: ABG HCO3 56 mmol/L (22-26); ABG PCO2 65 mmHg (35-45); ABG PH 7.54 (7.35-7.45); ABG PO2 79 mmHg (80-105); ABG TCO2 50
[2019-10-28] MEDS: SERTRALINE HCL 50 MG TAB PO SCH (08:26)
[2019-10-28] MEDS: FAMOTIDINE 20 MG/2 ML VIAL IV SCH ×2 (08:26→18:02)
[2019-10-28] MEDS ORDERED: POTASSIUM CHLORIDE 20MEQ/100ML 200 ML IV ONE ×4 (08:30→16:00)
[2019-10-28 08:36] LABS: BAND NEUTROPHILS % (MANUAL) 1 %; LYMPHOCYTES % (MANUAL) 6 % (19-48); MONOCYTES % (MANUAL) 6 % (3.4-9.0); MYELOCYTES % (MANUAL) 1 % (0-0); NEUTROPHILS % (MANUAL) 86 % (40-74); NUCLEATED RED BLOOD CELLS 9
[2019-10-28 08:38] LABS: HYPOCHROMASIA SLIGHT
[2019-10-28 08:39] LABS: ANISOCYTOSIS MODERATE; PLATELET ESTIMATE SLIGHTLY DECREASED; PLATELET MORPHOLOGY COMMENT FEW LARGE; POLYCHROMASIA FEW; RBC MORPHOLOGY COMMENT ABNORMAL
[2019-10-28] MEDS ORDERED: ACETAZOLAMIDE SODIUM 500 MG/VIAL IV ONE (10:00)
[2019-10-28] MEDS: BALSAM PERU/CASTOR OIL 60 GM OINT...G. TP SCH (11:00)
[2019-10-28] MEDS: MIDODRINE 2.5 MG TAB PO SCH ×2 (11:53→16:26)
[2019-10-28 12:18] LABS: ABG PH 7.49 (7.35-7.45)
[2019-10-28 12:19] LABS: ABG HCO3 54 mmol/L (22-26); ABG PCO2 71 mmHg (35-45); ABG PO2 65 mmHg (80-105); ABG TCO2 50
--- NOTE | 2019-10-28 12:35 | Progress Note ---
DATE: 10.28.19 SUBJECTIVE: Off Bumex drip, still with good output. Some swelling. Sodium has been rising, presumably on account of free water losses from the recovering kidney. Creatinine is 0.8. LABORATORY DATA: K is 2.5. Serum CO2 is quite elevated. We have stopped her bicarb drip, which was started originally because she was acidotic. Part of CO2 elevation is from the loop diuretic. PHYSICAL EXAMINATION: GENERAL: Lying in ICU bed. VITAL SIGNS: Temperature is 100.6, pulse 92, blood pressure 99/64. CHEST: Rhonchi. EXTREMITIES: Edema. SKIN: Cool with early gangrenous changes on the extremities. LABORATORY DATA: A pH 7.54, serum CO2 is 47, K is 2.5, calcium is 8, phosphorus 2.3, Mag is 2.0. ASSESSMENT: 1. Acute kidney injury, improved. 2. ATN. 3. Fluid overload with good diuresis. 4. Consequent alkalosis, which is multifactorial. 5. Severe hypokalemia from loop diuretic and potentially any urinary losses due to recovery in GFR. PLAN: 1. One dose of Diamox. Aggressive potassium replacement. Increase free water to 200 mL q.4 hours. 2. Hold the loop diuretic. 3. A.m. chemistries. 4. Add midodrine 10 mg t.i.d. MD DORIS OcasioK/JOHANNYL /[id number] MTDD
[2019-10-28 15:08] LABS: ANION GAP 11.1 mmol/L (8-16); BLOOD UREA NITROGEN 30 mg/dL (7-26); BUN/CREATININE RATIO 36 (6-25); CHLORIDE 92 mmol/L (98-107); CREATININE, SERUM 0.83 mg/dL (0.57-1.11); EST GLOMERULAR FILTRATION RATE > 60 ML/MIN (60-); GLUCOSE 116 mg/dL (74-118); SODIUM 149 mmol/L (136-145)
[2019-10-28 15:21] LABS: CARBON DIOXIDE 49 mmol/L (22-29); POTASSIUM 3.1 mmol/L (3.5-5.1)
--- NOTE | 2019-10-28 15:59 | NUR ---
progress note the patient seen and examined's chart reviewed discussed with medical team patient seems to be a little better today his is a 49-year-old woman, whose primary treating diagnosis is septic shock secondary to Enterococcus faecalis bacteremia and Pseudomonas aeruginosa pneumonia. The patient's sputum culture revealed Pseudomonas aeruginosa and blood culture revealed Enterococcus faecalis bacteremia. The patient also experiencing acute on chronic respiratory failure, is on ventilator. The patient has persistently hypokalemia because she is on intravenous loop diuretic namely Bumex. Potassium this morning was 2.5. Magnesium this morning was 2.0. 0.79 respectively. White blood cell count today is 9500 with 86% segmented neutrophils and 1% bands. Hemoglobin 7.9 g/dL. Chest film performed yesterday on October 27, 2019, revealed multifocal airspace and interstitial opacities compatible with multifocal pneumonia. REVIEW OF SYSTEMS:could not be obtained As per HPI. PHYSICAL EXAMINATION: patient is in intensive care unit intubated and sedated GENERAL: She is on a ventilator via tracheostomy tube. She is minimally responsive. The patient does not follow commands. VITAL SIGNS: Height is 5 feet 4 inches, weight is 108 pounds, and BMI 33. Blood pressure currently is 90/60, heart rate 120, oxygen saturation is 100% on FiO2 65% via ventilator connected to a tracheostomy tube. Temperature 100.6, highest temperature over the last 24 hours is 100.9 at 4 o'clock this morning. Respiratory rate is 24. INTEGUMENT: Skin is warm and dry. The patient has numerous tattoos. The patient has minimal skin breakdown in the sacral area, but no decubitus ulcer is appreciated. HEENT: Anicteric sclerae. Moist mucous membranes. NECK: Supple with a tracheostomy tube in place connected to the ventilator. CARDIOVASCULAR: Tachycardia rate with regular rhythm. LUNGS: The patient has crackles in the bilateral lung roldan. ABDOMEN: Soft. She has a PEG tube in place. EXTREMITIES: No edema or deformity. NEUROLOGIC: No gross focal deficits appreciated, but the patient is minimally responsive to stimuli. DIAGNOSES: sepsis and septic shock Respiratory failure Concern about fungal infection Pneumonia PLAN: 1continue with supportive care as ordered continue with the current dose of IV antibiotics he seems to be getting better We will follow
[2019-10-28] MEDS: NOREPINEPHRINE INJ 4MG/4ML 16 MG in DEXTROSE 5% 250ML 250 ML IV SCH (18:30)
[2019-10-28] MEDS: SODIUM CHLORIDE 0.9% IV SCH (20:20)
[2019-10-28] MEDS: DAPTOMYCIN IV SCH (20:20)
[2019-10-28] MEDS ORDERED: POTASSIUM CHLORIDE 20MEQ/100ML 200 ML ONE (20:35)
[2019-10-28] MEDS: DEXMEDETOMIDINE 200MCG/NS 50ML 50 ML IV PRN (21:54)
--- NOTE | 2019-10-28 23:46 | Progress Note ---
DATE: 10/28/2019 CHIEF COMPLAINT/HISTORY OF PRESENT ILLNESS: This is a 49-year-old woman, whose primary treating diagnosis is septic shock secondary to Enterococcus faecalis bacteremia and Pseudomonas aeruginosa pneumonia. The patient's sputum culture revealed Pseudomonas aeruginosa and blood culture revealed Enterococcus faecalis bacteremia. The patient also experiencing acute on chronic respiratory failure, is on ventilator. The patient has persistently hypokalemia because she is on intravenous loop diuretic namely Bumex. Potassium this morning was 2.5. Magnesium this morning was 2.0. The patient's sodium is 151. The patient's BUN and creatinine 13 and 0.79 respectively. White blood cell count today is 9500 with 86% segmented neutrophils and 1% bands. Hemoglobin 7.9 g/dL. Chest film performed yesterday on October 27, 2019, revealed multifocal airspace and interstitial opacities compatible with multifocal pneumonia. REVIEW OF SYSTEMS: As per HPI. PHYSICAL EXAMINATION: GENERAL: She is on a ventilator via tracheostomy tube. She is minimally responsive. The patient does not follow commands. VITAL SIGNS: Height is 5 feet 4 inches, weight is 180 pounds, and BMI 33. Blood pressure currently is 90/60, heart rate 120, oxygen saturation is 100% on FiO2 65% via ventilator connected to a tracheostomy tube. Temperature 100.6, highest temperature over the last 24 hours is 100.9 at 4 o'clock this morning. Respiratory rate is 24. INTEGUMENT: Skin is warm and dry. The patient has numerous tattoos. The patient has minimal skin breakdown in the sacral area, but no decubitus ulcer is appreciated. HEENT: Anicteric sclerae. Moist mucous membranes. NECK: Supple with a tracheostomy tube in place connected to the ventilator. CARDIOVASCULAR: Tachycardia rate with regular rhythm. LUNGS: The patient has crackles in the bilateral lung roldan. ABDOMEN: Soft. She has a PEG tube in place. EXTREMITIES: No edema or deformity. NEUROLOGIC: No gross focal deficits appreciated, but the patient is minimally responsive to stimuli. DIAGNOSES: 1. Septic shock secondary to Enterococcus faecalis bacteremia. 2. Septic shock secondary to Pseudomonas aeruginosa pneumonia. 3. Mrljq-bw-abcnags respiratory failure. 4. Acute renal insufficiency secondary to acute tubular necrosis, resolved. 5. Hypokalemia secondary to intravenous loop diuretics namely Bumex. 6. Anemia secondary to chronic disease. PLAN: 1. I discussed the patient's poor prognosis with Dr. Raúl Marcial, the [employer], who stated that the patient is actually improving clinically. 2. Continue intravenous antibiotics for the patient's Enterococcus faecalis bacteremia and Pseudomonas aeruginosa pneumonia. 3. Replete potassium level. 4. We will follow electrolytes and renal function. 5. Continue vasopressin in the form of norepinephrine. 6. Poor overall prognosis. I spent 35 minutes in the care of this patient. MD SERVANDO Rios/MAREK /[id number] MTDD
[2019-10-29] VITALS (25 sets, daily range): BP systolic 83–124; BP diastolic 54–88
[2019-10-29 05:44] LABS: BASOPHILS # (AUTO) 0.1 (0.0-0.1); BASOPHILS % 0.4 % (0.0-1.0); EOSINOPHILS # (AUTO) 0.4 (0.0-0.4); EOSINOPHILS % 2.6 % (0.0-6.0); HEMATOCRIT 30.2 % (34.2-44.1); HEMOGLOBIN 8.5 g/dL (12.0-16.0); LYMPHOCYTES # (AUTO) 1.8 (1.0-3.2); LYMPHOCYTES % 11.5 % (18.0-39.1); MEAN CORPUSCULAR HEMOGLOBIN 26.8 pg (28-32); MEAN CORPUSCULAR HGB CONC 28.1 g/dL (31-35); MEAN CORPUSCULAR VOLUME 95.3 fL (81-99); MONOCYTES # (AUTO) 1.2 (0.2-0.8); NEUTROPHILS # (AUTO) 11.2 (2.1-6.9); PLATELET COUNT 171 x10e3/uL (140-360); RED BLOOD COUNT 3.17 x10e6/uL (3.6-5.1); RED CELL DISTRIBUTION WIDTH 20.1 % (11.7-14.4)
[2019-10-29 05:49] LABS: INR 1.3; PROTHROMBIN TIME 16.8 seconds (11.9-14.5)
[2019-10-29] MEDS: METOCLOPRAMIDE HCL 10 MG/2ML VIAL IV SCH ×4 (05:51→23:31)
[2019-10-29] MEDS: MEROPENEM 500MG/ NS 50ML 50 ML IV SCH ×3 (05:51→22:55)
[2019-10-29] MEDS: INSULIN REGULAR, HUMAN 100 UNIT/1 ML 3ML VIAL SQ SCH ×3 (06:00→17:41)
[2019-10-29 06:03] LABS: ALANINE AMINOTRANSFERASE 1303 IU/L (0-55); ALBUMIN 2.7 g/dL (3.5-5.0); ALBUMIN/GLOBULIN RATIO 0.7 (0.8-2.0); ALKALINE PHOSPHATASE 194 IU/L (40-150); ANION GAP 12.3 mmol/L (8-16); BLOOD UREA NITROGEN 28 mg/dL (7-26); BUN/CREATININE RATIO 35 (6-25); CHLORIDE 94 mmol/L (98-107); CREATININE, SERUM 0.81 mg/dL (0.57-1.11); EST GLOMERULAR FILTRATION RATE > 60 ML/MIN (60-); GLUCOSE 98 mg/dL (74-118); POTASSIUM 3.3 mmol/L (3.5-5.1); SODIUM 150 mmol/L (136-145)
[2019-10-29 06:09] LABS: CARBON DIOXIDE 47 mmol/L (22-29)
[2019-10-29 06:18] LABS: MAGNESIUM 1.5 MG/DL (1.3-2.1); PHOSPHORUS 2.1 MG/DL (2.3-4.7)
[2019-10-29] MEDS ORDERED: POTASSIUM CHLORIDE 20MEQ/100ML 200 ML IV ONE (07:15)
--- NOTE | 2019-10-29 07:48 | Diagnostic Imaging Report ---
EXAMINATION: CHEST SINGLE (PORTABLE) INDICATION: ARDS. COMPARISON: Chest x-ray 10/27/2019, 10/26/2019 FINDINGS: TUBES and LINES: Tracheostomy which terminates approximately 5 cm above the jessica. The tracheostomy tube is obliquely oriented, and tents the left lateral trachea. The tracheostomy balloon significantly distended the trachea. LUNGS: No interval change in multifocal interstitial and airspace opacities throughout both lungs. PLEURA: Probable small bilateral pleural effusion. No pneumothorax. HEART AND MEDIASTINUM: The cardiomediastinal silhouette is unchanged. BONES AND SOFT TISSUES: No acute osseous lesion. Soft tissues are unchanged. UPPER ABDOMEN: No free air under the diaphragm. IMPRESSION: 1. The tracheostomy tube is obliquely oriented, and tents the left lateral trachea, and may exert pressure on the left lateral wall of the trachea, consider repositioning. Also the tracheostomy balloon significantly distended trachea. 2. No significant interval change in multifocal airspace and interstitial opacities compatible with multifocal pneumonia with superimposed ARDS. 3. Probable small bilateral pleural effusion. Signed by: Kev Gomez DO on 10/29/2019 7:45 AM
[2019-10-29] MEDS: MIDODRINE 2.5 MG TAB PO SCH ×3 (08:17→16:08)
[2019-10-29] MEDS: FAMOTIDINE 20 MG/2 ML VIAL IV SCH ×2 (08:17→16:08)
[2019-10-29] MEDS: BALSAM PERU/CASTOR OIL 60 GM OINT...G. TP SCH (08:18)
[2019-10-29] MEDS: SERTRALINE HCL 50 MG TAB PO SCH (08:18)
[2019-10-29] MEDS ORDERED: POTASSIUM PHOSPHATE 20 MM in SODIUM CHLORIDE 0.9% 250ML 250 ML IV ONE (09:00)
[2019-10-29] MEDS ORDERED: ACETAZOLAMIDE SODIUM 500 MG/VIAL IV ONE (09:00)
[2019-10-29 11:31] LABS: BAND NEUTROPHILS % (MANUAL) 5 %; EOSINOPHILS % (MANUAL) 1 % (0-7); LYMPHOCYTES % (MANUAL) 3 % (19-48); MONOCYTES % (MANUAL) 4 % (3.4-9.0); NEUTROPHILS % (MANUAL) 87 % (40-74); NUCLEATED RED BLOOD CELLS 4
[2019-10-29 11:33] LABS: ANISOCYTOSIS MODERATE; PLATELET ESTIMATE ADEQUATE; PLATELET MORPHOLOGY COMMENT FEW LARGE; POLYCHROMASIA FEW; RBC MORPHOLOGY COMMENT ABNORMAL
--- NOTE | 2019-10-29 12:29 | Progress Note ---
DATE: SUBJECTIVE: Blood pressure is somewhat better. Remains on the ventilator. Tracheostomy in place. Still having fevers. OBJECTIVE: VITAL SIGNS: Temperature 100, pulse 110, blood pressure 102/68. CHEST: Scattered rhonchi. EXTREMITIES: Edema plus discoloration in the digits. NEUROLOGIC: Sedated. ABDOMEN: Appears soft. LABORATORY DATA: Sputum showing Pseudomonas. Blood culture showing Staph aureus on the catheter tip as well as enterococcus in the blood. Urine output is 2.4 L. White count is 15,000, increased since yesterday, hemoglobin 8.5, platelets are 171,000. Sodium 150, potassium 3.3, serum CO2 is a little better at 47, creatinine 0.8, BUN 81. Magnesium is 1.5, phosphorus is low at 2.1. ASSESSMENT: 1. Hypophosphatemia. 2. Hypernatremia. 3. Hyperkalemia. 4. Alkalosis. hypernatremia from the loop diuretics, most likely had some ATN with recovery during which time often electrolyte and free water losses can be quite heavy coming down. PLAN: 1. Increase free water to 300cc q4 so close _ 2 L of free water a day. 2. One more dose of potassium phosphate IV. 3. Add Diamox 250 mg b.i.d. for the time being. 4. Serial labs. 5. Replace electrolytes on an ongoing basis. 6. Overall prognosis appears to be poor. MD JENNIFER Ocasio/MAREK /[id number] DEE
[2019-10-29] MEDS ORDERED: LEVALBUTEROL HCL SOLN NEBU 0.63 MG/3 ML NEB INH PRN (15:30)
[2019-10-29 16:44] LABS: ALBUMIN 2.7 g/dL (3.5-5.0); BILIRUBIN,DIRECT 1.6 mg/dL (0.0-0.5)
[2019-10-29] MEDS ORDERED: DEXMEDETOMIDINE 200MCG/NS 50ML 50 ML IV PRN (16:45)
[2019-10-29] MEDS: FLUCONAZOLE 200 MG/100 ML 100 ML IV SCH (16:55)
[2019-10-29] MEDS: FENTANYL 2000MCG/NS 250 250 ML IV PRN (17:41)
[2019-10-29] MEDS: NOREPINEPHRINE INJ 4MG/4ML 16 MG in DEXTROSE 5% 250ML 250 ML IV SCH (18:30)
[2019-10-29] MEDS: LINEZOLID 600 MG/D5W 300ML 300 ML IV SCH (18:31)
--- NOTE | 2019-10-29 19:00 | NUR ---
Bedside Report Received. Patient in bed with HOB elevated at 30 degrees. PUPILS 2mm and Sluggish. Patient noted on Vent Fio2 65% PEEP10 20RR 380 TV. Upper and Lower Extremities noted with Frostbite-like symptoms. Patient noted ON Precedex at 0.2 mcg/kg/hr and Fentanyl at 50 mcg.on Levophed at 2mcg/min Vital at 30cc via PEG TUBE. RECTAL TUBE noted. Palm noted draining clear yellow urine by gravity. VITAL SIGNS stable. Safety Maintained Will continue to MONITOR.
--- NOTE | 2019-10-29 19:37 | Progress Note ---
DATE: SUBJECTIVE: Ms. Dick remains in intensive care unit. She seems a bit better respiratory pink. Also, we are trying to wean down her vasopressors. She remains noncommunicative however. PHYSICAL EXAMINATION: VITAL SIGNS: Stable. Her temperature 100.2, heart rate 83, respiration of 19, blood pressure HEENT: Normocephalic. NECK: Supple. CHEST: Few rhonchi. HEART: S1, S2. ABDOMEN: Soft. EXTREMITIES: No edema. SKIN: No rash. LABORATORY DATA: Her repeat blood cultures, there is no growth. Her white count is 15.6 today, hemoglobin 8.5. IMPRESSION: Respiratory failure, fever today. The patient is currently on meropenem, daptomycin, as well as Diflucan. I am concerned about her low fever, high white count. Also, she has elevated liver enzyme. We will recheck liver enzyme. I am going to change her to Zyvox because of concern about pneumonia. The blood culture is negative. I will add Diflucan and recheck CBC and observe her temperature. MD CARLOS Braswell/MODL /[id number]
--- NOTE | 2019-10-29 22:00 | NUR ---
No acute changes noted. Will continue to monitor. Safety Maintained. PICC line placed by PICC TEAM On L ARM. VSS.
--- NOTE | 2019-10-29 22:53 | Diagnostic Imaging Report ---
EXAMINATION: CHEST XRAY LINE PLACEMENT INDICATION: PICC LINE PLACEMENT COMPARISON: Radiograph from today at 5:46 AM. FINDINGS: TUBES and LINES: The tip of a left PICC projects over the distal SVC. Unchanged tracheostomy tube. LUNGS: Multifocal bilateral interstitial and patchy airspace opacities are seen throughout both lungs, not significantly changed.. PLEURA: Small bilateral pleural effusions. HEART AND MEDIASTINUM: Not well delineated due to adjacent airspace disease. Surgical clips project over the left hilum. IMPRESSION: Left PICC tip projects over the distal SVC. No pneumothorax. Otherwise, unchanged bilateral lung disease with small pleural effusions. Signed by: Jus Razo MD on 10/29/2019 10:50 PM
[2019-10-30] VITALS (25 sets, daily range): BP systolic 77–126; BP diastolic 49–79
[2019-10-30] MEDS: INSULIN REGULAR, HUMAN 100 UNIT/1 ML 3ML VIAL SQ SCH ×4 (02:52→17:44)
[2019-10-30] MEDS: MEROPENEM 500MG/ NS 50ML 50 ML IV SCH ×3 (05:00→21:14)
[2019-10-30] MEDS: LINEZOLID 600 MG/D5W 300ML 300 ML IV SCH ×2 (05:00→17:31)
[2019-10-30] MEDS: METOCLOPRAMIDE HCL 10 MG/2ML VIAL IV SCH ×3 (05:00→17:31)
[2019-10-30 05:13] LABS: ANION GAP 13.9 mmol/L (8-16); BLOOD UREA NITROGEN 30 mg/dL (7-26); BUN/CREATININE RATIO 36 (6-25); CALCIUM 8.1 mg/dL (8.4-10.2); CHLORIDE 94 mmol/L (98-107); CREATININE, SERUM 0.83 mg/dL (0.57-1.11); EST GLOMERULAR FILTRATION RATE > 60 ML/MIN (60-); GLUCOSE 172 mg/dL (74-118); MAGNESIUM 1.4 MG/DL (1.3-2.1); POTASSIUM 3.9 mmol/L (3.5-5.1); SODIUM 145 mmol/L (136-145)
[2019-10-30 05:17] LABS: CARBON DIOXIDE 41 mmol/L (22-29)
[2019-10-30] MEDS: FAMOTIDINE 20 MG/2 ML VIAL IV SCH ×2 (08:18→16:29)
[2019-10-30] MEDS: MIDODRINE 2.5 MG TAB PO SCH ×3 (08:18→16:29)
[2019-10-30] MEDS: SERTRALINE HCL 50 MG TAB PO SCH (08:18)
--- NOTE | 2019-10-30 09:15 | Progress Note ---
DATE: 10/30/2019 SUBJECTIVE: Remains with good output. Still quite swollen. Tracheostomy in place. She is net positive. Part of that is free water because sodium was running high. Urine output was about 1050. OBJECTIVE: GENERAL: Appears sedated. Tracheostomy in place. VITAL SIGNS: Temperature 99.4, blood pressure 126/75. CHEST: Occasional rhonchi. EXTREMITIES: Edema + +. : With Palm. ASSESSMENT: 1. Acute kidney injury, better. 2. Fluid overload. 3. Health-care associated pneumonia. 4. Sepsis on pressors whose requirement is decreasing. 5. Chronic neurological impairment based on records. PLAN: From renal standpoint, given the Diamox. Her pCO2 is running a bit high that may cause further renal vasoconstriction, which she will need to watch for. She is already on a thiazide. Add low-dose metolazone. We will follow along. MD JENNIFER Ocasio/MAREK /[id number]
[2019-10-30 10:08] LABS: ABG HCO3 46 mmol/L (22-26); ABG PCO2 80 mmHg (35-45); ABG PH 7.36 (7.35-7.45); ABG PO2 49 mmHg (80-105); ABG TCO2 48
[2019-10-30 10:09] LABS: BASOPHILS # (AUTO) 0.1 (0.0-0.1); BASOPHILS % 0.3 % (0.0-1.0); EOSINOPHILS # (AUTO) 0.8 (0.0-0.4); EOSINOPHILS % 4.3 % (0.0-6.0); HEMATOCRIT 31.1 % (34.2-44.1); HEMOGLOBIN 8.4 g/dL (12.0-16.0); LYMPHOCYTES # (AUTO) 2.6 (1.0-3.2); LYMPHOCYTES % 14.8 % (18.0-39.1); MEAN CORPUSCULAR HEMOGLOBIN 26.8 pg (28-32); MEAN CORPUSCULAR VOLUME 99.4 fL (81-99); MONOCYTES # (AUTO) 1.6 (0.2-0.8); MONOCYTES % 9.2 % (4.4-11.3); NEUTROPHILS # (AUTO) 12.2 (2.1-6.9); NEUTROPHILS % 68.9 % (38.7-80.0); PLATELET COUNT 198 x10e3/uL (140-360); RED BLOOD COUNT 3.13 x10e6/uL (3.6-5.1); RED CELL DISTRIBUTION WIDTH 20.6 % (11.7-14.4)
[2019-10-30 10:33] LABS: ANION GAP 14.2 mmol/L (8-16); BLOOD UREA NITROGEN 29 mg/dL (7-26); BUN/CREATININE RATIO 36 (6-25); CALCIUM 8.2 mg/dL (8.4-10.2); CHLORIDE 94 mmol/L (98-107); CREATININE, SERUM 0.81 mg/dL (0.57-1.11); EST GLOMERULAR FILTRATION RATE > 60 ML/MIN (60-); GLUCOSE 146 mg/dL (74-118); POTASSIUM 4.2 mmol/L (3.5-5.1); SODIUM 146 mmol/L (136-145)
[2019-10-30 10:40] LABS: CARBON DIOXIDE 42 mmol/L (22-29)
[2019-10-30] MEDS: CLONAZEPAM 0.5 MG TAB PO SCH ×2 (10:41→20:05)
[2019-10-30] MEDS ORDERED: ACETAZOLAMIDE SODIUM 500 MG/VIAL IV ONE (11:15)
--- NOTE | 2019-10-30 13:06 | Diagnostic Imaging Report ---
TECHNIQUE: Frontal view of the chest. INDICATION: ^resp failure ^[id number] ^1240 ^Y COMPARISON: Prior day. DISCUSSION: Limited evaluation due to portable technique. Lines and hardware: Stable left PICC. Stable tracheostomy tube with tip ending at the upper trachea at the level of the left*clavicular joint. Multiple overlying EKG leads are again noted. Heart and mediastinum: Cardiomediastinal silhouette and hilar contours are secured by a [place] airspace disease. Lungs and pleura: Left greater than right diffuse interstitial and patchy airspace opacities are noted. Negative for large pneumothorax. Small pleural effusions are noted. Soft tissues and bones: No acute abnormality. IMPRESSION: 1. Stable exam compared to 10/29/2019 demonstrating left greater than right multifocal interstitial and airspace opacities. Small pleural effusions are noted. 2. Unchanged appearance of the tracheostomy tube and left PICC. Signed by: Feliciano Baig MD on 10/30/2019 1:03 PM
--- NOTE | 2019-10-30 15:10 | NUR ---
Nutrition Intervention Note RD Recommendation(s) for Physician: -Recommend continue to advance TF of Vital AF to goal rate of 50 mL/hr (provides 1440 kcal, 90 g protein) -Water/fluid management per MD Plan of Care: RD following, monitoring for tolerance and adequacy, tube feed recommendation Nutrition reason for involvement: follow up RD Assessment 10/29: Follow up. Pt remains on vent via trach and sedated with Precedex. Pt currently on Levophed at 2 mcg/min. Pt currently tolerating TF via PEG at 30 ml/hr, recommend advancing as tolerated to goal rate. Pt discussed during MDR. Chart reviewed. Will continue to monitor. 10/24: Follow up. Chart reviewed. Pt remains on the ventilator and is sedated. Per nursing note, pts tube feeding has been on hold at this time due to high residuals. 550 mL residuals were recorded yesterday. Recommend increasing resuming TF medically appropriate. Will continue to monitor (10/22/19) Pt is a 49 year old female admitted with septic shock and pneumonia. Pt is from a LTAC facility. Pt is mechanically ventilated and has a tracheostomy. Unable to obtain nutrition history from pt. There are no previous weights in chart. Pt is receiving Vital AF 1.2 @ 30 mL/hr through PEG tube. Recommendations provided. RD to manage TF order per Dr. Melvin. Will continue to monitor. Principal Problems/Diagnoses: septic shock and pneumonia. PMH: Chronic respiratory failure, Chronic neurological impairment, Recent Staph aureus pneumonia. I/O: 3319/1968 GI: last BM 10/29- liquid stool Skin: sacrum breakdown Labs: 10/29: Na 146, K 4.2, BUN 29, Cr 0.81, Gluc 146 10/24: Na 134, K 5.5, BUN 49, Cr 1.15, Glu 141, Total Bili1.8, Direct Bili 1.2, AST > 4202, ALT > 4113 (10/21) Na 138, K 4.6, BUN 23, Cr 1.09, Glu 182 Meds: reglan, klonopin, zoloft, pepcid, pepcid, abx, insulin, seroquel, oxycontin, lactulose IVF/Drips: Levophed at 2 mcg/min, Fentanyl drip, Precedex drip Ht: 64 inches Wt: 191. lb () 185 lbs (10/23) 160 lbs (10/19) Suspect possible weight error BMI: 27.5 kg/m2 using wt of 160 lbs IBW: 120 lbs Malnutrition Evaluation (10/30/19) The patient does not meet criteria for a specified degree of malnutrition at this time. Will re-evaluate at follow-up as appropriate. Intake adequacy: TF not meeting needs x 5 days Wt loss: unable to evaluate Fat loss: none observed, ample skinfold thickness Muscle loss: none observed, shoulder round Edema: +1 generalized edema Functional status; unable to evaluate- intubated and sedated Nutrition Prescription (Diet Order): Vital AF 1.2 20 mL/hr, infusing at 30 ml/hr (864 kcal and 54 gm protein) Estimated Nutritional Needs: 3493-3354 calories/day (18-20 kcal/kg CBW) 87-145 g protein/day (1.2-2g pro/kg CBW) Diet Adequacy: Not meeting calorie needs, Not meeting protein needs Tolerance: tolerating TF at 30 ml/hr Diet Education Needs Assessment: Diet education not indicated, patient is mechanically ventilated Nutrition Care Level: moderate Nutrition Diagnosis: Inadequate oral intake related to trach/mechanical ventilation as evidenced by pt requiring enteral nutrition. Goal: Patient will meet 75-100% of estimated needs by follow up Progress: goal not met Interventions: - Composition, Rate, Route, Recommended Modifications Monitoring/Evaluation: -Total energy intake, Total protein intake, Formula/Solution, Weight change Signed: Gricel Sutton RD, LD, CNSC
[2019-10-30] MEDS: FLUCONAZOLE 200 MG/100 ML 100 ML IV SCH (16:29)
[2019-10-30] MEDS ORDERED: OXYCODONE HCL 10 MG TAB CR PO SCH (17:00)
[2019-10-30] MEDS ORDERED: QUETIAPINE FUMARATE 25 MG TAB PO SCH (17:00)
[2019-10-30 17:21] LABS: ABG HCO3 44 mmol/L (22-26); ABG PCO2 71 mmHg (35-45); ABG PO2 80 mmHg (80-105); ABG TCO2 46
[2019-10-30] MEDS: BALSAM PERU/CASTOR OIL 60 GM OINT...G. TP SCH (17:43)
[2019-10-30] MEDS: NOREPINEPHRINE INJ 4MG/4ML 16 MG in DEXTROSE 5% 250ML 250 ML IV SCH (18:30)
[2019-10-30] MEDS: OXYCODONE HCL 10 MG TAB CR PO SCH (20:05)
[2019-10-30] MEDS: QUETIAPINE FUMARATE 25 MG TAB PO SCH (20:05)
--- NOTE | 2019-10-30 23:36 | NUR ---
infectious disease progress note The patient remains in intensive care unit intubated noncommunicative her vitals are stable afebrile Her physical examination she is noncommunicative vitals stable HEENT normocephalic neck supple chest crackles heart and seems to show thoughts are present extremities no edema skin there is no rash Patient sepsis on admission Bacteremia on admission Pneumonia and on admission Concern about anoxic brain injury Rodney failure History of colon cancer history of lung cancer Acute on chronic kidney disease her WBC is worse today repeat blood culture still pending Continue antibiotic as ordered continue supportive care
[2019-10-31] VITALS (26 sets, daily range): BP systolic 79–100; BP diastolic 26–78
[2019-10-31] MEDS: INSULIN REGULAR, HUMAN 100 UNIT/1 ML 3ML VIAL SQ SCH ×4 (00:38→19:01)
[2019-10-31] MEDS: METOCLOPRAMIDE HCL 10 MG/2ML VIAL IV SCH ×4 (00:38→18:56)
[2019-10-31 05:47] LABS: BASOPHILS # (AUTO) 0.1 (0.0-0.1); BASOPHILS % 0.4 % (0.0-1.0); EOSINOPHILS # (AUTO) 1.3 (0.0-0.4); HEMATOCRIT 30.9 % (34.2-44.1); HEMOGLOBIN 8.4 g/dL (12.0-16.0); LYMPHOCYTES # (AUTO) 2.3 (1.0-3.2); LYMPHOCYTES % 13.8 % (18.0-39.1); MEAN CORPUSCULAR HEMOGLOBIN 27.5 pg (28-32); MEAN CORPUSCULAR HGB CONC 27.2 g/dL (31-35); MEAN CORPUSCULAR VOLUME 101.3 fL (81-99); MONOCYTES # (AUTO) 1.1 (0.2-0.8); MONOCYTES % 6.5 % (4.4-11.3); NEUTROPHILS # (AUTO) 11.5 (2.1-6.9); NEUTROPHILS % 68.8 % (38.7-80.0); PLATELET COUNT 183 x10e3/uL (140-360); RED BLOOD COUNT 3.05 x10e6/uL (3.6-5.1); RED CELL DISTRIBUTION WIDTH 20.3 % (11.7-14.4)
[2019-10-31 06:08] LABS: ANION GAP 11.7 mmol/L (8-16); BLOOD UREA NITROGEN 26 mg/dL (7-26); BUN/CREATININE RATIO 34 (6-25); CALCIUM 8.3 mg/dL (8.4-10.2); CHLORIDE 92 mmol/L (98-107); CREATININE, SERUM 0.76 mg/dL (0.57-1.11); EST GLOMERULAR FILTRATION RATE > 60 ML/MIN (60-); GLUCOSE 152 mg/dL (74-118); POTASSIUM 3.7 mmol/L (3.5-5.1); SODIUM 141 mmol/L (136-145)
[2019-10-31] MEDS: LINEZOLID 600 MG/D5W 300ML 300 ML IV SCH ×2 (06:28→18:56)
[2019-10-31] MEDS: MEROPENEM 500MG/ NS 50ML 50 ML IV SCH ×3 (06:28→22:01)
[2019-10-31 06:33] LABS: CARBON DIOXIDE 41 mmol/L (22-29)
--- NOTE | 2019-10-31 07:42 | Diagnostic Imaging Report ---
TECHNIQUE: Frontal view of the chest. INDICATION: 49-year-old woman with respiratory failure. COMPARISON: Chest radiograph 10/30/2019. FINDINGS: LINES/TUBES: Unchanged. LUNGS: No significant change in diffuse bilateral airspace opacities, left greater than right. PLEURA: Unchanged questionable small bilateral pleural effusions. No pneumothorax. HEART AND MEDIASTINUM: The cardiomediastinal silhouette is unchanged. SOFT TISSUES AND BONES: Unremarkable. IMPRESSION: No significant change since 10/30/2019. Signed by: Emilie Galloway MD on 10/31/2019 7:39 AM
[2019-10-31] MEDS: FAMOTIDINE 20 MG/2 ML VIAL IV SCH ×2 (08:35→16:09)
[2019-10-31] MEDS: MIDODRINE 2.5 MG TAB PO SCH ×3 (08:35→16:09)
[2019-10-31] MEDS: ACETAZOLAMIDE 250 MG TAB PO SCH ×2 (08:36→16:09)
[2019-10-31] MEDS: SERTRALINE HCL 50 MG TAB PO SCH (08:38)
[2019-10-31] MEDS: BALSAM PERU/CASTOR OIL 60 GM OINT...G. TP SCH (08:38)
[2019-10-31] MEDS: QUETIAPINE FUMARATE 25 MG TAB PO SCH ×3 (09:00→20:09)
[2019-10-31] MEDS: CLONAZEPAM 0.5 MG TAB PO SCH ×3 (09:00→20:08)
[2019-10-31] MEDS: OXYCODONE HCL 10 MG TAB CR PO SCH ×2 (09:00→20:09)
[2019-10-31 09:24] LABS: ABG HCO3 42 mmol/L (22-26); ABG PCO2 66 mmHg (35-45); ABG PH 7.42 (7.35-7.45); ABG PO2 99 mmHg (80-105); ABG TCO2 44
--- NOTE | 2019-10-31 11:32 | Progress Note ---
DATE: 10/31/2019 SUBJECTIVE: Remains on ventilator. Overall, swelling is improved. PCO2s were high. PHYSICAL EXAMINATION: GENERAL: She is awake. VITAL SIGNS: Temperature 97.6, pulse 74, blood pressure 87/56. CHEST: With rhonchi. EXTREMITIES: Trace to 1+ edema. NEURO: Awake. Occasionally moves hand. LABORATORY DATA: Last pCO2 was 71, creatinine 0.76, BUN 26 and serum CO2 is 41, pH was 7.40, anion gap is essentially in the normal range. ASSESSMENT: Acute kidney injury, improved. Fluid overload improving. Hypernatremia, better. PLAN: Continue free water and SERIAL chemistries. Limited Diamox. However, would also consider trying to blow off the pCO2 assuming respiratory mechanics will allow for this.( high p co2 can worsen fluid retention additionally ) Overall prognosis remains poor. This may certainly reasonable to consider palliative care. MD DORIS OcasioK/MODL /[id number] MTDD
[2019-10-31] MEDS ORDERED: OXYCODONE HCL 10 MG TAB CR PO PRN (13:45)
[2019-10-31] MEDS ORDERED: OXYCODONE HCL IR 5 MG TAB PO PRN (13:45)
[2019-10-31] MEDS ORDERED: SODIUM CHLORIDE 0.9% 250ML 250 ML ONE (14:04)
--- NOTE | 2019-10-31 15:00 | Progress Note ---
DATE: SUBJECTIVE: The patient has improved off sedation. More awake, alert, following all commands, completely oriented. OBJECTIVE: VITAL SIGNS: Temperature 97.6, pulse of 74, blood pressure 96/60, has been afebrile since 10/28. CHEST: Clear to auscultation bilaterally. HEART: S1 and S2 audible. ABDOMEN: Soft. The patient has a PEG tube. EXTREMITIES: Bilateral lower extremity edema and also has ischemia and cyanosis of the extremities due to vasopressors. ASSESSMENT/PLAN: Ms. Dick is a 49-year-old female with septic shock, which is resolving. The patient has markedly improved. I will continue the patient on current antibiotics. I will discontinue fentanyl. Precedex will be discontinued as well. We will reduce the dose of Klonopin and change oxycodone to p.r.n. The patient would benefit from LTAC. The patient is not weanable from the ventilator and she is vent-dependent. Currently on FiO2 of 60% and saturating well. MD ALLEY Betts/MODL /[id number]
[2019-10-31] MEDS: FLUCONAZOLE 200 MG/100 ML 100 ML IV SCH (16:09)
[2019-10-31] MEDS: NOREPINEPHRINE INJ 4MG/4ML 16 MG in DEXTROSE 5% 250ML 250 ML IV SCH (20:08)
--- NOTE | 2019-10-31 20:51 | Progress Note ---
DATE: SUBJECTIVE: Ms. Dick remains in intensive care unit, intubated. She seems to be a little more alert. Vitals also seem to be better. Remains on the ventilator. PHYSICAL EXAMINATION: GENERAL: She currently follows simple commands. VITAL SIGNS: Stable, afebrile. HEENT: She is not icteric. NECK: Supple. CHEST: Few crackles at the bases. HEART: S1, S2. ABDOMEN: Soft. Bowel sounds present. EXTREMITIES: No edema. SKIN: No rash. IMPRESSION: Sepsis on admission, line infection, present on admission pneumonia on admission. The patient is slowly getting better. Repeated blood cultures negative. Her white count is 16.63 with a hemoglobin of 8.4. She is currently on fluconazole, meropenem, and linezolid. To finish in 14 days. Continue supportive care. MD CARLOS Braswell/MAREK /[id number]
[2019-11-01] VITALS (24 sets, daily range): BP systolic 81–107; BP diastolic 49–82
[2019-11-01] MEDS: METOCLOPRAMIDE HCL 10 MG/2ML VIAL IV SCH ×5 (00:36→23:08)
[2019-11-01] MEDS: INSULIN REGULAR, HUMAN 100 UNIT/1 ML 3ML VIAL SQ SCH ×4 (00:37→17:41)
[2019-11-01] MEDS: MEROPENEM 500MG/ NS 50ML 50 ML IV SCH ×3 (05:10→21:01)
[2019-11-01] MEDS: LINEZOLID 600 MG/D5W 300ML 300 ML IV SCH ×2 (05:11→17:22)
[2019-11-01 05:16] LABS: ANION GAP 12.1 mmol/L (8-16); BLOOD UREA NITROGEN 23 mg/dL (7-26); BUN/CREATININE RATIO 30 (6-25); CALCIUM 8.1 mg/dL (8.4-10.2); CARBON DIOXIDE 38 mmol/L (22-29); CHLORIDE 95 mmol/L (98-107); CREATININE, SERUM 0.76 mg/dL (0.57-1.11); EST GLOMERULAR FILTRATION RATE > 60 ML/MIN (60-); GLUCOSE 142 mg/dL (74-118); MAGNESIUM 1.4 MG/DL (1.3-2.1); PHOSPHORUS 4.1 MG/DL (2.3-4.7); POTASSIUM 3.1 mmol/L (3.5-5.1); SODIUM 142 mmol/L (136-145)
[2019-11-01] MEDS: MIDODRINE 2.5 MG TAB PO SCH ×3 (07:40→15:25)
[2019-11-01] MEDS: OXYCODONE HCL 10 MG TAB CR PO SCH (08:54)
[2019-11-01] MEDS: SERTRALINE HCL 50 MG TAB PO SCH (08:54)
[2019-11-01] MEDS: BALSAM PERU/CASTOR OIL 60 GM OINT...G. TP SCH (08:54)
[2019-11-01] MEDS: QUETIAPINE FUMARATE 25 MG TAB PO SCH ×2 (08:54→21:01)
[2019-11-01] MEDS: CLONAZEPAM 0.5 MG TAB PO SCH (08:54)
[2019-11-01] MEDS: FAMOTIDINE 20 MG/2 ML VIAL IV SCH ×2 (08:54→17:22)
[2019-11-01] MEDS: ACETAZOLAMIDE 250 MG TAB PO SCH ×2 (08:54→17:22)
--- NOTE | 2019-11-01 11:10 | Progress Note ---
DATE: SUBJECTIVE: The patient is arousable. Still having occasional sleepy episode. Overall, breathing much better. White cell count is down to 16, hemoglobin is 8.4, that was yesterday's lab. Renal function is improving. PHYSICAL EXAMINATION: VITAL SIGNS: Temperature 97.9, pulse of 76, blood pressure 95/64, respiratory rate is 18, and O2 saturation 98%, 60%. HEENT: Head is atraumatic and normocephalic. Tracheostomy. CHEST: Clear. ABDOMEN: Soft. NEUROLOGIC: Awake and alert. Arousable, but sleepy. LABORATORY DATA: Sodium 142, potassium 3.1, and bicarb 38. White cell count of 16,000 and hemoglobin 8.4. Blood gas has improved, was done yesterday. ASSESSMENT/PLAN: Ms. Dick is a 49-year-old female with septic shock, gradually improving, more awake and alert. I will discontinue the Klonopin and just continue to the Seroquel and oxycodone. The patient would benefit from LTAC evaluation. Renal failure has improved as well. The patient is vent-dependent and may need prolonged weaning either at [facility], SNF, or LTAC. MD ALLEY Betts/MAREK /[id number]
[2019-11-01] MEDS ORDERED: POTASSIUM CHLORIDE 20MEQ/100ML 100 ML IV ONE (12:00)
--- NOTE | 2019-11-01 13:46 | Progress Note ---
DATE: 11.01.19 SUBJECTIVE: Remains awake, somewhat uncomfortable. She is net negative. Serum CO2 slowly coming down. OBJECTIVE: VITAL SIGNS: Temperature 97.9, pulse 68, blood pressure 87/60. CHEST: Occasional rhonchi. EXTREMITIES: Edema. NEURO: Awake. GENERAL APPEARS: Uncomfortable. NECK: Tracheostomy. LABORATORY DATA: White count 94003, hemoglobin 8.4, platelets are 183. Sodium is down to 142, K 3.1, serum CO2 38, last pH 7.42. ASSESSMENT: 1. Acute kidney injury, improved. 2. Fluid overload. 3. Mild hypokalemia. 4. Increase serum CO2 in part compensation for high pCO2. Anion gap is not increased at this time. PLAN: Continue low-dose Diamox, add low-dose Lasix via feeding tube. We will follow along. MD JENNIFER Ocasio/MAREK /[id number] MTDGer
[2019-11-01] MEDS: FLUCONAZOLE 200 MG/100 ML 100 ML IV SCH (17:22)
--- NOTE | 2019-11-01 17:33 | NUR ---
INFECTIOUS DISEASE PROGRESS NOTE DR. JANEE GREGORIO SUBJECTIVE: Ms. Dick remains in intensive care unit, intubated. She seems to be a little more alert. Vitals also seem to be better. Remains on the ventilator. ROS: unable to obtain due to condition PHYSICAL EXAMINATION: GENERAL: She currently follows simple commands. VITAL SIGNS: Stable, afebrile. HEENT: She is not icteric. NECK: Supple. CHEST: Few crackles at the bases. HEART: S1, S2. ABDOMEN: Soft. Bowel sounds present. EXTREMITIES: No edema. SKIN: No rash. RADIOLOGY: reviewed LABS: reviewed IMPRESSION: Sepsis on admission secondary to line infection Pnuemonia present on admission MANOLO Septic Shock PLAN: currently on fluconazole, meropenem, and linezolid To finish in 14 days Continue supportive care Leda Fowler MSN, [employer], AGACNP- Janee Gregorio M.D
[2019-11-01] MEDS: NOREPINEPHRINE INJ 4MG/4ML 16 MG in DEXTROSE 5% 250ML 250 ML IV SCH (19:33)
[2019-11-02] VITALS (20 sets, daily range): BP systolic 83–103; BP diastolic 55–64
[2019-11-02] MEDS: INSULIN REGULAR, HUMAN 100 UNIT/1 ML 3ML VIAL SQ SCH ×5 (00:02→23:17)
[2019-11-02] MEDS: MEROPENEM 500MG/ NS 50ML 50 ML IV SCH ×3 (05:29→22:21)
[2019-11-02] MEDS: METOCLOPRAMIDE HCL 10 MG/2ML VIAL IV SCH ×4 (05:29→23:16)
[2019-11-02] MEDS: LINEZOLID 600 MG/D5W 300ML 300 ML IV SCH ×2 (05:29→17:22)
[2019-11-02] MEDS: ACETAZOLAMIDE 250 MG TAB PO SCH ×2 (07:47→17:22)
[2019-11-02] MEDS: BALSAM PERU/CASTOR OIL 60 GM OINT...G. TP SCH (07:47)
[2019-11-02] MEDS: MIDODRINE 2.5 MG TAB PO SCH ×3 (07:47→17:22)
[2019-11-02] MEDS: FUROSEMIDE INJ 10 MG/ML 2 ML VIAL IV SCH (07:47)
[2019-11-02] MEDS: FAMOTIDINE 20 MG/2 ML VIAL IV SCH ×2 (07:47→17:22)
[2019-11-02] MEDS: SERTRALINE HCL 50 MG TAB PO SCH (07:47)
[2019-11-02] MEDS: QUETIAPINE FUMARATE 25 MG TAB PO SCH ×2 (07:47→22:21)
[2019-11-02 08:19] LABS: BASOPHILS % 0.3 % (0.0-1.0); EOSINOPHILS # (AUTO) 0.2 (0.0-0.4); EOSINOPHILS % 1.9 % (0.0-6.0); HEMATOCRIT 27.2 % (34.2-44.1); HEMOGLOBIN 7.5 g/dL (12.0-16.0); LYMPHOCYTES % 8.4 % (18.0-39.1); MEAN CORPUSCULAR HEMOGLOBIN 27.2 pg (28-32); MEAN CORPUSCULAR HGB CONC 27.6 g/dL (31-35); MEAN CORPUSCULAR VOLUME 98.6 fL (81-99); MONOCYTES # (AUTO) 0.8 (0.2-0.8); MONOCYTES % 6.8 % (4.4-11.3); NEUTROPHILS # (AUTO) 9.1 (2.1-6.9); NEUTROPHILS % 80.7 % (38.7-80.0); PLATELET COUNT 193 x10e3/uL (140-360); RED BLOOD COUNT 2.76 x10e6/uL (3.6-5.1); RED CELL DISTRIBUTION WIDTH 21.7 % (11.7-14.4)
[2019-11-02 08:36] LABS: ANION GAP 15.2 mmol/L (8-16); BLOOD UREA NITROGEN 19 mg/dL (7-26); BUN/CREATININE RATIO 25 (6-25); CARBON DIOXIDE 34 mmol/L (22-29); CHLORIDE 94 mmol/L (98-107); CREATININE, SERUM 0.77 mg/dL (0.57-1.11); EST GLOMERULAR FILTRATION RATE > 60 ML/MIN (60-); GLUCOSE 159 mg/dL (74-118); POTASSIUM 3.2 mmol/L (3.5-5.1); SODIUM 140 mmol/L (136-145)
[2019-11-02] MEDS ORDERED: FUROSEMIDE 40 MG TAB PO SCH (09:00)
[2019-11-02] MEDS ORDERED: POTASSIUM CHLORIDE 20MEQ/15ML UDC NG ONE (09:00)
--- NOTE | 2019-11-02 10:16 | NUR ---
ORDERS REC'D FOR LTAC EVAL PT STILL ON PRESSORS ANNE CALLED NEXT OF [facility] [employer], RAYMUNDO QUINONES AT [phone]; NO ANSWER AND VOICE MAIL NOT SET UP CHECKED WITH [facility] AND ICU NURSE TO SEE IF THEY HAD DIFFERENT CONTACT NUMBERS; HOWEVER THE ONLY NUMBER THEY HAVE IS [facility]'Michael RODRÍGUEZ WILL CONTINUE TO REACH RAYMUNDO FOR CHOICE
--- NOTE | 2019-11-02 10:25 | Progress Note ---
DATE: 11.05.19 SUBJECTIVE: Remains on ventilator. Tracheostomy in place. Pressors have been weaned down progressively. She has been in some pain. History of metastatic cancer per records. She is net negative. OBJECTIVE: VITAL SIGNS: Temperature is 98.2, blood pressure 116/60, pulse 98. CHEST: Occasional rhonchi. EXTREMITIES: Edema. SKIN: With gangrenous changes. NEURO: Sleepy at this time, got opiate. ASSESSMENT: 1. Acute kidney injury, improved. Septic shock, improving. 2. Fluid overload. PLAN: 1. Continue low-dose Lasix IV. Her sodium has improved (she was hyponatremic). 2. Replace potassium. 3. Monitor for worsening alkalosis. Stefano Renner MD VKK/MODL /[id number] MTDD
--- NOTE | 2019-11-02 12:00 | Progress Note ---
DATE: SUBJECTIVE: The patient is somewhat sleepy, has received oxycodone, but otherwise off all sedation and breathing much better. On mechanical ventilator, FiO2 of 60%. She is on pressure control mode. PHYSICAL EXAMINATION: VITAL SIGNS: Temperature 97.6, pulse of 91, and blood pressure 93/57. CHEST: Clear to auscultation. Occasional crackles. The patient has a tracheostomy. HEART: S1-S2 audible. ABDOMEN: Soft. EXTREMITIES: No pedal edema. LABORATORY DATA: White count of 11,000, hemoglobin is 7.5, and platelets 193. Chemistry reviewed. Chest x-ray on shows improvement. ASSESSMENT/PLAN: Ms. Dick is a 49-year-old female. She is chronically vent dependent, came in with septic shock, now resolving. Current problems: 1. Septic shock that is resolved. Repeat blood culture is negative. On antibiotics per Infectious Disease recommendation. 2. Acute on chronic hypoxic hypercapnic respiratory failure. The patient is improving, still on mechanical ventilatory support. The patient is ventilator dependent. We will benefit from LTAC. 3. Wean the vasopressors as tolerated. Midodrine has been started. We will reduce the dose of oxycodone. Continue the patient on Seroquel. Overall, the patient is comfortable. Critical care time spent 45 minutes. MD ALLEY Betts/MAREK /[id number]
--- NOTE | 2019-11-02 12:58 | NUR ---
ATTEMPTED TO REACH RAYMUNDO AGAIN AT ABOVE NUMBER NO ANSWER AND VOICE MAIL NOT SET UP NOTIFIED NURSE PINEDA THAT IF SHE SPEAKS WITH FAMILY TODAY TO GIVE THEM MY NUMBER SO I CAN GET CHOICE FOR LTAC
--- NOTE | 2019-11-02 15:09 | NUR ---
CM SPOKE WITH DAUGHTER RAYMUNDO AND GAVE CHOICE FOR [facility], COMPLETED CHOICE FILED CHOICE, FAXED CLINICALS TO [facility] ADMISSIONS AND TEXTED REP THAT ON WAY. MOT STARTED AND PUT WITH PACKET IN CM OFFICE.
--- NOTE | 2019-11-02 15:28 | NUR ---
Nutrition Intervention Note RD Recommendation(s) for Physician: -Recommend to advance TF of Vital AF to goal rate of 50 mL/hr (provides 1440 kcal, 90 g protein) -Water/fluid management per MD Plan of Care: RD following, monitoring for tolerance and adequacy, tube feed recommendation Nutrition reason for involvement: follow up RD Assessment 11/01: Follow up. Chart reviewed. LTAC is being discussed per chart. Pt remains on mechanical ventilation. Pt is tolerating TF @ 30 mL/hr. Recommend advancing to goal rate of 50 mL/hr. Will continue to monitor. 10/29: Follow up. Pt remains on vent via trach and sedated with Precedex. Pt currently on Levophed at 2 mcg/min. Pt currently tolerating TF via PEG at 30 ml/hr, recommend advancing as tolerated to goal rate. Pt discussed during MDR. Chart reviewed. Will continue to monitor. 10/24: Follow up. Chart reviewed. Pt remains on the ventilator and is sedated. Per nursing note, pts tube feeding has been on hold at this time due to high residuals. 550 mL residuals were recorded yesterday. Recommend increasing resuming TF medically appropriate. Will continue to monitor (10/22/19) Pt is a 49 year old female admitted with septic shock and pneumonia. Pt is from a LTAC facility. Pt is mechanically ventilated and has a tracheostomy. Unable to obtain nutrition history from pt. There are no previous weights in chart. Pt is receiving Vital AF 1.2 @ 30 mL/hr through PEG tube. Recommendations provided. RD to manage TF order per Dr. Melvin. Will continue to monitor. Principal Problems/Diagnoses: septic shock and pneumonia. PMH: Chronic respiratory failure, Chronic neurological impairment, Recent Staph aureus pneumonia. I/O: 1270/2300 GI: liquid stool (11/01), soft/large/round abdomen Skin: sacrum breakdown Labs: 10/31: Na 140, K 3.2, BUN 19, Cr 0.77, Glu 159, Ca 8.0 10/29: Na 146, K 4.2, BUN 29, Cr 0.81, Gluc 146 10/24: Na 134, K 5.5, BUN 49, Cr 1.15, Glu 141, Total Bili1.8, Direct Bili 1.2, AST > 4202, ALT > 4113 (10/21) Na 138, K 4.6, BUN 23, Cr 1.09, Glu 182 Meds: reglan, lasix, linezolid, antibiotic, norepinephrine, insulin, lactulose Ht: 64 inches Wt: 176.5 lbs (10/29) questionable wt change 191. lb () 185 lbs (10/23) 160 lbs (10/19) Suspect possible weight error BMI: 27.5 kg/m2 using wt of 160 lbs IBW: 120 lbs Malnutrition Evaluation (10/30/19) The patient does not meet criteria for a specified degree of malnutrition at this time. Will re-evaluate at follow-up as appropriate. Intake adequacy: TF not meeting needs x 5 days Wt loss: unable to evaluate Fat loss: none observed, ample skinfold thickness Muscle loss: none observed, shoulder round Edema: +1 generalized edema Functional status; unable to evaluate- intubated and sedated Nutrition Prescription (Diet Order): Vital AF 1.2 20 mL/hr, infusing at 30 ml/hr (864 kcal and 54 gm protein) Estimated Nutritional Needs: 1200-9820 calories/day (18-20 kcal/kg CBW) 87-145 g protein/day (1.2-2g pro/kg CBW) Diet Adequacy: Not meeting calorie needs, Not meeting protein needs Tolerance: tolerating TF at 30 ml/hr Diet Education Needs Assessment: Diet education not indicated, patient is mechanically ventilated Nutrition Care Level: high TF not at goal rate Nutrition Diagnosis: Inadequate oral intake related to trach/mechanical ventilation as evidenced by pt requiring enteral nutrition. Goal: Patient will meet 75-100% of estimated needs by follow up Progress: goal not met Interventions: - Composition, Rate, Route, Recommended Modifications Monitoring/Evaluation: -Total energy intake, Total protein intake, Formula/Solution, Weight change Signed: Devi Nelson, RD, LD
--- NOTE | 2019-11-02 16:35 | NUR ---
this infectious disease progress note patient seen and examined chart reviewed clinically seems to be better today. Events noted. SUBJECTIVE: Ms. Dick remains in intensive care unit, intubated. She seems to be a little more alert. Vitals also seem to be better. Remains on the ventilator. ROS: unable to obtain due to condition PHYSICAL EXAMINATION: GENERAL: She currently follows simple commands. VITAL SIGNS: Stable, afebrile. HEENT: She is not icteric. NECK: Supple. CHEST: Few crackles at the bases. HEART: S1, S2. ABDOMEN: Soft. Bowel sounds present. EXTREMITIES: No edema. SKIN: No rash. RADIOLOGY: reviewed LABS: reviewed IMPRESSION: Sepsis on admission secondary to line infection/pneumonia Pnuemonia present on admission aspiration healthcare associated MANOLO Septic Shock clinically seems to be getting better PLAN: currently on fluconazole, meropenem, and linezolid continue as ordered To finish in 14 days Continue supportive care
[2019-11-02] MEDS: FLUCONAZOLE 200 MG/100 ML 100 ML IV SCH (17:22)
[2019-11-02] MEDS: NOREPINEPHRINE INJ 4MG/4ML 16 MG in DEXTROSE 5% 250ML 250 ML IV SCH (17:23)
[2019-11-03] VITALS (22 sets, daily range): BP systolic 88–128; BP diastolic 61–94
--- NOTE | 2019-11-03 02:23 | Consultation ---
DATE OF CONSULTATION: 11/02/2019 Cardiology Consultation REASON FOR CONSULTATION: Acrocyanosis and gangrene. HISTORY OF PRESENT ILLNESS: A 49-year-old woman with history of diabetes, admitted with acute respiratory failure, severe sepsis with septic shock requiring high dose pressors, Enterococcus and Pseudomonas bacteremia. Course complicated with acute renal failure as well as development of acrocyanosis followed by early dry gangrene to distal extremities, digits, and forefeet bilaterally as well as an upper extremities and digits. The patient requirements have gradually declined. Currently on Levophed at 1 mcg/minute. She had an echocardiogram during this admission remarkable for preserved left ventricular systolic function, left ventricular ejection fraction of 60% to 65%, aortic valve sclerosis without stenosis, moderate tricuspid regurgitation, right ventricular enlargement, right atrial dilatation, and estimated RVSP of 63, consistent with moderate pulmonary hypertension. ALLERGIES: NO KNOWN DRUG ALLERGIES. PAST MEDICAL HISTORY: As per HPI. SOCIAL HISTORY: Unable to assess. FAMILY HISTORY: Unable to assess. REVIEW OF SYSTEMS: A 12-system review, unable to assess. PHYSICAL EXAMINATION: VITAL SIGNS: Temperature 97.8, heart rate 90, blood pressure 99/62, respiratory rate 18, O2 saturation 99%. GENERAL: Chronically ill-appearing, altered mental status. Trach in place, connected to vent. CHEST: With rales and decreased breath sounds. CARDIOVASCULAR: Regular rate and rhythm. Normal S1, S2. No S3 or S4. Systolic murmur 1/6. ABDOMEN: Soft. Bowel sounds positive. EXTREMITIES: With 1+ edema to bilateral lower extremities. Palpable radial, dorsalis pedis, and posterior tibial pulses with radial pulses being 1+ bilaterally, with gangrene of bilateral forefeet and digits to lower extremities and digits to upper extremities. CARDIOVASCULAR MEDICATIONS: Reviewed. Levophed 1 mcg/minute, midodrine 10 mg t.i.d., furosemide 20 mg daily. STUDIES: Reviewed. Sodium 140, potassium 3.2, chloride 94, bicarbonate 34, BUN 19, creatinine 0.7, glucose 159. White blood cells 11.3, hemoglobin 7.5, platelets 193. PT 16.8, INR 1.3. AST 478, ALT 1294, alkaline phosphatase 191, total bilirubin 2.9. Sinus rhythm, on telemetry. ASSESSMENT AND PLAN: A 49-year-old woman presents with severe sepsis with septic shock, status post prolonged high dose pressors, presents with acrocyanosis and distal extremity gangrene, septic shock, shock liver, anemia, and Enterococcus and Pseudomonas bacteremia, suspected pneumonia, and diabetes. RECOMMENDATIONS: 1. Discussed with nursing staff, taper pressors to maintain MAP over 65, avoid if at all possible. Fluid challenge advised. 2. Keep distal extremities warm and covered with addition of aspirin 81 mg daily and close monitoring of H and H. Overall, likely, distal extremity gangrene associated to high pressure requirements, at this point, avoiding further pressure use would be most beneficial. Can add albumin and oral saline challenges as needed to treat hypotension if responsive. Thank you for the opportunity to participate in the care of Ms. Dick. We will follow with you. Danial Christiansen MD AFSummer/MODL /[id number]
[2019-11-03 05:07] LABS: ANION GAP 13.2 mmol/L (8-16); BLOOD UREA NITROGEN 16 mg/dL (7-26); BUN/CREATININE RATIO 20 (6-25); CALCIUM 8.4 mg/dL (8.4-10.2); CARBON DIOXIDE 34 mmol/L (22-29); CHLORIDE 97 mmol/L (98-107); EST GLOMERULAR FILTRATION RATE > 60 ML/MIN (60-); GLUCOSE 104 mg/dL (74-118); MAGNESIUM 1.5 MG/DL (1.3-2.1); PHOSPHORUS 4.9 MG/DL (2.3-4.7); POTASSIUM 3.2 mmol/L (3.5-5.1); SODIUM 141 mmol/L (136-145)
[2019-11-03] MEDS: INSULIN REGULAR, HUMAN 100 UNIT/1 ML 3ML VIAL SQ SCH ×3 (06:00→17:03)
[2019-11-03] MEDS: METOCLOPRAMIDE HCL 10 MG/2ML VIAL IV SCH ×4 (06:15→23:26)
[2019-11-03] MEDS: LINEZOLID 600 MG/D5W 300ML 300 ML IV SCH ×2 (06:15→17:03)
[2019-11-03] MEDS: MEROPENEM 500MG/ NS 50ML 50 ML IV SCH ×3 (06:15→21:00)
--- NOTE | 2019-11-03 07:11 | Diagnostic Imaging Report ---
EXAMINATION: CHEST SINGLE (PORTABLE) INDICATION: ^intubated ^[id number] ^[id number] COMPARISON: Chest radiographs 10/31/2019, 10/30/2019, 10/29/2019 FINDINGS: TUBES and LINES: Unchanged position of endotracheal tube. LUNGS: Mild increase in diffuse bilateral airspace opacities, left greater than right. PLEURA: Redemonstrated small bilateral pleural effusions. No pneumothorax. HEART AND MEDIASTINUM: The cardiomediastinal silhouette is unchanged. BONES AND SOFT TISSUES: No acute osseous lesion. Soft tissues are unremarkable. IMPRESSION: 1. Mild increase in diffuse bilateral airspace opacities compared to chest radiograph from 10/31/2019. 2. Persistent small bilateral pleural effusions. Signed by: Dr. Rakesh Arroyo M.D. on 11/03/2019 7:08 AM
[2019-11-03] MEDS: OXYCODONE HCL IR 5 MG TAB PO PRN (08:56)
[2019-11-03] MEDS: BALSAM PERU/CASTOR OIL 60 GM OINT...G. TP SCH (08:57)
[2019-11-03] MEDS: QUETIAPINE FUMARATE 25 MG TAB PO SCH ×2 (08:57→20:57)
[2019-11-03] MEDS: ACETAZOLAMIDE 250 MG TAB PO SCH ×2 (08:57→16:32)
[2019-11-03] MEDS: FAMOTIDINE 20 MG/2 ML VIAL IV SCH ×2 (08:57→16:32)
[2019-11-03] MEDS: MIDODRINE 2.5 MG TAB PO SCH ×3 (08:57→16:32)
[2019-11-03] MEDS: SERTRALINE HCL 50 MG TAB PO SCH (08:57)
[2019-11-03] MEDS: FUROSEMIDE INJ 10 MG/ML 2 ML VIAL IV SCH (08:57)
--- NOTE | 2019-11-03 09:09 | NUR ---
infectious disease parents note patient seen and examined Chart reviewed the events noted . Patient remains intensive care unit She seems to be more alert comfortable her vitals stable afebrile HEENT she has not protecting supple Chest few rhonchi bilateral heart S1-S2 abdomen sore throats present extremity edema skin respiration sepsis on admission pneumonia line infection continue as ordered please refer to the note
--- NOTE | 2019-11-03 10:14 | Progress Note ---
DATE: SUBJECTIVE: The patient is on mechanical ventilator. She is ventilator dependent. She has to take tracheostomy, still requiring 1 mcg of Levophed. She is awake and alert. PHYSICAL EXAMINATION: VITAL SIGNS: Temperature 98.6, pulse of 103, blood pressure 128/66, respiratory rate of 18. She is on pressure control ventilation with FiO2 of 60% and PI of 34. The patient is pulling close to 450-500 tidal volume. HEENT: Head is atraumatic, normocephalic. NECK: The patient has tracheostomy. CHEST: Clear to auscultation bilaterally. No wheezing. HEART: S1, S2 audible. ABDOMEN: Soft. EXTREMITIES: No pedal edema. LABORATORY DATA: White count of 11,000, hemoglobin 7.5, and platelets 193. Chemistry; sodium 141, potassium 3.2, chloride 97, bicarb 34, BUN 16, and creatinine 0.8. ASSESSMENT/PLAN: 1. Ms. Dick is a 49-year-old female. She was admitted here with septic shock. The patient has markedly improved. Will benefit from LTAC. Continue the patient on antibiotics per ID recommendation. 2. I will continue the patient on midodrine 10 mg t.i.d. Hopefully, Levophed can be weaned. MD ALLEY Betts/MODL /[id number]
[2019-11-03] MEDS ORDERED: POTASSIUM CHLORIDE 20MEQ/15ML UDC PEG NR ×2 (12:45→17:15)
--- NOTE | 2019-11-03 13:25 | Progress Note ---
DATE: Internal Medicine Progress Note SUBJECTIVE: The patient is feeling better today. PHYSICAL EXAMINATION: HEART: Showed regular rhythm. Normal S1 and S2 sound. LUNGS: Clear bilaterally. ABDOMEN: Soft. EXTREMITIES: Show some evidence of gangrene on distal extremities. VITAL SIGNS: Blood pressure 96/64, temperature 98.7, heart rate 94 per minute, respiratory rate 20 per minute, and O2 saturation 99%. LABORATORY STUDIES: On the CBC; white blood count 11.30, hemoglobin 7.5, hematocrit 27.2, and platelet count 183,000. On the BMP; sodium 141, potassium 3.2, chloride 97, CO2 34, BUN 16, creatinine 0.80, glucose 104, calcium 8.4, phosphorus 4.9, and magnesium 1.5. Serology, coronavirus test is negative x2. IMAGING: Chest x-ray showed mild increase in diffuse bilateral airspace opacity compared to the chest radiograph on October 31, 2019, persistent 1+ small bilateral pleural effusion. MICROBIOLOGY: Showed blood culture completely negative. FINAL IMPRESSION: 1. Acute respiratory failure. 2. Septic shock. 3. Septic liver. 4. Gangrene of the finger. 5. Acute anemia. PLAN OF TREATMENT: Continue fluconazole 200 mg IV once a day, Zyvox 600 mg IV twice a day, meropenem 500 mg IV q.8 hours, Levophed as needed for systolic blood pressure less than 90, Tylenol 650 mg q.4 hours as needed for mild pain or fever, Diamox 250 mg twice a day, Balsam [place]/castor oil 60 g topically daily, D50 push as needed for hypoglycemia, Pepcid 20 mg IV twice a day, furosemide 20 mg IV daily, lactulose 20 g as needed for constipation, Xopenex q.4 hours as needed for shortness of breath, metoclopramide 5 mg IV q.6 hours, midodrine 10 mg 3 times a day, oxycodone 5 mg twice a day as needed, and Seroquel 25 mg twice a day. Continue to monitor blood sugar q.6 hours. Continue Zoloft 50 mg daily. We are going to replace potassium. Recheck potassium and magnesium level. Time spent around 55 minutes, discussing the case with the nurse and also reviewing the labs, reviewed the search consultant report. Ramiro Daniel, MD LAS/JOHANNYL /[id number]
--- NOTE | 2019-11-03 13:27 | NUR ---
INFECTIOUS DISEASE PROGRESS NOTE DR. JANEE BOO SUBJECTIVE: slight improvement ROS: unable to obtain due to condition PHYSICAL EXAMINATION: GENERAL: awake, alert VITAL SIGNS: per chart, afebrile. HEENT: She is not icteric. NECK: Supple. no JVD CHEST: Few crackles at the bases. HEART: S1, S2. ABDOMEN: Soft. Bowel sounds present. EXTREMITIES: No edema. no joint swelling SKIN: No rash. normal temp RADIOLOGY: reviewed LABS: reviewed IMPRESSION: Sepsis on admission secondary to line infection Pnuemonia present on admission MANOLO Septic Shock PLAN: currently on fluconazole, meropenem, and linezolid To finish in 14 days Continue supportive care Agree with LTAC, needs continued support and extensive PT/OT Leda Fowler MSN, ELECTRO MECHANICAL DESIGNER, AGACNP-BC Janee Boo M.D
[2019-11-03] MEDS: FLUCONAZOLE 200 MG/100 ML 100 ML IV SCH (15:34)
[2019-11-03] MEDS: NOREPINEPHRINE INJ 4MG/4ML 16 MG in DEXTROSE 5% 250ML 250 ML IV SCH (18:26)
--- NOTE | 2019-11-03 21:27 | Progress Note ---
DATE: 11/03/2019 Cardiology Progress Note SUBJECTIVE: The reason for the initial consultation was acrocyanosis and gangrene. The patient is on a ventilator via tracheostomy. The patient is awake and follows some directions. OBJECTIVE: VITAL SIGNS: Her blood pressure is 96/60 mmHg with a heart rate of 92. She is afebrile and respiratory rate is 18. Oxygen saturation is 99%. HEENT: Tracheostomy is in place and connected to the vent. LUNG: Decreased breath sounds in both lung roldan. CARDIOVASCULAR: Regular rate and rhythm. Normal S1 and S2. Systolic murmur heard. ABDOMEN: Soft. EXTREMITIES: 1+ edema. Her pedal pulses are palpable. She has gangrene of bilateral forefeet and digit on both feet as well as digits in both hands. CARDIOVASCULAR MEDICATIONS: Reviewed. LABORATORY DATA: From November 02, 2019. No lab data from today. It shows a white blood cell count of 11.3, a hemoglobin of 7.5 decreased from 8.4 from 2 days before. Her hematocrit is 27.2 and platelet count is 193,000. Her chemistry profile is from today, showing a sodium of 141, potassium of 3.2, chloride of 97, bicarb of 34, BUN is 16, creatinine is 0.8, and glucose is 104. Her phosphorus is 4.9 and magnesium 1.5. There are no blood gases from today. ASSESSMENT AND PLAN: Severe sepsis with septic shock requiring high-dose pressors, resulting in acrocyanosis and distal extremity gangrene. Plan is to wean off the pressors as much as possible. In addition, I recommend maintaining the MAP over 65 and keeping the extremities warm. The patient is currently receiving aspirin 81 mg daily. Avoid further pressors if at all possible. Isabelle Houston MD EC/MODL /[id number]
[2019-11-04] VITALS (25 sets, daily range): BP systolic 86–115; BP diastolic 54–99
[2019-11-04] MEDS: INSULIN REGULAR, HUMAN 100 UNIT/1 ML 3ML VIAL SQ SCH ×4 (00:40→16:23)
[2019-11-04] MEDS: OXYCODONE HCL IR 5 MG TAB PO PRN ×2 (04:04→23:23)
[2019-11-04 05:31] LABS: BASOPHILS % 0.2 % (0.0-1.0); EOSINOPHILS # (AUTO) 0.2 (0.0-0.4); EOSINOPHILS % 2.3 % (0.0-6.0); HEMATOCRIT 26.4 % (34.2-44.1); HEMOGLOBIN 7.3 g/dL (12.0-16.0); LYMPHOCYTES # (AUTO) 1.1 (1.0-3.2); LYMPHOCYTES % 12.1 % (18.0-39.1); MEAN CORPUSCULAR HEMOGLOBIN 27.9 pg (28-32); MEAN CORPUSCULAR HGB CONC 27.7 g/dL (31-35); MEAN CORPUSCULAR VOLUME 100.8 fL (81-99); MONOCYTES # (AUTO) 0.7 (0.2-0.8); MONOCYTES % 7.7 % (4.4-11.3); NEUTROPHILS # (AUTO) 6.6 (2.1-6.9); NEUTROPHILS % 76.3 % (38.7-80.0); PLATELET COUNT 211 x10e3/uL (140-360); RED BLOOD COUNT 2.62 x10e6/uL (3.6-5.1); RED CELL DISTRIBUTION WIDTH 22.6 % (11.7-14.4)
[2019-11-04] MEDS: MEROPENEM 500MG/ NS 50ML 50 ML IV SCH ×3 (05:32→21:23)
[2019-11-04] MEDS: LINEZOLID 600 MG/D5W 300ML 300 ML IV SCH ×2 (05:33→18:12)
[2019-11-04] MEDS: METOCLOPRAMIDE HCL 10 MG/2ML VIAL IV SCH ×3 (05:33→18:12)
[2019-11-04 06:05] LABS: ANION GAP 14.4 mmol/L (8-16); BLOOD UREA NITROGEN 14 mg/dL (7-26); BUN/CREATININE RATIO 16 (6-25); CALCIUM 8.7 mg/dL (8.4-10.2); CARBON DIOXIDE 32 mmol/L (22-29); CHLORIDE 98 mmol/L (98-107); CREATININE, SERUM 0.86 mg/dL (0.57-1.11); EST GLOMERULAR FILTRATION RATE > 60 ML/MIN (60-); GLUCOSE 96 mg/dL (74-118); POTASSIUM 3.4 mmol/L (3.5-5.1); SODIUM 141 mmol/L (136-145)
[2019-11-04] MEDS: ASPIRIN 81 MG CHEW TAB PO SCH (09:03)
[2019-11-04] MEDS: MIDODRINE 2.5 MG TAB PO SCH ×3 (09:03→16:19)
[2019-11-04] MEDS: FUROSEMIDE INJ 10 MG/ML 2 ML VIAL IV SCH (09:03)
[2019-11-04] MEDS: ACETAZOLAMIDE 250 MG TAB PO SCH ×2 (09:03→16:19)
[2019-11-04] MEDS: FAMOTIDINE 20 MG/2 ML VIAL IV SCH ×2 (09:03→16:19)
[2019-11-04] MEDS: SERTRALINE HCL 50 MG TAB PO SCH (09:04)
[2019-11-04] MEDS: BALSAM PERU/CASTOR OIL 60 GM OINT...G. TP SCH (09:04)
[2019-11-04] MEDS: QUETIAPINE FUMARATE 25 MG TAB PO SCH ×2 (09:04→21:23)
[2019-11-04] MEDS ORDERED: POTASSIUM CHLORIDE 20 MEQ TAB CR PO NR (12:30)
[2019-11-04] MEDS ORDERED: POTASSIUM CHLORIDE 20MEQ/15ML UDC PEG NR (14:30)
--- NOTE | 2019-11-04 15:04 | NUR ---
section disease progress note patient seen and examined chart reviewed patient admitted intensive care unit she seems better at present time limited review chart reviewed slight improvement ROS: unable to obtain due to condition PHYSICAL EXAMINATION: GENERAL: awake, alert VITAL SIGNS: per chart, afebrile. HEENT: She is not icteric. NECK: Supple. no JVD CHEST: Few crackles at the bases. HEART: S1, S2. ABDOMEN: Soft. Bowel sounds present. EXTREMITIES: No edema. no joint swelling SKIN: No rash. normal temp RADIOLOGY: reviewed LABS: reviewed IMPRESSION: Sepsis on admission secondary to line infection Pnuemonia present on admission MANOLO Septic Shock
--- NOTE | 2019-11-04 16:05 | Progress Note ---
DATE: Internal Medicine Progress Note SUBJECTIVE: The patient is alert and awake. PHYSICAL EXAMINATION: HEART: Showed regular rhythm. Normal S1, S2 sound. LUNGS: Clear bilaterally. ABDOMEN: Soft. EXTREMITIES: Show no edema. Has ischemic lesions on the fingers and toes. VITAL SIGNS: Blood pressure 98/80, temperature 98.4 degrees Fahrenheit, heart rate 91 per minute, respiratory rate is 20 per minute, oxygen saturation 100%. LABORATORY DATA: On the CBC; white blood count normal 8.70, hemoglobin 7.3, hematocrit 26.4, platelet count 211,000. On the BMP; sodium 141, potassium 3.4, chloride 98, CO2 of 32, anion gap 14.4, BUN 14, creatinine 0.86, glucose 96. Calcium 8.7, phosphorus 4.9, magnesium 1.5. Coronavirus test is negative. Last chest x-ray done yesterday showed mild increase in diffuse bilateral airspace opacity compared to chest radiograph from October 31, 2019. Persistent small bilateral pleural effusion. MICROBIOLOGY: Blood cultures negative for 5 days, that was the last one on October 23. FINAL IMPRESSION: 1. Acute respiratory failure, she is on oxygen right now. 2. Septic shock. 3. Shock liver. 4. Gangrene on the fingers. 5. Acute anemia. 6. Bilateral pneumonia. PLAN OF TREATMENT: We will continue with current medication regimen, which includes fluconazole 200 mg IV daily, Zyvox 600 mg IV twice a day, meropenem 500 mg IV q.8 hours, Tylenol 650 mg q.4 hours as needed for pain or fever, Diamox 250 mg twice a day, aspirin 81 mg daily, Balsam [place]/castor oil 60 g topically daily, Pepcid 20 mg IV twice a day, furosemide 20 mg daily, lactulose 20 g as needed for constipation, Xopenex q.4 hours as needed for shortness of breath, metoclopramide 5 mg IV q.6 hours, midodrine 10 mg three times a day, oxycodone 5 mg twice a day as needed, potassium going to replace today. We are going to repeat a BMP, magnesium level. Continue Seroquel 25 mg twice a day. Continue monitoring blood sugar before meals and at bedtime, Zoloft 50 mg daily. Labs have been reviewed. Consult and report have been reviewed. Plan of care has been developed. Time spent around 59 minutes. MD FARZANEH Moe/MAREK /[id number]
[2019-11-04] MEDS: FLUCONAZOLE 200 MG/100 ML 100 ML IV SCH (16:19)
[2019-11-05] VITALS (16 sets, daily range): BP systolic 76–111; BP diastolic 49–73
--- NOTE | 2019-11-05 00:21 | Progress Note ---
DATE: 11/04/2019 Cardiology Progress Note SUBJECTIVE: The patient is drowsy, but arousable. She is on a vent via tracheostomy. OBJECTIVE: VITAL SIGNS: Show a blood pressure of 93/61 with a heart rate of 101 beats per minute, temperature is 99, and oxygen saturation by pulse oximetry is 100% on the ventilator. HEAD AND NECK: Tracheostomy is in place and connected to the vent. LUNGS: Decreased breath sounds. CARDIOVASCULAR: Regular rate and rhythm. Normal S1, S2. There is a systolic murmur. ABDOMEN: Soft. EXTREMITIES: 1+ edema. She has gangrene of bilateral forefeet and digits on both feet as well as digits in both her hands. CARDIOVASCULAR MEDICATIONS: Reviewed. LABORATORY DATA: Shows a white blood cell count of 8.7, hemoglobin 7.3, hematocrit 26.4, platelet count is 211,000. Chemistry; sodium is 141, potassium is 3.4, chloride is 98, bicarb is 32, BUN is 14, creatinine is 0.86, glucose is 96. Her last blood gas was on October 31, 2019. Her last INR was 1.3 on October 29, 2019. ASSESSMENT: 1. Severe sepsis with septic shock requiring high-dose pressors resulting in acrocyanosis and distal extremity gangrene. 2. Acute respiratory failure. 3. Septic shock. 4. Shock liver. 5. Acute anemia. 6. Bilateral pneumonia. PLAN: 1. Continue to wean off all pressors as much as possible. 2. Maintain MAP over 65. 3. Continue aspirin 81 mg daily. Isabelle Houston MD EC/MODL /[id number]
[2019-11-05] MEDS: METOCLOPRAMIDE HCL 10 MG/2ML VIAL IV SCH ×4 (00:53→18:00)
[2019-11-05] MEDS: INSULIN REGULAR, HUMAN 100 UNIT/1 ML 3ML VIAL SQ SCH ×4 (00:54→18:00)
[2019-11-05 05:33] LABS: BASOPHILS # (AUTO) 0.1 (0.0-0.1); BASOPHILS % 0.6 % (0.0-1.0); EOSINOPHILS # (AUTO) 0.2 (0.0-0.4); EOSINOPHILS % 2.1 % (0.0-6.0); HEMATOCRIT 25.5 % (34.2-44.1); HEMOGLOBIN 7.3 g/dL (12.0-16.0); LYMPHOCYTES # (AUTO) 0.9 (1.0-3.2); LYMPHOCYTES % 10.9 % (18.0-39.1); MEAN CORPUSCULAR HGB CONC 28.6 g/dL (31-35); MONOCYTES # (AUTO) 0.7 (0.2-0.8); MONOCYTES % 7.7 % (4.4-11.3); NEUTROPHILS # (AUTO) 6.7 (2.1-6.9); NEUTROPHILS % 77.8 % (38.7-80.0); PLATELET COUNT 242 x10e3/uL (140-360); RED BLOOD COUNT 2.43 x10e6/uL (3.6-5.1); RED CELL DISTRIBUTION WIDTH 24.1 % (11.7-14.4)
[2019-11-05] MEDS: MEROPENEM 500MG/ NS 50ML 50 ML IV SCH ×3 (05:35→21:49)
[2019-11-05] MEDS: LINEZOLID 600 MG/D5W 300ML 300 ML IV SCH ×2 (05:36→18:00)
[2019-11-05 05:41] LABS: MEAN CORPUSCULAR VOLUME 102.8 fL (81-99)
[2019-11-05 05:48] LABS: INR 1.21; PROTHROMBIN TIME 15.9 seconds (11.9-14.5)
[2019-11-05 05:55] LABS: ANION GAP 9.7 mmol/L (8-16); BLOOD UREA NITROGEN 14 mg/dL (7-26); BUN/CREATININE RATIO 16 (6-25); CALCIUM 8.8 mg/dL (8.4-10.2); CARBON DIOXIDE 34 mmol/L (22-29); CHLORIDE 97 mmol/L (98-107); CREATININE, SERUM 0.89 mg/dL (0.57-1.11); EST GLOMERULAR FILTRATION RATE > 60 ML/MIN (60-); GLUCOSE 112 mg/dL (74-118); POTASSIUM 3.7 mmol/L (3.5-5.1); SODIUM 137 mmol/L (136-145)
[2019-11-05] MEDS: OXYCODONE HCL IR 5 MG TAB PO PRN ×2 (08:01→14:40)
[2019-11-05] MEDS: MIDODRINE 2.5 MG TAB PO SCH ×3 (08:06→16:00)
[2019-11-05] MEDS: FUROSEMIDE INJ 10 MG/ML 2 ML VIAL IV SCH (08:06)
[2019-11-05] MEDS: FAMOTIDINE 20 MG/2 ML VIAL IV SCH ×2 (08:06→17:00)
[2019-11-05] MEDS: QUETIAPINE FUMARATE 25 MG TAB PO SCH ×2 (08:07→20:18)
[2019-11-05] MEDS: BALSAM PERU/CASTOR OIL 60 GM OINT...G. TP SCH (08:07)
[2019-11-05] MEDS: ACETAZOLAMIDE 250 MG TAB PO SCH ×2 (08:07→17:00)
[2019-11-05] MEDS: SERTRALINE HCL 50 MG TAB PO SCH (08:07)
[2019-11-05] MEDS: ASPIRIN 81 MG CHEW TAB PO SCH (08:07)
--- NOTE | 2019-11-05 08:45 | Diagnostic Imaging Report ---
EXAMINATION: CHEST SINGLE (PORTABLE) INDICATION: Shortness of breath COMPARISON: Multiple prior chest radiographs, most recently 11/03/2019 FINDINGS: LINES/TUBES:Tracheostomy and PICC line unchanged. EKG leads overlie the chest. LUNGS:The lungs are moderately inflated. Slight interval increase in bilateral multifocal interstitial and airspace opacities. PLEURA:Unchanged small bilateral pleural effusions. MEDIASTINUM:The cardiomediastinal silhouette appears unchanged in size and shape. BONES/SOFT TISSUES:No acute osseous injury. ABDOMEN:No free air under the diaphragm. IMPRESSION: Slight interval increase in bilateral multifocal airspace and interstitial opacities. Signed by: Shashi Norris MD on 11/05/2019 8:42 AM
[2019-11-05 10:49] LABS: ABG HCO3 33 mmol/L (22-26); ABG PCO2 55 mmHg (35-45); ABG PH 7.38 (7.35-7.45); ABG PO2 52 mmHg (80-105); ABG TCO2 34
--- NOTE | 2019-11-05 11:02 | NUR ---
INFECTIOUS DISEASE PROGRESS NOTE DR. JANEE BOO SUBJECTIVE: slight improvement ROS: unable to obtain due to condition PHYSICAL EXAMINATION: GENERAL: awake, alert VITAL SIGNS: per chart, afebrile. HEENT: She is not icteric. NECK: Supple. no JVD CHEST: Few crackles at the bases. HEART: S1, S2. ABDOMEN: Soft. Bowel sounds present. EXTREMITIES: No edema. no joint swelling SKIN: No rash. normal temp RADIOLOGY: reviewed LABS: reviewed IMPRESSION: Sepsis on admission secondary to line infection Pnuemonia present on admission MANOLO Septic Shock PLAN: currently on fluconazole, meropenem, and linezolid To finish in 14 days Continue supportive care Agree with LTAC, needs continued support and extensive PT/OT Leda Fowler MSN, PT SKILLED, AGACNP-BC Janee Boo M.D
--- NOTE | 2019-11-05 13:23 | Progress Note ---
DATE: 11.05.19 SUBJECTIVE: Remains in ICU. Still some swelling. She has been net negative. Gangrenous changes are present. Remains on tracheostomy. OBJECTIVE: VITAL SIGNS: Wake up occasionally, temperature 98.9, pulse 93, . CHEST: Occasional rhonchi. EXTREMITIES: With edema. NECK: Tracheostomy. LABORATORY DATA: Show serum CO2 now 34, which is holding relatively stable. Serum pCO2 of 55, pH 7.38. Sodium is reasonable as her potassium and calcium. ASSESSMENT: Fluid overload, acute kidney injury, improved. PLAN: Low-dose IV Lasix. MD DORIS OcasioK/MODL /[id number]
[2019-11-05] MEDS ORDERED: HYDROMORPHONE 1MG/1ML INJ IV PRN (16:30)
[2019-11-05] MEDS: FLUCONAZOLE 200 MG/100 ML 100 ML IV SCH (16:30)
[2019-11-05] MEDS: ENOXAPARIN SOD INJ 40 MG/0.4 ML SYR SC SCH (17:00)
[2019-11-06] VITALS (14 sets, daily range): BP systolic 78–143; BP diastolic 51–115
[2019-11-06] MEDS: METOCLOPRAMIDE HCL 10 MG/2ML VIAL IV SCH ×5 (00:34→23:50)
--- NOTE | 2019-11-06 01:41 | Progress Note ---
DATE: 11/05/2019 Cardiology Progress Note SUBJECTIVE: The patient remains on the vent via tracheostomy. She opens eyes spontaneously and follows some commands. OBJECTIVE: VITAL SIGNS: Her blood pressure is 92/67 mmHg with a heart rate of 93 beats per minute. Her temperature is 99.1. She is on FiO2 of 60% and her oxygenation is 99%. HEAD AND NECK: Showed tracheostomy in place and connected to the vent. LUNGS: Decreased breath sounds. CARDIOVASCULAR: Regular rate and rhythm. Normal S1 and S2 with a systolic murmur. ABDOMEN: Soft. EXTREMITIES: She has gangrene of bilateral digits in both feet as well as both her hands. CARDIOVASCULAR MEDICATIONS: Reviewed. LABORATORY DATA: Shows a white blood cell count of 8.65, hemoglobin 7.3, hematocrit 25.5, and platelet count 242,000. Sodium is 137, potassium 3.7, chloride 97, bicarb 34, BUN 14, creatinine 0.9, and glucose is 112. Her blood gas today on a lower FiO2 of 50% showed a pH of 7.38, pCO2 of 55, PO2 of 52, 85% saturation. ASSESSMENT: 1. Severe sepsis with septic shock requiring high-dose pressors resulting in acrocyanosis and distal extremity gangrene. 2. Acute respiratory failure. 3. Septic shock and shock liver. 4. Acute anemia. 5. Bilateral pneumonia. PLAN: 1. The patient has been weaned off the pressors. 2. She is maintaining adequate blood pressure off pressors. 3. Continue aspirin 81 mg one a day. Isabelle Houston MD EC/MODL /[id number]
[2019-11-06 05:10] LABS: BASOPHILS # (AUTO) 0.1 (0.0-0.1); BASOPHILS % 0.5 % (0.0-1.0); EOSINOPHILS # (AUTO) 0.2 (0.0-0.4); EOSINOPHILS % 1.5 % (0.0-6.0); HEMATOCRIT 27.5 % (34.2-44.1); HEMOGLOBIN 7.7 g/dL (12.0-16.0); LYMPHOCYTES # (AUTO) 1.3 (1.0-3.2); LYMPHOCYTES % 11.4 % (18.0-39.1); MEAN CORPUSCULAR HEMOGLOBIN 28.2 pg (28-32); MEAN CORPUSCULAR VOLUME 100.7 fL (81-99); MONOCYTES # (AUTO) 0.8 (0.2-0.8); MONOCYTES % 7.1 % (4.4-11.3); NEUTROPHILS # (AUTO) 8.7 (2.1-6.9); NEUTROPHILS % 78.5 % (38.7-80.0); PLATELET COUNT 261 x10e3/uL (140-360); RED BLOOD COUNT 2.73 x10e6/uL (3.6-5.1); RED CELL DISTRIBUTION WIDTH 22.9 % (11.7-14.4)
[2019-11-06 05:23] LABS: INR 1.14; PROTHROMBIN TIME 15.2 seconds (11.9-14.5)
[2019-11-06 05:31] LABS: ALANINE AMINOTRANSFERASE 113 IU/L (0-55); ALBUMIN 2.8 g/dL (3.5-5.0); ALBUMIN/GLOBULIN RATIO 0.6 (0.8-2.0); ALKALINE PHOSPHATASE 124 IU/L (40-150); ANION GAP 14.9 mmol/L (8-16); BLOOD UREA NITROGEN 15 mg/dL (7-26); BUN/CREATININE RATIO 16 (6-25); CARBON DIOXIDE 28 mmol/L (22-29); CHLORIDE 98 mmol/L (98-107); CREATININE, SERUM 0.92 mg/dL (0.57-1.11); EST GLOMERULAR FILTRATION RATE > 60 ML/MIN (60-); GLUCOSE 134 mg/dL (74-118); POTASSIUM 3.9 mmol/L (3.5-5.1); SODIUM 137 mmol/L (136-145)
[2019-11-06] MEDS: HYDROMORPHONE 2MG/ML 2 MG/ML ML IV PRN ×3 (05:41→19:12)
[2019-11-06 05:42] LABS: MAGNESIUM 1.6 MG/DL (1.3-2.1); PHOSPHORUS 5.3 MG/DL (2.3-4.7)
[2019-11-06] MEDS: MEROPENEM 500MG/ NS 50ML 50 ML IV SCH (06:28)
[2019-11-06] MEDS: LINEZOLID 600 MG/D5W 300ML 300 ML IV SCH ×2 (06:42→18:01)
[2019-11-06] MEDS: INSULIN REGULAR, HUMAN 100 UNIT/1 ML 3ML VIAL SQ SCH ×5 (06:44→23:52)
[2019-11-06] MEDS: FUROSEMIDE INJ 10 MG/ML 2 ML VIAL IV SCH (08:45)
[2019-11-06] MEDS: ACETAZOLAMIDE 250 MG TAB PO SCH ×2 (08:45→18:01)
[2019-11-06] MEDS: FAMOTIDINE 20 MG/2 ML VIAL IV SCH ×2 (08:45→18:01)
[2019-11-06] MEDS: MIDODRINE 2.5 MG TAB PO SCH ×2 (08:45→13:00)
[2019-11-06] MEDS: ASPIRIN 81 MG CHEW TAB PO SCH (08:45)
[2019-11-06] MEDS: QUETIAPINE FUMARATE 25 MG TAB PO SCH ×2 (08:46→20:38)
[2019-11-06] MEDS: SERTRALINE HCL 50 MG TAB PO SCH (08:46)
[2019-11-06] MEDS: BALSAM PERU/CASTOR OIL 60 GM OINT...G. TP SCH (08:46)
--- NOTE | 2019-11-06 09:36 | Diagnostic Imaging Report ---
EXAMINATION: CHEST SINGLE (PORTABLE) INDICATION: Shortness of breath COMPARISON: Multiple prior chest radiographs, most recently 11/05/2019 FINDINGS: LINES/TUBES:Tracheostomy tube and left PICC line unchanged. EKG leads overlie the chest. LUNGS:The lung volumes remain low. Unchanged bilateral interstitial and airspace opacities. PLEURA:Unchanged layering bilateral pleural effusions. No pneumothorax. MEDIASTINUM:The cardiomediastinal silhouette appears unchanged in size and shape. BONES/SOFT TISSUES:No acute osseous injury. ABDOMEN:No free air under the diaphragm. IMPRESSION: No significant interval change. Signed by: Shashi Norris MD on 11/06/2019 9:33 AM
[2019-11-06 11:14] LABS: ABG HCO3 33 mmol/L (22-26); ABG PCO2 69 mmHg (35-45); ABG PH 7.29 (7.35-7.45); ABG PO2 117 mmHg (80-105); ABG TCO2 35
--- NOTE | 2019-11-06 11:47 | NUR ---
CALL TO [facility] TO CONFIRM REFERRAL RECEIVED. [facility] CONFIRMED. REQUESTED UPDATED CLINS. UPDATED CLINICALS FAXED TO [facility] @ [phone]. AUTH STILL PENDING.
--- NOTE | 2019-11-06 12:07 | Progress Note ---
DATE: SUBJECTIVE: Ms. Dick is doing well. There are no new complaints. REVIEW OF SYSTEMS: She seems to be better. PHYSICAL EXAMINATION: GENERAL: She is currently alert and oriented. VITAL SIGNS: Stable, afebrile. HEENT: She is not icteric. NECK: Supple. CHEST: Clear. HEART: S1, S2. ABDOMEN: Soft. Bowel sounds present. EXTREMITIES: No edema. SKIN: No rash. IMPRESSION: Sepsis on admission, better. Bacteremia, line infection on admission, better. Pneumonia, aspiration, healthcare associated also better. Repeat blood culture is negative. Her white count is11. Clinically, she seems to be getting better. She is currently on linezolid and meropenem to finish 14 days. She is also on fluconazole to finish 14 days. Continue supportive care. We will follow. MD CARLOS Braswell/MAREK /[id number]
--- NOTE | 2019-11-06 14:50 | Progress Note ---
DATE: 11/06/2019 Cardiology Progress Note SUBJECTIVE: Remains in vent support, off pressors. OBJECTIVE: VITAL SIGNS: Temperature 97.4, heart rate 92, blood pressure 97/68, respiratory rate 18, and O2 saturation 98%. GENERAL: No acute distress. Alert. NECK: Trach in place. CHEST: Decreased breath sounds. CARDIOVASCULAR: Regular rate and rhythm. Normal S1, S2. ABDOMEN: Soft. EXTREMITIES: With acrocyanosis and with gangrene of the digits and distal forefoot. CARDIOVASCULAR MEDICATIONS: Reviewed. Furosemide 20 mg daily, aspirin 81 mg daily, and midodrine 10 mg t.i.d. STUDIES: Reviewed. Creatinine 0.9. White blood cells 11, hemoglobin 7.7, and platelets 261. ASSESSMENT: A 49-year-old woman with severe sepsis with septic shock, now status post pressors with pressors associated distal extremity gangrenous changes, anemia, and acute respiratory failure. RECOMMEND: 1. Continue aspirin and Lovenox. 2. As blood pressure allows, we will attempt starting the next several days to gradually increase midodrine. If H and H drops further, consider PRBC transfusion. Keep well hydrated. MD ALLISON Borja/MODAlfredo /[id number]
[2019-11-06] MEDS: MIDODRINE HCL 5 MG TABLET PO SCH (17:00)
[2019-11-06] MEDS: ENOXAPARIN SOD INJ 40 MG/0.4 ML SYR SC SCH (18:01)
[2019-11-06] MEDS: FLUCONAZOLE 200 MG/100 ML 100 ML IV SCH (18:01)
[2019-11-06] MEDS: OXYCODONE HCL IR 5 MG TAB PO PRN (22:49)
[2019-11-07] VITALS (26 sets, daily range): BP systolic 86–119; BP diastolic 49–107
[2019-11-07] MEDS: METOCLOPRAMIDE HCL 10 MG/2ML VIAL IV SCH ×3 (05:19→17:54)
[2019-11-07] MEDS: LINEZOLID 600 MG/D5W 300ML 300 ML IV SCH ×2 (05:19→17:54)
[2019-11-07] MEDS: HYDROMORPHONE 2MG/ML 2 MG/ML ML IV PRN (05:19)
[2019-11-07] MEDS: INSULIN REGULAR, HUMAN 100 UNIT/1 ML 3ML VIAL SQ SCH ×3 (05:28→18:20)
[2019-11-07 06:01] LABS: BASOPHILS % 0.6 % (0.0-1.0); EOSINOPHILS # (AUTO) 0.1 (0.0-0.4); EOSINOPHILS % 1.8 % (0.0-6.0); HEMATOCRIT 23.6 % (34.2-44.1); LYMPHOCYTES # (AUTO) 0.6 (1.0-3.2); LYMPHOCYTES % 8.8 % (18.0-39.1); MEAN CORPUSCULAR HEMOGLOBIN 28.1 pg (28-32); MEAN CORPUSCULAR VOLUME 100.4 fL (81-99); MONOCYTES # (AUTO) 0.4 (0.2-0.8); NEUTROPHILS # (AUTO) 5.6 (2.1-6.9); NEUTROPHILS % 82.1 % (38.7-80.0); PLATELET COUNT 201 x10e3/uL (140-360); RED BLOOD COUNT 2.35 x10e6/uL (3.6-5.1); RED CELL DISTRIBUTION WIDTH 22.8 % (11.7-14.4)
[2019-11-07 06:14] LABS: HEMOGLOBIN 6.6 g/dL (12.0-16.0)
[2019-11-07 06:25] LABS: ALANINE AMINOTRANSFERASE 92 IU/L (0-55); ALBUMIN 2.7 g/dL (3.5-5.0); ALBUMIN/GLOBULIN RATIO 0.6 (0.8-2.0); ALKALINE PHOSPHATASE 110 IU/L (40-150); ANION GAP 12.7 mmol/L (8-16); BLOOD UREA NITROGEN 17 mg/dL (7-26); BUN/CREATININE RATIO 21 (6-25); CALCIUM 8.7 mg/dL (8.4-10.2); CARBON DIOXIDE 31 mmol/L (22-29); CHLORIDE 97 mmol/L (98-107); CREATININE, SERUM 0.82 mg/dL (0.57-1.11); EST GLOMERULAR FILTRATION RATE > 60 ML/MIN (60-); GLUCOSE 120 mg/dL (74-118); POTASSIUM 3.7 mmol/L (3.5-5.1); SODIUM 137 mmol/L (136-145)
--- NOTE | 2019-11-07 06:30 | NUR ---
called answering service of Dr Michael Mcdonald, try to report lab result, awaiting for MD to call back.
[2019-11-07 07:12] LABS: ANISOCYTOSIS MODERATE; HYPOCHROMASIA SLIGHT; MICROCYTOSIS SLIGHT
[2019-11-07 07:14] LABS: PLATELET ESTIMATE ADEQUATE; PLATELET MORPHOLOGY COMMENT FEW GIANT; RBC MORPHOLOGY COMMENT ABNORMAL
[2019-11-07] MEDS: MIDODRINE HCL 5 MG TABLET PO SCH ×3 (08:32→15:12)
[2019-11-07] MEDS: FUROSEMIDE INJ 10 MG/ML 2 ML VIAL IV SCH (08:33)
[2019-11-07] MEDS: FAMOTIDINE 20 MG/2 ML VIAL IV SCH ×2 (08:35→16:12)
[2019-11-07] MEDS: QUETIAPINE FUMARATE 25 MG TAB PO SCH ×2 (08:36→21:45)
[2019-11-07] MEDS: SERTRALINE HCL 50 MG TAB PO SCH (08:36)
[2019-11-07] MEDS: ACETAZOLAMIDE 250 MG TAB PO SCH ×2 (08:36→16:12)
[2019-11-07] MEDS: ASPIRIN 81 MG CHEW TAB PO SCH (08:36)
[2019-11-07] MEDS ORDERED: SODIUM CHLORIDE 0.9% 250ML 250 ML IV SCH (08:45)
[2019-11-07] MEDS ORDERED: DIPHENHYDRAMINE HCL INJ 50 MG/ML VIAL IV SCH (09:15)
--- NOTE | 2019-11-07 11:41 | NUR ---
ST Note: Order for Passy Isela Speaking Valve eval noted. EMR reviewed. Discussed case with ALEXANDRA Scott. Pt currently vent dependant with current orders FiO2 .50, pressure support of 22, PEEP of 8, support breath rate at 20. These parameters indicate pt would not be able to tolerate cuff deflation or use of PMV. Will complete cuff deflation trials prior to PMV eval as indicated.
--- NOTE | 2019-11-07 13:45 | NUR ---
infectious disease parents note the patient remains intensive care unit she is intermittent but she seems to be more alert no new problems eulogio Dick is doing well. There are no new complaints. REVIEW OF SYSTEMS:Otherwise were negative She seems to be better. PHYSICAL EXAMINATION:her vitals stable afebrile GENERAL: She is currently alert and oriented. follow simple command VITAL SIGNS: Stable, afebrile. HEENT: She is not icteric. NECK: Supple. CHEST: Clear. HEART: S1, S2. ABDOMEN: Soft. Bowel sounds present. EXTREMITIES: No edema. there is some changes of ischemia at the distal part of the feet SKIN: No rash. lab data reviewed blood cultures are negative IMPRESSION: Sepsis on admission, better. Bacteremia, line infection on admission, better. Pneumonia, aspiration, healthcare associated also better. Repeat blood culture is negative. Her white count is11. Clinically, she seems to be getting better. She is currently on linezolid and meropenem to finish 14 days. She is also on fluconazole to finish 14 days. Continue supportive care. We will follow. I agree with LTAC evaluation
[2019-11-07] MEDS: FLUCONAZOLE 200 MG/100 ML 100 ML IV SCH (15:12)
--- NOTE | 2019-11-07 15:18 | NUR ---
Nutrition Intervention Note RD Recommendation(s) for Physician: -Recommend to advance TF of Vital AF 1.2 to goal rate of 50 mL/hr (provides 1440 kcal, 90 g protein) -Water/fluid management per MD Plan of Care: RD following, monitoring for tolerance and adequacy, tube feed recommendation Nutrition reason for involvement: follow up RD Assessment 11/06: Follow up. Chart reviewed. Pt remains on vent support and is off pressors per chart. Pt is receiving TF @ 40 mL/hr. Recommend to continue advancing towards recommended goal. Will continue to monitor. 11/01: Follow up. Chart reviewed. LTAC is being discussed per chart. Pt remains on mechanical ventilation. Pt is tolerating TF @ 30 mL/hr. Recommend advancing to goal rate of 50 mL/hr. Will continue to monitor. 10/29: Follow up. Pt remains on vent via trach and sedated with Precedex. Pt currently on Levophed at 2 mcg/min. Pt currently tolerating TF via PEG at 30 ml/hr, recommend advancing as tolerated to goal rate. Pt discussed during MDR. Chart reviewed. Will continue to monitor. 10/24: Follow up. Chart reviewed. Pt remains on the ventilator and is sedated. Per nursing note, pts tube feeding has been on hold at this time due to high residuals. 550 mL residuals were recorded yesterday. Recommend increasing resuming TF medically appropriate. Will continue to monitor (10/22/19) Pt is a 49 year old female admitted with septic shock and pneumonia. Pt is from a LTAC facility. Pt is mechanically ventilated and has a tracheostomy. Unable to obtain nutrition history from pt. There are no previous weights in chart. Pt is receiving Vital AF 1.2 @ 30 mL/hr through PEG tube. Recommendations provided. RD to manage TF order per Dr. Melvin. Will continue to monitor. Principal Problems/Diagnoses: septic shock and pneumonia. PMH: Chronic respiratory failure, Chronic neurological impairment, Recent Staph aureus pneumonia. I/O: 1780/1750 GI: soft/large/round abdomen, last recorded BM 11/02, liquid stools Skin: sacrum breakdown Labs: 11/06: Na 137, K 3.7, BUN 17, Cr 0.82, Glu 120, AST 35, ALT 92 10/31: Na 140, K 3.2, BUN 19, Cr 0.77, Glu 159, Ca 8.0 10/29: Na 146, K 4.2, BUN 29, Cr 0.81, Gluc 146 10/24: Na 134, K 5.5, BUN 49, Cr 1.15, Glu 141, Total Bili1.8, Direct Bili 1.2, AST > 4202, ALT > 4113 (10/21) Na 138, K 4.6, BUN 23, Cr 1.09, Glu 182 Meds: pepcid, Lasix, insulin, dilaudid, antibiotic, reglan, lactulose Ht: 64 inches Wt: 176.5 (11/03) 176.5 lbs (10/29) questionable wt change 191. lb (10/29) 185 lbs (10/23) 160 lbs (10/19) Suspect possible weight error BMI: 27.5 kg/m2 using wt of 160 lbs IBW: 120 lbs Malnutrition Evaluation (10/30/19) The patient does not meet criteria for a specified degree of malnutrition at this time. Will re-evaluate at follow-up as appropriate. Intake adequacy: TF not meeting needs x 5 days Wt loss: unable to evaluate Fat loss: none observed, ample skinfold thickness Muscle loss: none observed, shoulder round Edema: +1 generalized edema Functional status; unable to evaluate- intubated and sedated Nutrition Prescription (Diet Order): Vital AF 1.2 @ 20 mL/hr, infusing at 40 ml/hr (1152 kcal and 72 gm protein) Estimated Nutritional Needs: 2170-0797 calories/day (18-20 kcal/kg CBW) 87-145 g protein/day (1.2-2g pro/kg CBW) Diet Adequacy: not meeting calorie needs, not meeting protein needs Tolerance: tolerating TF Diet Education Needs Assessment: Diet education not indicated, patient is mechanically ventilated Nutrition Care Level: high TF not at goal rate Nutrition Diagnosis: Inadequate oral intake related to trach/mechanical ventilation as evidenced by pt requiring enteral nutrition. Goal: Patient will meet 75-100% of estimated needs by follow up Progress: progressing Interventions: - Composition, Rate, Route, Recommended Modifications Monitoring/Evaluation: -Total energy intake, Total protein intake, Formula/Solution, Weight change Signed: Devi Nelson, RD, LD
[2019-11-07] MEDS: BALSAM PERU/CASTOR OIL 60 GM OINT...G. TP SCH (15:19)
[2019-11-07] MEDS: ENOXAPARIN SOD INJ 40 MG/0.4 ML SYR SC SCH (16:12)
--- NOTE | 2019-11-07 17:26 | NUR ---
AUTH RECEIVED FROM [facility]. NO BED ASSIGNED. CALL TO [facility]; CHET FOR MOT. MOT WAS INITIATED. CALL TO ALEXANDRA [facility]URKS REGARDING POSSIBLE TXF TODAY. STATES PT RECEIVING BLOOD AT THIS TIME. REQUESTED TRANSFER IN AM. CALL TO [facility]. STATES THEY DID NOT HAVE A BED AVAILABLE AND WILL HOPE FOR ONE IN THE AM.
--- NOTE | 2019-11-07 19:14 | Progress Note ---
DATE: 11/07/2019 Cardiology Progress Note SUBJECTIVE: No new complaints. OBJECTIVE: VITAL SIGNS: Temperature 97.3, heart rate 98, blood pressure 119/107, respiratory rate 22, and O2 saturation 100%. GENERAL: Sedated, chronically ill-appearing. NECK: With trach in place, connected to vent. CHEST: With decreased breath sounds. CARDIOVASCULAR: Regular rate and rhythm. Normal S1 and S2. ABDOMEN: Soft. Bowel sounds positive. EXTREMITIES: Trace edema and acrocyanosis with gangrene to digit of lower extremities. CARDIOVASCULAR MEDICATIONS: Reviewed. Lovenox 40 mg subcutaneous daily, aspirin 81 mg daily, furosemide 20 mg daily, and midodrine 10 mg t.i.d. STUDIES: Reviewed. Creatinine 0.8 and glucose 120. White blood cells 6.8, hemoglobin 6.6. Plans for PRBC transfusion today. Platelets 201. ASSESSMENT AND PLAN: 1. A 49-year-old woman presents with severe sepsis with septic shock, now status post pressors. Weaning midodrine. 2. Acrocyanosis and gangrene to distal extremities. 3. Anemia requiring PRBC transfusions. RECOMMEND: PRBC transfusion today. Once H and H stable and hemodynamically stable, initiate gradual weaning of midodrine dosing. Continue to maintain distal extremities clean and dry. Danial Christiansen MD AFSummer/MODL /[id number]
[2019-11-08] VITALS (14 sets, daily range): BP systolic 93–116; BP diastolic 68–80
[2019-11-08] MEDS: METOCLOPRAMIDE HCL 10 MG/2ML VIAL IV SCH ×3 (00:29→11:27)
[2019-11-08] MEDS ORDERED: SODIUM CHLORIDE 0.9% 250ML 250 ML ONE (00:29)
[2019-11-08] MEDS: LINEZOLID 600 MG/D5W 300ML 300 ML IV SCH (05:29)
[2019-11-08 05:37] LABS: BASOPHILS % 0.4 % (0.0-1.0); EOSINOPHILS # (AUTO) 0.1 (0.0-0.4); HEMATOCRIT 26.6 % (34.2-44.1); LYMPHOCYTES # (AUTO) 0.6 (1.0-3.2); LYMPHOCYTES % 6.1 % (18.0-39.1); MEAN CORPUSCULAR HEMOGLOBIN 30.2 pg (28-32); MEAN CORPUSCULAR HGB CONC 30.1 g/dL (31-35); MEAN CORPUSCULAR VOLUME 100.4 fL (81-99); MONOCYTES # (AUTO) 0.4 (0.2-0.8); MONOCYTES % 4.5 % (4.4-11.3); NEUTROPHILS # (AUTO) 7.9 (2.1-6.9); NEUTROPHILS % 87.6 % (38.7-80.0); PLATELET COUNT 220 x10e3/uL (140-360); RED BLOOD COUNT 2.65 x10e6/uL (3.6-5.1); RED CELL DISTRIBUTION WIDTH 21.9 % (11.7-14.4)
[2019-11-08] MEDS: INSULIN REGULAR, HUMAN 100 UNIT/1 ML 3ML VIAL SQ SCH ×3 (06:00→11:28)
[2019-11-08 06:02] LABS: ANION GAP 14.7 mmol/L (8-16); BLOOD UREA NITROGEN 18 mg/dL (7-26); BUN/CREATININE RATIO 23 (6-25); CALCIUM 9.1 mg/dL (8.4-10.2); CARBON DIOXIDE 30 mmol/L (22-29); CHLORIDE 99 mmol/L (98-107); EST GLOMERULAR FILTRATION RATE > 60 ML/MIN (60-); GLUCOSE 116 mg/dL (74-118); POTASSIUM 3.7 mmol/L (3.5-5.1); SODIUM 140 mmol/L (136-145)
[2019-11-08] MEDS: MIDODRINE HCL 5 MG TABLET PO SCH ×2 (08:25→11:27)
[2019-11-08] MEDS: FAMOTIDINE 20 MG/2 ML VIAL IV SCH (08:25)
[2019-11-08] MEDS: ASPIRIN 81 MG CHEW TAB PO SCH (08:25)
[2019-11-08] MEDS: SERTRALINE HCL 50 MG TAB PO SCH (08:25)
[2019-11-08] MEDS: QUETIAPINE FUMARATE 25 MG TAB PO SCH (08:25)
[2019-11-08] MEDS: FUROSEMIDE INJ 10 MG/ML 2 ML VIAL IV SCH (08:25)
[2019-11-08] MEDS: ACETAZOLAMIDE 250 MG TAB PO SCH (08:25)
[2019-11-08 09:41] LABS: INR 1.32
--- NOTE | 2019-11-08 10:57 | NUR ---
LONG-TERM ACUTE CARE DISCHARGE INFORMATION PATIENT HAS BEEN ACCEPTED TO: NAME: [facility] ADDRESS: [address] [place] [id number] ACCEPTING WAITSTAFF CAPTAIN: INGRID PETER, CONTAINER PACKER OPERATOR ACCEPTING MD: Michael HODGES ROOM: 102 NURSE CALL REPORT TO: [phone] THE FOLLOWING DOCUMENTS MUST ACCOMPANY PATIENT FOR TRANSFER: COPIED CHART: CM MOT INFO RECEIVED FROM: [facility] ORDER/RECONCILED MED LIST: ALEXANDRA BURKS [id number] DNR: N/A
[2019-11-08] MEDS: BALSAM PERU/CASTOR OIL 60 GM OINT...G. TP SCH (11:27)
--- NOTE | 2019-11-08 11:49 | Progress Note ---
DATE: 11/08/2019 Cardiology Progress Note SUBJECTIVE: No new complaints today. OBJECTIVE: VITAL SIGNS: Temperature 100.1, heart rate 105, blood pressure 99/70, respiratory rate 26, and O2 saturation 100%. GENERAL: A chronically ill-appearing. NECK: Trach in place. CHEST: Decreased breath sounds. CARDIOVASCULAR: Regular rate and rhythm. Normal S1, S2. ABDOMEN: Soft. Bowel sounds positive. EXTREMITIES: No edema with wet gangrene to digits as well as bilateral forefoot and toes affecting four extremities. CARDIOVASCULAR MEDICATIONS: Reviewed. Lovenox 40 mg subcu daily, furosemide 20 mg daily, midodrine 10 mg t.i.d., and aspirin 81 mg daily. STUDIES: Reviewed. Creatinine 0.8. White blood cells 8.9, hemoglobin 8, and platelets 220. AST 35, ALT 92, and alkaline phosphatase 110. ASSESSMENT AND PLAN: A 49-year-old woman with anemia, diabetes, and severe sepsis status post septic shock requiring pressors with gangrenous changes to four extremities. The patient is status post PRBC transfusion 1 unit. Continue current cardiovascular medications. Blood pressure today is systolic 90s. Hold off on decreasing midodrine further at this point due to low normal blood pressure reads. Keep distal extremities dry and clean. Danial Christiansen MD [facility] /[id number]
--- NOTE | 2019-11-08 12:26 | NUR ---
Speech Therapy NOTE: No change in pt respiratory status from 11/07/19. Will defer PMSV evaluation and continue to monitor pt progress and readiness for Speech Therapy intervention. Handoff to ALEXANDRA Scott
== END 2019-11-08 12:47 | DRG 314 ==
LOC: ER 04:16 → ERHOLD 05:37 → ICU 11:58
PROC: 3E043XZ Introduction of Vasopressor into Central Vein, Percutaneous Approach (ICD-10-PCS; principal; 2019-10-20)
PROC: 02HV33Z Insertion of Infusion Device into Superior Vena Cava, Percutaneous Approach (ICD-10-PCS; 2019-10-20)
PROC: B548ZZA Ultrasonography of Superior Vena Cava, Guidance (ICD-10-PCS; 2019-10-20)
PROC: 5A1955Z Respiratory Ventilation, Greater than 96 Consecutive Hours (ICD-10-PCS; 2019-10-20)
PROC: 02HV33Z Insertion of Infusion Device into Superior Vena Cava, Percutaneous Approach (ICD-10-PCS; 2019-10-29)
PROC: B548ZZA Ultrasonography of Superior Vena Cava, Guidance (ICD-10-PCS; 2019-10-29)
PROC: 30233N1 Transfusion of Nonautologous Red Blood Cells into Peripheral Vein, Percutaneous Approach (ICD-10-PCS; 2019-11-08)
DX: T80.211A Bloodstream infection due to central venous catheter, initial encounter (principal); A41.02 Sepsis due to Methicillin resistant Staphylococcus aureus; R65.21 Severe sepsis with septic shock; J15.6 Pneumonia due to other Gram-negative bacteria; J96.21 Acute and chronic respiratory failure with hypoxia; J69.0 Pneumonitis due to inhalation of food and vomit; G93.41 Metabolic encephalopathy; N17.0 Acute kidney failure with tubular necrosis; J96.22 Acute and chronic respiratory failure with hypercapnia; K72.00 Acute and subacute hepatic failure without coma; G93.1 Anoxic brain damage, not elsewhere classified; Z99.11 Dependence on respirator [ventilator] status; E87.3 Alkalosis; I96 Gangrene, not elsewhere classified; K56.7 Ileus, unspecified; Z93.0 Tracheostomy status; F32.9 Major depressive disorder, single episode, unspecified; Z87.891 Personal history of nicotine dependence; E66.9 Obesity, unspecified; Z93.1 Gastrostomy status; D64.9 Anemia, unspecified; I50.9 Heart failure, unspecified; I11.0 Hypertensive heart disease with heart failure; Z68.30 Body mass index [BMI] 30.0-30.9, adult; D63.8 Anemia in other chronic diseases classified elsewhere; Z85.118 Personal history of other malignant neoplasm of bronchus and lung; B96.5 Pseudomonas (aeruginosa) (mallei) (pseudomallei) as the cause of diseases classified elsewhere; Z99.81 Dependence on supplemental oxygen; I73.89 Other specified peripheral vascular diseases; E83.39 Other disorders of phosphorus metabolism; E87.6 Hypokalemia; Z11.59 Encounter for screening for other viral diseases
CPT/HCPCS: 36415; 36569; 36600; 51700; 71045; 71250; 74018; 74177; 76856; 80048; 80053; 80076; 80202; 81001; 82550; 82553; 82805; 82948; 83605; 83735; 83880; 84100; 84132; 84484; 85014; 85025; 85610; 86850; 86870; 86880; 86900; 86905; 86920; 86922; 87040; 87070; 87071; 87186; 87205; 93005; 93306; 94002; 94003; 96372; 99001; 99251; 99285; J0610; J1200; J1450; J1644; J1650; J1817; J1940; J2020; J2185; J2250; J2370; J2543; J2765; J3370; J3475; J3480; J7030; J7040; J7050; J7070; J7121; J7799; P9016; P9045; Q9967; U0002